=== PATIENT | male | born 1940 | race Caucasian/White ===

== ENCOUNTER 2016-05-12 09:18 | Emergency (ER) | payer OTHER ==
[2016-05-12 10:13] LABS: URINE CULTURE PL NEEDED? NO; URINE SOURCE CATH
[2016-05-12 10:16] LABS: BILIRUBIN URINE NEGATIVE (NEGATIVE); BLOOD URINE 4+ (NEGATIVE); CLARITY CLEAR (CLEAR); COLOR YELLOW; GLUCOSE URINE NEGATIVE (NEGATIVE); LEUKOCYTES URINE NEGATIVE (NEGATIVE); NITRITE URINE NEGATIVE (NEGATIVE); PROTEIN URINE TRACE mg/dL (NEGATIVE); UROBILINOGEN URINE NORMAL
[2016-05-12 10:20] LABS: URINE RBC TNTC /HPF (<10)
--- NOTE | 2016-05-12 10:29 | PROVIDER DOCUMENTATION ---
HPI-General Adult - General Chief Complaint: Urinary Retention Stated Complaint: URINARY RETENTION Time Seen by Provider: 05/12/16 09:58 Source: patient Allergies/Adverse Reactions: Patient Allergies Allergy/AdvReac Type Severity Reaction Status Date / Time No Known Allergies Allergy Verified 11/12/14 12:35 Home Medications: Aspirin 81 mg PO DAILY 11/12/14 Cyclobenzaprine [Flexeril] 10 mg PO PRN PRN 12/09/14 Lorazepam [Ativan] 1 mg PO BID 12/09/14 Tamsulosin [Flomax] 0.4 mg PO DAILY 12/09/14 - History of Present Illness -Gen Adult Nature of Presenting Problems: Pt. is 76 yom that presents with c/o urinary retention that began yesterday. Pt. has been having BM's but suddenly became unable to urinate. Pt. reports an increase in lower extremity edema. Pt. also reports some recent diarrhea. Family at bedside reports a recent change in the patients diet. Pt. denies any flank pain or other symptoms. Location of Pain/Injury: reports: pelvis. denies: head, face, mouth, neck, chest, upper extremity, hand(s), abdomen, back, genitalia, lower extremity, feet , upper body, lower body, generalized Pain Radiation: reports: no radiation Quality of Pain: reports: aching. denies: burning, cramping, dull, fullness, indigestion, pressure, sharp, stabbing, tearing, throbbing, tightness Severity: reports: moderate. denies: mild, severe Onset/Duration: reports: gradual, 24 hours ago Timing: reports: still present, constant. denies: improving, gone now, resolved prior to arrival, intermittent, changing over time, getting worse Context/Activities at Onset: reports: none. denies: recent emotional stress, recent physical stress, recent trauma history, possible bad food, cold exposure , out of country travel Modifying Factors: improves with: nothing Associated Symptoms: reports: genitourinary problems. denies: anxiety, arm pain , back/neck pain, chest pain, constipation, cough, diaphoresis, diarrhea, dizziness, EENT symptoms, fatigue, fever/chills, headaches, heartburn, joint pain, loss of appetite, malaise, muscle aches, sinus congestion/drainage, nausea , rash, seizure, shortness of breath, sensory/motor loss, pain with inspiration , swelling/mass in abdomen, syncope, vomiting, weakness, trouble walking Similar Symptoms Previously?: Yes Recently seen or treated by another doctor?: No Review of Systems - Adult - REVIEW OF SYSTEMS - ADULT Constitutional: reports: see HPI. denies: chills, fever, fatique Eyes: reports: see HPI. denies: discharge, blurred vision, double vision Ears, Nose, Mouth & Throat: reports: see HPI. denies: ear discharge, ear pain, hearing loss, nose pain, loose teeth, mouth/dental pain, throat swelling Cardiovascular: reports: see HPI. denies: chest pain, irregular heart rate, orthopnea, palpitations, syncope Respiratory: reports: see HPI. denies: chronic cough, cough, dyspnea on exertion, pleurisy, shortness of breath, wheezing Gastrointestinal: reports: see HPI. denies: abdominal pain, hematemesis, difficulty swallowing, frequent heartburn, nausea, poor appetite, vomiting Genitourinary: reports: see HPI, hematuria, urinary retention. denies: discharge, flank pain, frequent UTI's, hesitency Musculoskeletal: reports: see HPI. denies: bone pain, back pain, joint pain, muscle aches, neck pain Integumentary: reports: see HPI. denies: hives, itching, rash, skin thickening Neurological: reports: see HPI. denies: ataxia, headache/migraines, paresthesia , seizure, slurred speech, tremors Psychiatric: reports: see HPI. denies: anxiety, depression, emotional problems , insomnia, panic attacks, suicidal thoughts Past History - Adult - PAST MEDICAL HISTORY-ADULT Review of Records: reports: Old Records Reviewed, Nursing Assessment Review, Medications Reviewed, Social history reviewed & non-contributory. Major Childhood Illnesses: reports: denies history Psychiatric: reports: anxiety - PRIOR SURGERIES/PROCEDURES Surgical/Procedure History: reports: appendectomy, hernia repair - IMMUNIZATION STATUS Childhood Immunizations: See Nurse Assessment Flu Vaccine: See Nurse Assessment Physical Exam-General - PHYSICAL EXAM-ADULT Initial Vital Signs Reviewed: Yes - CONSTITUTIONAL General Appearance: alert, mild distress, thin. negative: obese, anxious, lethargic, slow to respond, obtunded, combative - EYES Eyes: PERRL/EOMI, pink conjunctivae. negative: conjuctival exudate, photophobia , subconjunctival hemorrhage - HEAD, EARS, NOSE, MOUTH & THROAT HENMT: normocephalic/atraumatic, moist mucous membranes, normal ENT inspection. negative: angioedema, frontal tenderness, maxillary tenderness - NECK Neck: non-tender, normal inspection. negative: lymphadenopathy, trachial deviation, thyromegaly - RESPIRATORY Respiratory: lungs clear, normal breath sounds. negative: crackles, rales, rhonchi, stridor, wheezing - CARDIOVASCULAR Cardiovascular: normal peripheral pulses, regular rate, rhythm, no edema, no JVD , no murmur. negative: extra beats, friction rub, irregularly irregular - CHEST (BREASTS) Chest/Breast: deferred - GASTROINTESTINAL (ABDOMEN) Abdominal Exam: normal bowel sounds, non tender, soft. negative: distended, guarding, rigid, rebound, tenderness, hernia, mass - GENITOURINARY Male Genitalia: deferred Rectal Exam: deferred Hemoccult Exam: deferred - LYMPHATIC Lymphatic: no adenopathy. negative: axilla node tender, cervical node tenderness - MUSCULOSKELETAL Back Exam: normal inspection, no CVA tenderness, no vertebral tenderness. negative: ecchymosis, muscle spasm, vertebral tenderness Extremity: normal range of motion, non-tender, pedal edema. negative: deformity , erythema, inflammation, swelling, tenderness Peripheral Pulses: radial (R): 2+, radial (L): 2+ - SKIN Integumentary: normal color, normal turgor, warm/dry. negative: cyanosis, diaphoresis, ecchymosis, erythema, jaundice, mottled, pallor, petechiae, purpura , rash, swelling, tenderness - NEUROLOGIC Neurologic: grossly normal, no motor/sensory deficits. negative: aphasia, facial droop, focal weakness, motor weakness, sensory deficit - PSYCHIATRIC Psych/Mental Status: normal mood/affect, normal thought content, normal thought process, oriented x 3. negative: anxious, paranoid, tearful Progress - PLAN OF CARE/RESULTS Progress/Plan/Lab Results: Discussed results and plan of care with patient. Patient agrees with plan and verbalizes understanding. Vital Signs Temp Pulse Resp BP Pulse Ox 05/12/16 09:26 97.8 F 86 18 142/85 100 No Known Allergies Allergy (Verified 11/12/14 12:35) Aspirin 81 mg PO DAILY 11/12/14 Cyclobenzaprine [Flexeril] 10 mg PO PRN PRN 12/09/14 Lorazepam [Ativan] 1 mg PO BID 12/09/14 Tamsulosin [Flomax] 0.4 mg PO DAILY 12/09/14 Carbidopa/Levodopa [Sinemet 25/100] 1 each PO TID #90 tablet 12/12/14 Citalopram [Celexa] 20 mg PO QHS #30 tablet 12/12/14 Lactulose 30 ml PO DAILY PRN #30 udc 12/12/14 Polyethylene Glycol 3350 [Miralax] 17 gm PO DAILY #30 powder, packet 12/12/14 I&O 05/11/16 05/12/16 05/13/16 06:59 06:59 06:59 Output Total 1000 Balance -1000 Laboratory 05/12/16 10:00 Urine Source CATH Urine Color YELLOW Urine Clarity CLEAR Urine pH 5.0 Ur Specific Wilson 1.020 Urine Protein TRACE A Urine Ketones TRACE Urine Blood 4+ Urine Nitrite NEGATIVE Urine Bilirubin NEGATIVE Urine Urobilinogen NORMAL Urine Microscopic RBC TNTC A Urine WBC NEGATIVE Urine Glucose NEGATIVE Orders Category Date Time Status Bladder Scan and Record Result ORDERED Care 05/12/16 09:58 Active Rowley Cath Insertion ORDERED Care 05/12/16 10:[address] W/POSS RFLX CULT [URINALYSIS] Stat Lab 05/12/16 10:00 Completed Laboratory Tests 05/12/16 10:00 Urine Source CATH Urine Color YELLOW Urine Clarity CLEAR Urine pH 5.0 Ur Specific Wilson 1.020 Urine Protein TRACE A Urine Ketones TRACE Urine Blood 4+ Urine Nitrite NEGATIVE Urine Bilirubin NEGATIVE Urine Urobilinogen NORMAL Urine Microscopic RBC TNTC A Urine WBC NEGATIVE Urine Glucose NEGATIVE Laboratory Tests 05/12/16 05/12/16 05/12/16 10:00 11:00 11:00 WBC 5.59 RBC 4.31 L Hgb 13.1 L Hct 38.8 L MCV 90.0 MCH 30.4 MCHC 33.8 RDW Std Deviation 12.8 Plt Count 207 MPV 9.0 Immature Gran % (Auto) 0.2 Neut % (Auto) 76.7 H Lymph % (Auto) 16.3 L Falls % (Auto) 5.9 Eos % (Auto) 0.4 Baso % (Auto) 0.5 Immature Gran # (Auto) 0.01 Neut # (Auto) 4.29 Lymph # (Auto) 0.91 L Falls # (Auto) 0.33 Eos # (Auto) 0.02 Baso # (Auto) 0.03 Sodium 133 L Potassium 4.0 Chloride 98 Carbon Dioxide 29 Anion Gap 7 BUN 16 Creatinine 0.8 BUN/Creatinine Ratio 20 Glucose 95 Calculated Osmolality 267 Calcium 8.9 Total Bilirubin 1.40 H AST 25 ALT 3 L Alkaline Phosphatase 48 [id number] Pept Total Protein 6.2 L Albumin 3.9 Globulin 2.0 Albumin/Globulin Ratio 2.0 Lipase Urine Source CATH Urine Color YELLOW Urine Clarity CLEAR Urine pH 5.0 Ur Specific Wilson 1.020 Urine Protein TRACE A Urine Ketones TRACE Urine Blood 4+ Urine Nitrite NEGATIVE Urine Bilirubin NEGATIVE Urine Urobilinogen NORMAL Urine Microscopic RBC TNTC A Urine WBC NEGATIVE Urine Glucose NEGATIVE 05/12/16 05/12/16 11:00 11:00 WBC RBC Hgb Hct MCV MCH MCHC RDW Std Deviation Plt Count MPV Immature Gran % (Auto) Neut % (Auto) Lymph % (Auto) Falls % (Auto) Eos % (Auto) Baso % (Auto) Immature Gran # (Auto) Neut # (Auto) Lymph # (Auto) Falls # (Auto) Eos # (Auto) Baso # (Auto) Sodium Potassium Chloride Carbon Dioxide Anion Gap BUN Creatinine BUN/Creatinine Ratio Glucose Calculated Osmolality Calcium Total Bilirubin AST ALT Alkaline Phosphatase [id number] Pept 136 Total Protein Albumin Globulin Albumin/Globulin Ratio Lipase 27 Urine Source Urine Color Urine Clarity Urine pH Ur Specific Wilson Urine Protein Urine Ketones Urine Blood Urine Nitrite Urine Bilirubin Urine Urobilinogen Urine Microscopic RBC Urine WBC Urine Glucose Departure - Departure Time of Disposition Order: 12:15 DIAGNOSIS: Urinary retention Disposition: HOME 01 Certified Medical Emergency: Emergent Condition: Stable Additional Instructions: Follow up with primary care physician Follow up with Urologist Keep rowley cath in until you see the urologist Return to ED for any concerns or worsening of symptoms ED Follow Up Instructions: You have been treated by a care provider in the Emergency Department. These instructions are being provided to you so you can have an understanding of how to care for yourself upon discharge. Upon discharge from the Emergency Department, you are responsible for making arrangements for follow-up care by a physician of your choice. Take all prescribed medications as directed. Return to the Emergency Department immediately for any new or worsening symptoms. You may call the Physician Referral phone number at [phone] to obtain a list of Physicians who are taking new patients. Referrals: None,PCP [Primary Care Provider] - Robbie Eldridge MD [STAFF PHYSICIAN] - Attestation - Physician/ Mid-level Attestation Patient care was provided by Mid-level provider (MICROELECTRONICS ENGINEER/PA):: Yes Mid-level provider:: Raudel Burris Mid-level documentation review:: The Mid-level provider documentation, treatment plan and medical decision making was reviewed by the physician who agrees with all treatment and medical decision making by the MLP.
[2016-05-12 11:02] LABS: MANUAL DIFF NEEDED? NO
[2016-05-12 11:03] LABS: BASO% 0.5 % (0.0-0.8); EOS# 0.02 X1000 (0.0-0.7); EOS% 0.4 % (0.0-10.0); HEMATOCRIT 38.8 % (42.0-52.0); HEMOGLOBIN 13.1 g/dL (14.0-18.0); IMM GRAN# 0.01 X1000 (0.0-0.04); IMM GRAN% 0.2 % (0.0-0.5); LYMPH# 0.91 X1000 (1.2-3.4); LYMPH% 16.3 % (20.5-51.1); MCH 30.4 PG (27-31); MCHC 33.8 g/dL (33-37); MONO# 0.33 X1000 (0.11-0.59); MONO% 5.9 % (1.7-9.3); NEUT% 76.7 % (42.2-75.2); PLT 207 X1000 (130-400); RBC 4.31 XMIL (4.7-6.1)
[2016-05-12 12:01] LABS: CHLORIDE 98 mmol/L (98-107); SODIUM 133 mmol/L (136-145)
[2016-05-12 12:02] LABS: AGAP 7; ALBUMIN 3.9 g/dL (3.5-5.0); ALKALINE PHOSPHATASE 48 U/L (32-122); BUN 16 mg/dL (8-22); CALCIUM 8.9 mg/dL (8.8-10.2); COSMO 267; GOT 25 U/L (10-34); GPT 3 U/L (10-44); TCO2 29 mmol/L (25-35); TOTAL PROTEIN 6.2 g/dL (6.3-8.3)
[2016-05-12 12:52] VITALS: BP 142/74
== END 2016-05-12 12:51 | disposition home or self-care (01) ==
LOC: P.ED 09:18
DX: R33.9 Retention of urine, unspecified (principal); R60.0 Localized edema; R19.7 Diarrhea, unspecified; R31.9 Hematuria, unspecified; F41.9 Anxiety disorder, unspecified; Z79.82 Long term (current) use of aspirin; Z79.899 Other long term (current) drug therapy
CPT/HCPCS: 36415; 51702; 51798; 80053; 81001; 83690; 83880; 85025; 99283

== ENCOUNTER 2016-12-15 20:50 | Inpatient (IN) ==
[~2016-12-15 20:50] MED LIST: ADENOCARD ONE
[2016-12-15] MEDS ORDERED: ASPIRIN PO STA (20:53)
[2016-12-15] MEDS ORDERED: ADENOCARD IV ONE (20:54)
[2016-12-15] MEDS ORDERED: CARDIZEM ONE (21:01)
[2016-12-15 21:04] LABS: MANUAL DIFF NEEDED? NO
[2016-12-15] MEDS ORDERED: CARDIZEM PO ONE (21:05)
[2016-12-15 21:12] LABS: BASO% 1.2 % (0.0-0.8); EOS# 0.28 X1000 (0.0-0.7); EOS% 3.2 % (0.0-10.0); HEMATOCRIT 45.9 % (42.0-52.0); HEMOGLOBIN 15.1 g/dL (14.0-18.0); IMM GRAN# 0.03 X1000 (0.0-0.04); IMM GRAN% 0.3 % (0.0-0.5); LYMPH# 3.61 X1000 (1.2-3.4); LYMPH% 41.8 % (20.5-51.1); MCH 28.3 PG (27-31); MCHC 32.9 g/dL (33-37); MCV 86.1 FL (81-99); MONO# 0.68 X1000 (0.11-0.59); MONO% 7.9 % (1.7-9.3); NEUT% 45.6 % (42.2-75.2); PLT 255 X1000 (130-400); RBC 5.33 XMIL (4.7-6.1)
[2016-12-15] MEDS ORDERED: NS 1,000 ML IV ONE (21:16)
--- NOTE | 2016-12-15 21:17 | EKG Report ---
Test Performed on : 12/15/2016 8:53:26 PM Test Reason : CHEST PAIN Blood Pressure : / mmHG Vent. Rate : 101 BPM Atrial Rate : 101 BPM P-R Int : 160 ms QRS Dur : 088 ms QT Int : 318 ms P-R-T Axes : 028 -29 020 degrees QTc Int : 412 ms Sinus tachycardia. with premature atrial complexes. Moderate voltage criteria for LVH, may be normal variant Borderline ECG When compared with ECG of 15-DEC-2016 20:52, (Unconfirmed) premature atrial complexes. are now present Vent. rate has decreased BY 100 BPM Incomplete right bundle branch block is no longer present Unconfirmed Result
--- NOTE | 2016-12-15 21:17 | EKG Report ---
Test Performed on : 12/15/2016 8:52:01 PM Test Reason : svt Blood Pressure : / mmHG Vent. Rate : 201 BPM Atrial Rate : 030 BPM P-R Int : 000 ms QRS Dur : 102 ms QT Int : 252 ms P-R-T Axes : 000 -28 045 degrees QTc Int : 461 ms Supraventricular tachycardia. Incomplete right bundle branch block Minimal voltage criteria for LVH, may be normal variant Nonspecific ST and T wave abnormality Abnormal ECG No previous ECGs available Unconfirmed Result
[2016-12-15 21:23] LABS: INR 0.88 (0.86-1.15); PROTIME 12.7 Seconds (12.1-15.5)
[2016-12-15 21:24] LABS: PTT PL 29.5 Seconds (22.6-43.9)
[2016-12-15 21:26] LABS: AGAP 12; ALBUMIN 4.2 g/dL (3.5-5.0); ALKALINE PHOSPHATASE 123 U/L (32-122); BUN 9 mg/dL (8-22); CALCIUM 9.1 mg/dL (8.8-10.2); CHLORIDE 97 mmol/L (98-107); CK PROFILE 113 U/L (24-204); COSMO 270; GOT 19 U/L (10-34); GPT 12 U/L (10-44); POTASSIUM 4.1 mmol/L (3.5-5.1); SODIUM 135 mmol/L (136-145); TCO2 26 mmol/L (25-35); TOTAL PROTEIN 7.6 g/dL (6.3-8.3)
--- NOTE | 2016-12-15 21:34 | PROVIDER DOCUMENTATION ---
This chart was entered by Sabine Prabhakar Scribe, acting as scribe for Damian Salgado MD. HPI-Cardiac General - General Stated Complaint: SVT Time Seen by Provider: 12/15/16 20:50 Source: patient Allergies/Adverse Reactions: Patient Allergies Allergy/AdvReac Type Severity Reaction Status Date / Time No Known Allergies Allergy Verified 06/17/16 22:35 Home Medications: Home Medication List Medication Instructions Recorded Confirmed Last Taken Type Carbidopa/Levodopa [Sinemet 25/100] 1 each PO 4XDAY 30 Days 06/22/16 Unknown Rx Cyanocobalamin (Vitamin B-12) 1,000 mcg PO DAILY #30 tablet 06/22/16 Unknown Rx [Vitamin B-12] Duloxetine [Cymbalta] 30 mg PO DAILY #30 capsule 06/22/16 Unknown Rx Furosemide [Lasix] 20 mg PO DAILY #30 tablet 06/22/16 Unknown Rx Levofloxacin [Levaquin] 500 mg PO DAILY #2 tablet 06/22/16 Unknown Rx Lorazepam [Ativan] 1 mg PO BID 30 Days 06/22/16 Unknown Rx Mirtazapine [Remeron] 15 mg PO QHS 30 Days 06/22/16 Unknown Rx Potassium Chloride E.r. [Klor-Con] 10 meq PO DAILY #30 tablet 06/22/16 Unknown Rx - History of Present Illness-Cardiac Nature of Presenting Problem: 76 year old M presents to the ED with a cc of chest pain and SVT. 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 EMS states that pt did convert back to sinus tachycardia and then back into SVT. On arrival PT was still in SVT but denies chest pain. Pt was give 12 mg of Adenesine and converted into sinus tachycardia. Severity in ED: moderate Onset/Duration: this evening Timing: still present Palpitation Quality: irregular History of arrythmia: reports: SVT Similar Symptoms Previously?: No Recently Seen Here or By Another Healthcare Provider: No Review of Systems - Adult - REVIEW OF SYSTEMS - ADULT Constitutional: denies: chills, fever Eyes: reports: no symptoms reported Ears, Nose, Mouth & Throat: reports: no symptoms reported Cardiovascular: reports: chest pain, palpitations Respiratory: reports: shortness of breath. denies: cough Gastrointestinal: denies: nausea, vomiting Genitourinary: reports: no symptoms reported Musculoskeletal: reports: no symptoms reported Integumentary: reports: no symptoms reported Neurological: reports: no symptoms reported Psychiatric: reports: no symptoms reported Endocrine: reports: no symptoms reported Hematologic/Lymphatic: reports: no symptoms reported Allergic/Immunologic: reports: no symptoms reported All Other Systems: Reviewed and Negative Past History - Adult - PAST MEDICAL HISTORY-ADULT Review of Records: reports: Nursing Assessment Review, Medications Reviewed Major Childhood Illnesses: reports: denies history Cardiovascular: reports: arrhythmia (SVT), HTN Neurological: reports: Parkinson's Psychiatric: reports: anxiety - PRIOR SURGERIES/PROCEDURES Surgical/Procedure History: reports: appendectomy, hernia repair - IMMUNIZATION STATUS Childhood Immunizations: See Nurse Assessment Flu Vaccine: See Nurse Assessment - SOCIAL HISTORY Smoking: non-smoker Substance Use: none/never Alcohol Use Frequency: never Physical Exam-General - CONSTITUTIONAL General Appearance: alert - RESPIRATORY Respiratory: chest non-tender, lungs clear, normal breath sounds - CARDIOVASCULAR Cardiovascular: tachycardia, irregularly irregular (SVT) - GASTROINTESTINAL (ABDOMEN) Abdominal Exam: normal bowel sounds, non tender, soft - SKIN Integumentary: diaphoresis - PSYCHIATRIC Psych/Mental Status: normal mood/affect, normal thought content, normal thought process, oriented x 3 Progress - PLAN OF CARE/RESULTS Progress/Plan/Lab Results: Vital Signs - 8 hr 12/15/16 20:50 12/15/16 20:58 12/15/16 21:09 Pulse Rate 202 H 101 H 100 H Respiratory Rate 22 20 18 Blood Pressure 133/102 141/99 124/85 O2 Sat by Pulse Oximetry 97 98 98 Laboratory Results - last 24 hr 12/15/16 12/15/16 12/15/16 20:55 20:55 20:55 WBC 8.64 RBC 5.33 Hgb 15.1 Hct 45.9 MCV 86.1 MCH 28.3 MCHC 32.9 L RDW Std Deviation 13.6 Plt Count 255 MPV 9.0 Immature Gran % (Auto) 0.3 Neut % (Auto) 45.6 Lymph % (Auto) 41.8 Sac % (Auto) 7.9 Eos % (Auto) 3.2 Baso % (Auto) 1.2 H Immature Gran # (Auto) 0.03 Neut # (Auto) 3.94 Lymph # (Auto) 3.61 H Sac # (Auto) 0.68 H Eos # (Auto) 0.28 Baso # (Auto) 0.10 PT INR APTT (Factor Assay) D-Dimer Sodium 135 L Potassium 4.1 Chloride 97 L Carbon Dioxide 26 Anion Gap 12 BUN 9 Creatinine 1.0 Estimated GFR/1.73 m2 > 60 BUN/Creatinine Ratio 9 Glucose 122 H Calculated Osmolality 270 Calcium 9.1 Magnesium 2.0 Total Bilirubin 0.60 AST 19 ALT 12 Alkaline Phosphatase 123 H Creatine Kinase 113 Troponin T < 0.010 Total Protein 7.6 Albumin 4.2 Globulin 3.0 Albumin/Globulin Ratio 1.0 12/15/16 20:55 WBC RBC Hgb Hct MCV MCH MCHC RDW Std Deviation Plt Count MPV Immature Gran % (Auto) Neut % (Auto) Lymph % (Auto) Sac % (Auto) Eos % (Auto) Baso % (Auto) Immature Gran # (Auto) Neut # (Auto) Lymph # (Auto) Sac # (Auto) Eos # (Auto) Baso # (Auto) PT 12.7 INR 0.88 APTT (Factor Assay) 29.5 D-Dimer 0.41 Sodium Potassium Chloride Carbon Dioxide Anion Gap BUN Creatinine Estimated GFR/1.73 m2 BUN/Creatinine Ratio Glucose Calculated Osmolality Calcium Magnesium Total Bilirubin AST ALT Alkaline Phosphatase Creatine Kinase Troponin T Total Protein Albumin Globulin Albumin/Globulin Ratio Orders Category Date Time Status Admit - [facility] Routine AdmDCTranf 12/15/16 21:16 Ordered Activity - Strict Bedrest ORDERED Care 12/15/16 21:16 Active Cardiac Monitoring DIRECTED Care 12/15/16 20:53 Active Oxygen Therapy- ED Nursing DIRECTED Care 12/15/16 20:53 Active Saline Loc NOW Care 12/15/16 20:53 Active Vital Signs Order Q 4-HR ASSESS Care 12/15/16 21:16 Active Z-Document. for Tele Applied ORDERED Care 12/15/16 21:18 Active Regular Diet Diet 12/15/16 21:18 Active CHEST-PORTABLE [RAD] Stat Exams 12/15/16 20:53 Ordered CBC WITH ELECTRONIC DIFF [HEME] Stat Lab 12/15/16 20:55 Completed CK PROFILE [SP CHEM] Stat Lab 12/15/16 20:55 Completed COMPREHENSIVE METABOLIC PANEL [CHEM] Stat Lab 12/15/16 20:[address] Com[address] D-DIMER [address] [COAG] Stat Lab 12/15/16 20:55 Completed MAGNESIUM [CHEM] Stat Lab 12/15/16 20:55 Completed PRO B-NATRIURETIC PEPTIDE Stat Lab 12/15/16 20:[address] Re[address]IME WITH INR PL [COAG] Stat Lab 12/15/16 20:[address] [COAG] Stat Lab 12/15/16 20:55 Completed TROPONIN T Stat Lab 12/15/16 20:55 Completed 0.9% Sodium Chloride Inj [Ns] 1,000 ml Med 12/15/16 21:16 Active IV 100 mls/hr Adenosine [Adenocard] Med 12/15/16 20:54 Discontinued 12 mg IV NOW ONE Aspirin Med 12/15/16 20:53 Discontinued 325 mg PO STAT STA Diltiazem [Cardizem] Med 12/15/16 21:01 Discontinued 60 mg .ROUTE .STK-MED ONE Diltiazem [Cardizem] Med 12/15/16 21:05 Discontinued 60 mg PO NOW ONE Diltiazem [Cardizem] Med 12/16/16 05:00 Ordered 60 mg PO Q8HR Oxygen Device Routine Oth 12/15/16 21:18 Active Telemetry [OM.EQ] Routine Oth 12/15/16 21:16 Active EKG [EKG] Stat Ther 12/15/16 20:53 Draft EKG [EKG] Stat Ther 12/15/16 20:54 Draft Transfer/Admit Order [TRANSFER] Routine Transfer 12/15/16 21:15 Ordered Result Diagrams: 12/15/16 20:55 12/15/16 20:55 - EKG 1 Time of EKG reading by physician:: 20:52 EKG Read and Signed by:: Damian Salgado EKG Interpretation (*Must complete 3 of following elements*): Abnormal Rate: 201 Rhythm: supraventricular tachycardia QRS: RBB (incomplete), LVH ST Wave: non-specific ST changes 2 Time of EKG reading by physician:: 20:53 EKG Read and Signed by:: Damian Salgado EKG Interpretation (*Must complete 3 of following elements*): Abnormal Rate: 101 Rhythm: sinus tachycardia with PACs QRS: LVH - XRAY 1 XRAY Study: Chest Impression: Normal XRAY Interpretation: negative: Dr. Salgado(ER MD) - CONSULTS/PCP/HOSPITALIST Notification #1 *Consult/PCP/Hospitalist*: Dr. Arguello(hospitalist) Time Discussed: 21:13 Reason/Comments: consult for admission Consult Disposition: Admit Departure - Departure Date of Disposition Decision: 12/15/16 Time of Disposition Decision: 21:31 DIAGNOSIS: SVT (supraventricular tachycardia) Disposition: ADMITTED INPATIENT 09 Certified Medical Emergency: Emergent Condition: Stable Referrals and Follow-Ups: None,PCP [Primary Care Provider] - - Critical Care Note This patient required my direct & personal management of CC.: Yes Total Time (mins): 40 Critical Care Statement: This patient required my direct personal management to treat or rule out processes, the absence of which, could potentiallly result in sudden, clinically significant life or limb threatening deterioration. Attestation - Physician/ CRISTY Attestation The physician spent face to face time with patient:: Yes Advanced Practice Provider documentation review:: Supervising physician onsite and consulted in the evaluation and care of this patient. The physician did have a face to face encounter with the patient. This chart was documented by the indicated scribe, (Sabine Prabhakar Scribe) and accurately reflects the services I performed and decisions made by me, Damian Salgado MD, as attested by the provider's signature.
--- NOTE | 2016-12-15 22:00 | Diag Imaging Result Doc PS360 ---
EXAM: CHEST-PORTABLE INDICATION: CP TECHNIQUE: One view COMPARISON: 06/17/2016 FINDINGS: Inspiration is suboptimal. The lungs are grossly clear. There is no discrete pleural fluid collection or pneumothorax. The cardiomediastinal silhouette and central vasculature are grossly unremarkable. IMPRESSION: Low lung volumes but no definite acute pathology by plain radiograph, otherwise. Electronically signed by Ru Castillo 12/15/2016 9:58 PM
--- NOTE | 2016-12-16 00:54 | EKG Report ---
Test Performed on : 12/16/2016 00:34:31 AM Test Reason : protocol Blood Pressure : / mmHG Vent. Rate : 079 BPM Atrial Rate : 079 BPM P-R Int : 186 ms QRS Dur : 092 ms QT Int : 396 ms P-R-T Axes : 033 -35 019 degrees QTc Int : 454 ms Normal sinus rhythm. Left axis deviation Abnormal ECG When compared with ECG of 15-DEC-2016 20:53, (Unconfirmed) premature atrial complexes. are no longer present Unconfirmed Result
[2016-12-16] MEDS: CARDIZEM PO SCH ×3 (05:37→20:07)
[2016-12-16] MEDS ORDERED: MOTRIN PO PRN (09:12)
[2016-12-16] MEDS: CYMBALTA PO SCH (09:51)
[2016-12-16] MEDS: ATIVAN PO SCH ×2 (09:51→20:06)
[2016-12-16] MEDS: LASIX PO SCH (09:51)
--- NOTE | 2016-12-16 12:16 | CONSULTATION ---
DATE OF CONSULTATION: 12/16/2016 INDICATION: Supraventricular tachycardia. HISTORY OF PRESENT ILLNESS: Mr. Wise is a 76-year-old, white male with a history of Parkinson's who presented yesterday with complaints of heart racing and lightheadedness. He was apparently standing in his assisted living facility and subsequently felt very lightheaded with a sensation of heart racing. He apparently had his nurse come on or staff at the facility come in and they noted that his heart rate was quite elevated. They sent him to the ER where he was noted to be in what appeared to be an SVT with a rate of around 200 beats per minute. He was administered adenosine as well as diltiazem in the ER and that broke the arrhythmia. He did not have any overt chest pain. No shortness of breath. He reports compliance with his medications and no recent alteration in his medication schedule. There was no overt syncope that he is aware of. PAST MEDICAL HISTORY: Significant for Parkinson's. SOCIAL HISTORY: He currently lives at [facility]. No tobacco use. FAMILY HISTORY: Hypertension. REVIEW OF SYSTEMS: A 10 system review of systems is negative except for those mentioned in HPI. PHYSICAL EXAMINATION: Vital signs: During this hospitalization he has been afebrile. His heart rates more recently have been in the 70s to 90s. His blood pressure is 90/68. Previous to that they were in the 110s to 120s. General: No acute distress. HEENT: Oropharynx is moist. He does have dentures in place. Eye examination is pink conjunctivae, white sclerae. Neck: Examination shows no obvious thyromegaly or thyroid tenderness. Cardiovascular: He sounds to be in a regular rate and rhythm. His telemetry currently shows sinus rhythm. He has no lower extremity edema. No carotid bruits. Chest: Exam is relatively clear to auscultation bilaterally. He has no increased work of breathing. Abdomen: Soft, nontender, nondistended. No obvious organomegaly. Skin: Warm and dry throughout. Neurologic: He is moving all extremities well. He does have a somewhat diffuse tremor noted in his upper extremities. Psychiatric: He is alert, oriented, pleasant. Normal mood and affect. PERTINENT DATA: His initial EKG at 2051 with shows a right bundle branch block with a rate of 201 beats per minute. It appears to be regular. His subsequent EKG shows sinus rhythm, rate of 101 beats per minute. He had a chest x-ray performed demonstrating low lung volumes, but no obvious acute pathology. His laboratory data shows a white count of 8.6, hematocrit 46, platelet count 255,000, INR 0.88. D-dimer is normal. Sodium 135, potassium 4.1. BUN is 9, creatinine 1.0. Magnesium level is 2.0. Cardiac enzymes are negative. His TSH in June was checked and was normal, but he has not had one since. ASSESSMENT: Supraventricular tachycardia. PLAN: We will check an echo and a TSH. If those are unremarkable, then I would likely plan on discharging him on his current medications. He may switch diltiazem to the long-acting form at a total of 180 mg daily and follow up with cardiology in the future. cc: Toni Tan MD
[2016-12-16] MEDS: SINEMET 25/100 PO SCH ×2 (13:21→18:33)
--- NOTE | 2016-12-16 15:35 | HISTORY AND PHYSICAL ---
CHIEF COMPLAINT: "My heart is racing." HISTORY OF PRESENT ILLNESS: This is a 76-year-old gentleman with a history of Parkinson's who presented to the emergency room via EMS complaining of his heart racing and lightheadedness. This did occur while standing. He was evaluated by the staff at his assisted living and sent to the emergency room. He was found to be in SVT with a rate around 200 beats. He was given adenosine as well as Cardizem in the ER that broke the arrhythmia. He did return to sinus rhythm. He did not have any chest pain, shortness of breath. No syncope. PAST MEDICAL HISTORY: Parkinson's. SOCIAL HISTORY: He lives at [facility]. He denies any alcohol, tobacco, or illicit drug use. ALLERGIES: No known drug allergies. HOME MEDICATIONS: A list will be obtained. REVIEW OF SYSTEMS: A 14-point review of systems is discussed with the patient with the pertinent positives stated in the HPI. He denied chest pain, dizziness, syncope, any shortness of breath, PND, orthopnea, any fevers, chills, nausea, vomiting, diarrhea, constipation. PHYSICAL EXAMINATION: VITAL SIGNS: Blood pressure is 90/68 with a heart rate of 78. Respirations are 20. Temperature is 98.5 degrees with room air saturations of 94% to 96%. HEENT: Head is normocephalic, atraumatic. Pupils equal, round, react to light. EOMs are intact. Sclerae anicteric. Mucous membranes are moist. NECK: Supple with trachea midline. CARDIOVASCULAR: Regular rate and rhythm. S1 and S2 appreciated. PULMONARY: Breath sounds are clear with no increased work of breathing noted. Chest does rise and fall symmetrically with respiration. GASTROINTESTINAL: Soft, nontender, nondistended, with bowel sounds in all 4 quadrants. MUSCULOSKELETAL: Good range of motion of the joints. EXTREMITIES: No clubbing, cyanosis, or edema. Calves are nontender and pulses are palpable x4. SKIN: Warm and dry. NEUROLOGIC: He is alert. He is oriented. He moves all extremities well. He does have an intentional tremor to his upper extremities. PERTINENT DATA: WBC is 8.6 with hemoglobin 15.1, hematocrit 45.9, and platelets of 255,000. Sodium is 135, potassium 4.1, BUN 9, creatinine 1, with a glucose of 122. Troponin is negative on multiple occasions. TSH is 1.77. EKG initially revealed a right bundle-branch block with a rate of 201. Subsequent EKG reveals sinus rhythm at a rate of 101. ASSESSMENT: 1. Supraventricular tachycardia. 2. Hypertension. 3. Parkinson's. 4. Anxiety and depression. PLAN: He has been admitted to ICU. We will continue to monitor him here. We will consult Cardiology. We will obtain an echocardiogram. Give supplemental oxygen. We will trend his labs. Further treatments pending hospital course. Dictated by JC Yang for Daljit Arguello MD cc: JC Yang MD
[2016-12-16] MEDS ORDERED: ATIVAN PO SCH (21:00)
[2016-12-16] MEDS ORDERED: REMERON PO SCH (21:00)
[2016-12-17] MEDS: CYMBALTA PO SCH (08:56)
[2016-12-17] MEDS: SINEMET 25/100 PO SCH (08:57)
[2016-12-17] MEDS: LASIX PO SCH (08:57)
[2016-12-17] MEDS ORDERED: VITAMIN B-12 PO SCH (09:00)
[2016-12-17] MEDS ORDERED: ASPIRIN EC PO SCH (09:00)
[2016-12-17] MEDS ORDERED: CARDIZEM CD PO SCH (09:00)
[2016-12-17] MEDS ORDERED: KLOR-CON PO SCH (09:00)
[2016-12-17] MEDS ORDERED: ATIVAN PO SCH (09:00)
[2016-12-17 12:40] VITALS: BP 145/76
--- NOTE | 2016-12-17 17:22 | DISCHARGE SUMMARY ---
ADMISSION DATE: 12/15/2016 DISCHARGE DATE: 12/17/2016 DIAGNOSES: 1. Supraventricular tachycardia resolved. 2. Hypertension. 3. Parkinson's. 4. Anxiety and depression. CONSULTATION: Toni Tan MD in Cardiology. DIAGNOSTICS: 1. 12/15/2016 chest x-ray revealed low lung volumes but no definite acute pathology. 2. EKG initially showed a right bundle branch block with a rate of 201. Subsequent EKG shows sinus rhythm at a rate of 101. He has remained in sinus rhythm per telemetry. HOSPITAL COURSE: Mr. Wise presented to the emergency room after having an episode of feeling lightheaded with a sensation of his heart racing. He was found to be in SVT at a rate of around 200. He was given adenosine as well as Cardizem in the ER which broke the SVT and converted to sinus rhythm where he has remained with heart rates that stayed in the 80s to 90s over the last 24 hours. He was evaluated by Dr. Toni Tan in Cardiology. Cardizem CD has been started. We did identify his home medications and continue as appropriate. He has had no further sensations of lightheadedness or heart racing. DISCHARGE PHYSICAL EXAMINATION: Cardiovascular: Regular rate and rhythm. S1 and S2 are appreciated. Pulmonary: Breath sounds are clear with no increased work of breathing noted. Gastrointestinal: Abdomen is soft, nontender, nondistended with bowel sounds in all 4 quadrants. Extremities: No clubbing, cyanosis, or edema. Calves are nontender. Pulses are palpable x4. He does have a tremor in bilateral upper extremities secondary to Parkinson's. DISCHARGE MEDICATIONS: 1. Ativan 0.5 mg p.o. q.a.m. 2. Ativan 1 mg p.o. at bedtime. 3. Aspirin 81 mg daily. 4. Remeron 15 mg at bedtime. 5. Lasix 20 mg daily. 6. Cymbalta 30 mg daily. 7. Vitamin B12, 1000 mcg daily. 8. Sinemet 25/100, 1 p.o. t.i.d. 9. Klor-Con 10 mEq daily. 10. Cardizem CD 180 mg daily. FOLLOWUP: He needs to follow up with Dr. Toni Tan in the next 2-4 weeks. DISPOSITION: He is being discharged back to [facility] [place] in stable condition with family members present. DISCHARGE TIME: This is a greater than 30 minute discharge. Dictated by Evonne J. Slaten, INGREDIENT HANDLER for Daljit Arguello MD cc: JC Yang MD
--- NOTE | 2016-12-17 21:13 | ECHO REPORT ---
ORDER DATE: 12/16/2016 MEASUREMENTS: Left ventricular end-diastolic diameter 4.8, systolic diameter 3.3, septal thickness 1.0, posterior wall thickness 1.0, left atrium 3.3, aortic root 3.7. SUMMARY: 1. Technically difficult study due to limited acoustic window quality. 2. Mild sclerosis of trileaflet aortic valve demonstrated with normal aortic valve opening evident. Mitral, tricuspid and pulmonic valves are without structural abnormality with trace tricuspid regurgitation. Estimated systolic PA pressure by Doppler is 30-35 mmHg. Aortic root is normal size. 3. Normal left ventricular dimensions demonstrated. Estimated left ejection fraction appears to be at least 65%. No regional wall motion abnormalities are evident. Doppler suggests grade 1 left ventricular diastolic dysfunction. Left atrium, right atrium and right ventricle are normal in size with normal right ventricular systolic function. 4. No pericardial effusion. 5. Appearance of inferior vena cava suggests normal central venous pressure. 6. Sinus rhythm during study. cc: MD Toni Hollingsworth MD
== END 2016-12-17 12:50 ==
LOC: P.ED 20:50 → P.ICU 21:23
PROVIDERS: ATTEND Family Medicine

== ENCOUNTER 2019-07-25 17:01 | Inpatient (IN) ==
[2019-07-25] MEDS ORDERED: LASIX IV ONE (17:37)
[2019-07-25] MEDS ORDERED: VANCOMYCIN 1 GM/NS 1 GM/250 ML IVPB IV ONE (17:37)
[2019-07-25] MEDS ORDERED: ZOSYN 4.5 GM in NS 100 ML IV ONE (17:37)
[2019-07-25] MEDS ORDERED: TYLENOL PO ONE (17:41)
[2019-07-25 18:44] LABS: BE 2.8 mmoll (-3.0-3.0); BLOOD TYPE ARTERIAL; HCO3-(ACT) 27.1 mmoll (20.0-26.0); METHB 1.5 % (0.0-1.5); O2HB 95.6 % (95.0-99.0); PCO2(98.6) 35 mmHg (35-45); PO2(98.6) 96 mmHg (60-100); SAMPLE BLOOD; SAO2 99.5 % (95.0-100.0); THB 13.3 g/dL (11.5-17.4); pH(98.6) 7.48 (7.35-7.45)
[2019-07-25 18:47] LABS: MODALITY CANNULA
[2019-07-25 18:49] LABS: ALLEN TEST YES
--- NOTE | 2019-07-25 18:58 | PROVIDER DOCUMENTATION ---
This chart was entered by Jamilah Ham Scribe, acting as scribe for Adonis Arreaga MD. HPI-General Adult - General Source: patient, EMS (first response) - History of Present Illness -Gen Adult Nature of Presenting Problems: 79 yowm presents to the ed via ems from snf. per ems pt had acute onset fever, sob, BLE edema +4, abdominal pitting edema, body aches and cough intermittent 4 days prior and sx have not improved. Location of Pain/Injury: reports: generalized Pain Radiation: reports: no radiation Quality of Pain: reports: aching Severity: reports: moderate Onset/Duration: reports: 4 days ago Timing: reports: still present, intermittent Context/Activities at Onset: reports: light activity Modifying Factors: improves with: nothing Associated Symptoms: reports: cough, fever/chills, muscle aches, shortness of breath, other (edema). denies: back/neck pain, chest pain, diarrhea, dizziness, nausea, vomiting Similar Symptoms Previously?: No Recently seen or treated by another doctor?: No <Adonis Arreaga - Last Filed: 07/25/19 20:56> <Damian Salgado - Last Filed: 07/26/19 01:23> - General Chief Complaint: Shortness of Breath Stated Complaint: Fever/Cough Time Seen by Provider: 07/25/19 17:21 Allergies/Adverse Reactions: Patient Allergies Allergy/AdvReac Type Severity Reaction Status Date / Time No Known Allergies Allergy Verified 07/17/19 08:45 Home Medications: Home Medication List Medication Instructions Recorded Confirmed Last Taken Type Aspirin [Aspir-Low] 81 mg PO QAM 12/16/16 07/25/19 Unknown History Carbidopa/Levodopa [Sinemet 25/100] 1 tab PO DIRECTED 12/16/16 07/25/19 Unknown History Acetaminophen 2 tab PO Q6-8H PRN PRN 07/17/19 07/25/19 Unknown History Calcium Carb/Magnesium Hydrox 1 - 2 tab PO TID PRN 07/17/19 07/25/19 Unknown History [Antacid Chewable Tablet] Divalproex E.r. [Depakote ER] 500 mg PO QHS 07/17/19 07/25/19 Unknown History Duloxetine [Cymbalta] 60 mg PO QAM 07/17/19 07/25/19 Unknown History Fluticasone 50 Mcg Nasal [place] 1 spr INH Q12H PRN 07/17/19 07/25/19 Unknown History [Flonase] Furosemide [Lasix] 20 mg PO DAILY PRN 07/17/19 07/25/19 Unknown History Gabapentin 600 mg PO TID 07/17/19 07/25/19 Unknown History Linaclotide [Linzess] 145 mcg PO QHS PRN 07/17/19 07/25/19 Unknown History Memantine HCl [Namenda] 5 mg PO QHS 07/17/19 07/25/19 Unknown History Metoprolol Succinate E.r. [Toprol 50 mg PO QAM 07/17/19 07/25/19 Unknown History Xl] Mirtazapine [Remeron] 7.5 mg PO QHS 07/17/19 07/25/19 Unknown History Phenylephrine/Dm/Acetaminop/GG 20 ml PO Q4H PRN 07/17/19 07/25/19 Unknown History [Mucinex Fast-Max Cold-Flu Liq] Potassium Chloride E.r. [Klor-Con] 10 meq PO QAM PRN 07/17/19 07/25/19 Unknown History Tamsulosin [Flomax] 0.4 mg PO QAM 07/17/19 07/25/19 Unknown History Review of Systems - Adult - REVIEW OF SYSTEMS - ADULT Constitutional: reports: see HPI, chills, fever Eyes: reports: no symptoms reported Ears, Nose, Mouth & Throat: reports: no symptoms reported Cardiovascular: reports: see HPI, edema (BLE). denies: chest pain, palpitations Respiratory: reports: see HPI, cough, shortness of breath. denies: wheezing Gastrointestinal: reports: see HPI, other (abd edema). denies: diarrhea, nausea, vomiting Genitourinary: reports: no symptoms reported Musculoskeletal: reports: see HPI, muscle aches. denies: back pain, neck pain Integumentary: reports: no symptoms reported Neurological: denies: dizziness/vertigo, headache/migraines Psychiatric: reports: no symptoms reported Endocrine: reports: no symptoms reported Hematologic/Lymphatic: reports: no symptoms reported Allergic/Immunologic: reports: no symptoms reported All Other Systems: Reviewed and Negative <Adonis Arreaga - Last Filed: 07/25/19 20:56> Past History - Adult - PAST MEDICAL HISTORY-ADULT Review of Records: reports: Old Records Reviewed, Nursing Assessment Review, Medications Reviewed, Social history reviewed & non-contributory. Major Childhood Illnesses: reports: denies history Cardiovascular: reports: arrhythmia (SVT), HTN Respiratory: reports: denies history Gastrointestinal: reports: denies history Obstetrical/Gynecological: reports: denies history Genitourinary: reports: denies history Musculoskeletal: reports: denies history Neurological: reports: Parkinson's Psychiatric: reports: anxiety Endocrine/Immune: reports: denies history Other Conditions: reports: denies history - PRIOR SURGERIES/PROCEDURES Surgical/Procedure History: reports: appendectomy, hernia repair - IMMUNIZATION STATUS Childhood Immunizations: See Nurse Assessment Flu Vaccine: See Nurse Assessment - FAMILY HISTORY Family History: reviewed, not pertinent - SOCIAL HISTORY Smoking: denies Substance Use: denies Living Situation: family <Adonis Arreaga - Last Filed: 07/25/19 20:56> Physical Exam-General - PHYSICAL EXAM-ADULT Initial Vital Signs Reviewed: Yes (temp-98.5 RR-27 HR-101) - CONSTITUTIONAL General Appearance: alert, mild distress, cachetic - EYES Eyes: PERRL/EOMI, pink conjunctivae - HEAD, EARS, NOSE, MOUTH & THROAT HENMT: moist mucous membranes - NECK Neck: non-tender, full range of motion, supple, normal inspection - RESPIRATORY Respiratory: chest non-tender, lungs clear, normal breath sounds, increased rate (27) - CARDIOVASCULAR Cardiovascular: normal peripheral pulses, tachycardia (101) - CHEST (BREASTS) Chest/Breast: deferred - GASTROINTESTINAL (ABDOMEN) Abdominal Exam: normal bowel sounds, soft, distended (pt has edema noted to abd) . negative: guarding, rigid, rebound - GENITOURINARY Male Genitalia: deferred Rectal Exam: deferred Hemoccult Exam: deferred - LYMPHATIC Lymphatic: no adenopathy - MUSCULOSKELETAL Back Exam: no CVA tenderness, no vertebral tenderness Extremity: normal range of motion, normal capillary refill, pelvis stable, erythema (left medial knee), swelling (BLE), tenderness, other (pt has abrasion noted rt anterior below knee 4cm wide 2.5cm high) - SKIN Integumentary: normal color, normal turgor, warm/dry - NEUROLOGIC Neurologic: grossly normal - PSYCHIATRIC Psych/Mental Status: normal mood/affect, normal thought content, normal thought process, oriented x 3 <Adonis Arreaga - Last Filed: 07/25/19 20:56> Progress - PLAN OF CARE/RESULTS Result Diagrams: 07/25/19 18:35 07/25/19 18:35 - REASSESSMENT Reassessment #1 Time Reassessed: 19:01 Status: unchanged (resting in bed) Reassessment #2 Time Reassessed: 20:36 Status: worsening (bp 81/47) - XRAY 1 XRAY: Bilateral XRAY Study: Chest Impression: See EMR Report ( IMPRESSION: Very low lung volumes and possible cardiomegaly. Electronically signed by Ru Castillo 07/25/2019 7:13 PM) <Adonis Arreaga - Last Filed: 07/25/19 20:56> - PLAN OF CARE/RESULTS Progress/Plan/Lab Results: Vital Signs - 8 hr 07/25/19 17:26 07/25/19 17:37 07/25/19 19:31 Temperature 98.5 F 102.1 F H Pulse Rate 101 H 105 H 96 H Respiratory Rate 27 H 33 H 30 H Blood Pressure 133/75 131/74 121/72 O2 Sat by Pulse Oximetry 100 96 Laboratory Results - last 24 hr 07/25/19 07/25/19 07/25/19 18:30 18:35 18:35 WBC RBC Hgb Hct MCV MCH MCHC RDW Std Deviation Plt Count MPV Immature Gran % (Auto) Neut % (Auto) Lymph % (Auto) [place] % (Auto) Eos % (Auto) Baso % (Auto) Immature Gran # (Auto) Neut # (Auto) Lymph # (Auto) [place] # (Auto) Eos # (Auto) Baso # (Auto) Specimen Type ARTERIAL Sample Site R RADIAL pH 7.48 H pCO2 35 pO2 96 HCO3 27.1 H Base Excess 2.8 Oxyhemoglobin 95.6 ABG O2 Sat (Calculated) 18.0 ABG O2 Saturation 99.5 ABG Carboxyhemoglobin 2.40 ABG Methemoglobin 1.5 [place] Test YES A-a O2 Difference 88.0 Total Hemoglobin 13.3 Lactate 1.90 Liter Flow 4.0 Blood Gas Modality CANNULA FiO2 % 36.0 Sodium 127 L Potassium 6.2 H* Chloride 93 L Carbon Dioxide 22 L Anion Gap 13 BUN 15 Creatinine 1.0 Estimated GFR/1.73 m2 > 60 BUN/Creatinine Ratio 15 Glucose 114 H Calculated Osmolality 257 Calcium 8.5 L Magnesium 1.8 Total Bilirubin 0.90 AST 23 ALT < 5 L Alkaline Phosphatase 95 Troponin T High Sens Dis-S-Cxdejckfeui Pept Total Protein 6.7 Albumin 4.0 Globulin 3.0 Albumin/Globulin Ratio 1.0 Plasma Lactate Influenza A (Rapid) Influenza B (Rapid) Group A Strep Rapid 07/25/19 07/25/19 07/25/19 18:35 18:35 18:35 WBC RBC Hgb Hct MCV MCH MCHC RDW Std Deviation Plt Count MPV Immature Gran % (Auto) Neut % (Auto) Lymph % (Auto) [place] % (Auto) Eos % (Auto) Baso % (Auto) Immature Gran # (Auto) Neut # (Auto) Lymph # (Auto) [place] # (Auto) Eos # (Auto) Baso # (Auto) Specimen Type Sample Site pH pCO2 pO2 HCO3 Base Excess Oxyhemoglobin ABG O2 Sat (Calculated) ABG O2 Saturation ABG Carboxyhemoglobin ABG Methemoglobin [place] Test A-a O2 Difference Total Hemoglobin Lactate Liter Flow Blood Gas Modality FiO2 % Sodium Potassium Chloride Carbon Dioxide Anion Gap BUN Creatinine Estimated GFR/1.73 m2 BUN/Creatinine Ratio Glucose Calculated Osmolality Calcium Magnesium Total Bilirubin AST ALT Alkaline Phosphatase Troponin T High Sens 15 Hhd-G-Oizxborsnoa Pept 707 H Total Protein Albumin Globulin Albumin/Globulin Ratio Plasma Lactate 1.5 Influenza A (Rapid) Influenza B (Rapid) Group A Strep Rapid 07/25/19 07/25/19 07/25/19 18:35 19:50 19:50 WBC 20.40 H RBC 4.10 L Hgb 11.9 L Hct 37.3 L MCV 91.0 MCH 29.0 MCHC 31.9 L RDW Std Deviation 13.8 Plt Count 263 MPV 9.2 Immature Gran % (Auto) 0.2 Neut % (Auto) 92.2 H Lymph % (Auto) 2.9 L [place] % (Auto) 4.6 Eos % (Auto) 0.0 Baso % (Auto) 0.1 Immature Gran # (Auto) 0.05 H Neut # (Auto) 18.80 H Lymph # (Auto) 0.60 L [place] # (Auto) 0.93 H Eos # (Auto) 0.00 Baso # (Auto) 0.02 Specimen Type Sample Site pH pCO2 pO2 HCO3 Base Excess Oxyhemoglobin ABG O2 Sat (Calculated) ABG O2 Saturation ABG Carboxyhemoglobin ABG Methemoglobin [place] Test A-a O2 Difference Total Hemoglobin Lactate Liter Flow Blood Gas Modality FiO2 % Sodium Potassium Chloride Carbon Dioxide Anion Gap BUN Creatinine Estimated GFR/1.73 m2 BUN/Creatinine Ratio Glucose Calculated Osmolality Calcium Magnesium Total Bilirubin AST ALT Alkaline Phosphatase Troponin T High Sens [id number] Pept Total Protein Albumin Globulin Albumin/Globulin Ratio Plasma Lactate Influenza A (Rapid) NEGATIVE Influenza B (Rapid) NEGATIVE Group A Strep Rapid NEGATIVE Orders Category Date Time Status Cardiac Monitoring DIRECTED Care 07/25/19 17:34 Active Cooper Cath Insertion ORDERED Care 07/25/19 17:41 Active NEWS Score >or=5:Order NEWS Bundle S.O. NOW Care 07/25/19 17:39 Active Saline Loc NOW Care 07/25/19 17:34 Active CHEST-PORTABLE [RAD] Stat Exams 07/25/19 17:35 Completed ABG [RESP] Routine Lab 07/25/19 18:30 Completed BLOOD CULTURE [BLDCUL] Stat Lab 07/25/19 17:34 Ordered CBC WITH ELECTRONIC DIFF [HEME] Stat Lab 07/25/19 18:35 Completed COMPREHENSIVE METABOLIC PANEL [CHEM] Stat Lab 07/25/19 18:[address] Stat Lab 07/25/19 19:[address] Stat Lab 07/25/19 19:50 Completed LACTATE, PLASMA [CHEM] Stat Lab 07/25/19 18:35 Completed MAGNESIUM [CHEM] Stat Lab 07/25/19 18:35 Completed PRO B-NATRIURETIC PEPTIDE Stat Lab 07/25/19 18:35 Completed PROTIME WITH INR [COAG] Stat Lab 07/25/19 21:02 Received PTT [COAG] Stat Lab 07/25/19 21:02 Received TROPONIN T HIGH SENSITIVITY Stat Lab 07/25/19 18:35 Completed URINALYSIS W/POSS RFLX CULT [URINALYSIS] Stat Lab 07/25/19 17:35 Ordered 0.9% Sodium Chloride Inj [Ns] 500 ml Med 07/25/19 20:57 Discontinued IV Wide Open mls/hr Acetaminophen [Tylenol] Med 07/25/19 17:41 Discontinued 650 mg PO NOW ONE Furosemide [Lasix] Med 07/25/19 17:37 Discontinued 80 mg IV NOW ONE Piperacillin/Tazobactam [Zosyn] 4.5 gm Med 07/25/19 17:37 Discontinued 0.9% Sodium Chloride Inj [Ns] 100 ml IV NOW Vancomycin 1 gm/Ns Med 07/25/19 17:37 Discontinued 1 gm in 250 ml IV NOW EKG [EKG] Stat Ther 07/25/19 17:34 Draft Result Diagrams: 07/25/19 18:35 07/25/19 18:35 <Damian Salgado - Last Filed: 07/26/19 01:23> Departure - Critical Care Note This patient required my direct & personal management of CC.: No <Adonis Arreaga - Last Filed: 07/25/19 20:56> - Departure Date of Disposition Decision: 07/26/19 Time of Disposition Decision: 01:22 Certified Medical Emergency: Emergent <Damian Salgado - Last Filed: 07/26/19 01:23> - Departure DIAGNOSIS: CHF (congestive heart failure), NYHA class IV, Pneumonia Disposition: ADMITTED INPATIENT 09 Condition: Stable Attestation - Physician/ CRISTY Attestation Patient care was provided by Advanced Practice Provider:: No The physician spent face to face time with patient:: Yes Advanced Practice Provider documentation review:: Supervising physician onsite and consulted in the evaluation and care of this patient. The physician did have a face to face encounter with the patient. <Adonis Arreaga - Last Filed: 07/25/19 20:56> - Physician/ CRISTY Attestation The physician spent face to face time with patient:: Yes Advanced Practice Provider documentation review:: Supervising physician onsite and consulted in the evaluation and care of this patient. The physician did have a face to face encounter with the patient. <Damian Salgado - Last Filed: 07/26/19 01:23> This chart was documented by the indicated scribe, (Jamilah Ham Scribe) and accurately reflects the services I performed and decisions made by me, Adonis Arreaga MD, as attested by the provider's signature.
[2019-07-25 19:04] LABS: ESTIMATED GFR > 60
--- NOTE | 2019-07-25 19:15 | Diag Imaging Result Doc PS360 ---
EXAM: CHEST-PORTABLE INDICATION: SOB,TACHYPNEA TECHNIQUE: One view COMPARISON: 12/15/2016 FINDINGS: Lung volumes are very low. This is causing central vascular crowding. There is suggestion of mild atelectasis at the lung bases. Cardiac silhouette is somewhat prominent, likely due to magnification from AP technique. IMPRESSION: Very low lung volumes and possible cardiomegaly. Electronically signed by Ru Castillo 07/25/2019 7:13 PM
[2019-07-25 19:22] LABS: AGAP 13; ALKALINE PHOSPHATASE 95 U/L (32-122); BUN 15 mg/dL (8-22); CALCIUM 8.5 mg/dL (8.8-10.2); CHLORIDE 93 mmol/L (98-107); COSMO 257; GLUCOSE 114 mg/dL (70-104); GOT 23 U/L (10-34); GPT < 5 U/L (10-44); SODIUM 127 mmol/L (136-145); TCO2 22 mmol/L (25-35); TOTAL PROTEIN 6.7 g/dL (6.3-8.3)
[2019-07-25 19:26] LABS: POTASSIUM 6.2 mmol/L (3.5-5.1)
[2019-07-25 19:29] LABS: BASO# 0.02 X1000 (0.0-0.2); BASO% 0.1 % (0.0-0.8); HEMATOCRIT 37.3 % (42.0-52.0); HEMOGLOBIN 11.9 g/dL (14.0-18.0); IMM GRAN# 0.05 X1000 (0.0-0.04); IMM GRAN% 0.2 % (0.0-0.5); LYMPH% 2.9 % (20.5-51.1); MCHC 31.9 g/dL (33-37); MONO# 0.93 X1000 (0.11-0.59); MONO% 4.6 % (1.7-9.3); MPV 9.2 FL (7.4-10.4); NEUT% 92.2 % (42.2-75.2); PLT 263 X1000 (130-400); RDW 13.8 % (11.5-14.5)
[2019-07-25 20:40] LABS: INFLUENZA A NEGATIVE (NEGATIVE); INFLUENZA B NEGATIVE (NEGATIVE)
[2019-07-25] MEDS ORDERED: NS 500 ML IV ONE (20:57)
--- NOTE | 2019-07-25 21:02 | EKG Report ---
Test Performed on : 07/25/2019 7:30:43 PM Test Reason : FEVER,COUGH,SOB Blood Pressure : / mmHG Vent. Rate : 097 BPM Atrial Rate : 097 BPM P-R Int : 176 ms QRS Dur : 100 ms QT Int : 342 ms P-R-T Axes : -15 -44 006 degrees QTc Int : 434 ms Normal sinus rhythm. Left axis deviation Incomplete right bundle branch block Abnormal ECG When compared with ECG of 16-DEC-2016 00:34, No significant change was found Unconfirmed Result
[2019-07-25] MEDS ORDERED: KAYEXALATE PO ONE (21:27)
[2019-07-25] MEDS ORDERED: VANCOMYCIN IV PER PHARMACY MISC SCH (21:30)
[2019-07-25 21:31] LABS: INR 1.06; PROTIME 14.3 Seconds (11.0-16.0); PTT 22.9 Seconds (22.3-41.8)
[2019-07-26] MEDS: ZOSYN 3.375 GM in NS 50 ML IV SCH ×4 (00:05→18:30)
[2019-07-26] MEDS ORDERED: NS 50 ML ONE (00:09)
[2019-07-26] MEDS ORDERED: PNEUMOVAX 23 IM ONE (00:43)
[2019-07-26] MEDS ORDERED: VANCOMYCIN 1 GM/NS 1 GM/250 ML IVPB IV ONE (01:00)
[2019-07-26] MEDS ORDERED: VANCOMYCIN 500 MG/NS 500 MG/100 ML IVPB IV ONE (02:00)
[2019-07-26 02:26] LABS: URINE SOURCE CATH
[2019-07-26 02:36] LABS: BILIRUBIN URINE NEGATIVE (NEGATIVE); BLOOD URINE MODERATE (NEGATIVE); COLOR YELLOW; GLUCOSE URINE NEGATIVE (NEGATIVE); KETONE URINE NEGATIVE (NEGATIVE); LEUKOCYTES URINE NEGATIVE (NEGATIVE); NITRITE URINE NEGATIVE (NEGATIVE); PROTEIN URINE TRACE mg/dL (NEGATIVE); SP GRAVITY URINE 1.014; TURBIDITY URINE CLEAR (CLEAR); UROBILINOGEN URINE NORMAL (NORMAL)
[2019-07-26 02:37] LABS: UR EPITHELIAL CELLS <10 /HPF (<10); URINE BACTERIA NEGATIVE /HPF; URINE RBC <10 /HPF (<10); URINE WBC <10 /HPF (<10)
[2019-07-26] MEDS ORDERED: TYLENOL PO PRN (07:09)
[2019-07-26] MEDS ORDERED: ZOFRAN IV PRN (07:09)
[2019-07-26 08:01] LABS: HEMATOCRIT 34.9 % (42.0-52.0); HEMOGLOBIN 10.9 g/dL (14.0-18.0); MCH 28.7 PG (27-31); MCHC 31.2 g/dL (33-37); MCV 91.8 FL (81-99); MPV 8.8 FL (7.4-10.4); RBC 3.8 XMIL (4.7-6.1); RDW 14.2 % (11.5-14.5); WBC 16.77 X1000 (4.8-10.8)
[2019-07-26 08:47] LABS: FREE T4 1.16 ng/dL (0.93-1.70); TSH 3.66 uIUmL (0.27-4.20)
[2019-07-26 08:48] LABS: ALBUMIN 3.2 g/dL (3.5-5.0); CREATININE 1.3 mg/dL (0.7-1.2); MAGNESIUM 1.8 mg/dL (1.5-2.7); POTASSIUM 4.9 mmol/L (3.5-5.1); TOTAL BILIRUBIN 1.3 mg/dL (0.20-1.00); TOTAL PROTEIN 6.4 g/dL (6.3-8.3)
[2019-07-26] MEDS: LASIX IV SCH ×2 (09:35→18:30)
[2019-07-26] MEDS ORDERED: VANCOMYCIN 1,800 MG in NS 500 ML IV SCH (22:00)
[2019-07-26] MEDS ORDERED: CARDIZEM IV STA (22:18)
[2019-07-26] MEDS ORDERED: CARDIZEM ONE (22:20)
[2019-07-26] MEDS ORDERED: NS 1,000 ML ONE (22:23)
--- NOTE | 2019-07-26 22:56 | EKG Report ---
Test Performed on : 07/26/2019 10:12:11 PM Test Reason : SVT Blood Pressure : / mmHG Vent. Rate : 214 BPM Atrial Rate : 214 BPM P-R Int : 000 ms QRS Dur : 104 ms QT Int : 202 ms P-R-T Axes : 000 -48 130 degrees QTc Int : 381 ms Supraventricular tachycardia. Left axis deviation Incomplete right bundle branch block Marked ST abnormality, possible anterolateral subendocardial injury Abnormal ECG No previous ECGs available Confirmed by Damian Salgado MD ([id number]) on 07/29/2019 9:22:31 AM
--- NOTE | 2019-07-26 22:56 | EKG Report ---
Test Performed on : 07/26/2019 10:25:36 PM Test Reason : SVT Blood Pressure : / mmHG Vent. Rate : 138 BPM Atrial Rate : 150 BPM P-R Int : 000 ms QRS Dur : 106 ms QT Int : 294 ms P-R-T Axes : 000 -37 058 degrees QTc Int : 445 ms Atrial fibrillation. with rapid ventricular response. with premature ventricular or aberrantly conduc will complexes. Left axis deviation Incomplete right bundle branch block ST & T wave abnormality, consider anterior ischemia Abnormal ECG When compared with ECG of 26-JUL-2019 22:12, (Unconfirmed) Significant changes have occurred Confirmed by Damian Salgado MD ([id number]) on 07/29/2019 9:22:21 AM
[2019-07-26] MEDS ORDERED: CARDIZEM 100 MG/NS 100 MG/100 ML IVPB IV SCH (23:45)
[2019-07-26] MEDS ORDERED: CARDIZEM IV ONE (23:56)
[2019-07-27] MEDS ORDERED: CARDIZEM 100 MG/NS 100 MG/100 ML IVPB ONE (00:13)
[2019-07-27] MEDS: TYLENOL LIQUID PO PRN (00:14)
[2019-07-27] MEDS ORDERED: ZOFRAN IV PRN (00:18)
[2019-07-27] MEDS: ZOSYN 3.375 GM in NS 50 ML IV SCH ×5 (00:44→18:41)
[2019-07-27 02:12] LABS: CK INDEX 0.5 (0.0-2.5); CK-MB 3.65 ng/mL (0.0-5.0)
[2019-07-27 02:55] LABS: BASO# 0.01 X1000 (0.0-0.2); BASO% 0.1 % (0.0-0.8); HEMATOCRIT 33.7 % (42.0-52.0); HEMOGLOBIN 10.8 g/dL (14.0-18.0); IMM GRAN# 0.03 X1000 (0.0-0.04); IMM GRAN% 0.3 % (0.0-0.5); LYMPH# 0.58 X1000 (1.2-3.4); LYMPH% 4.8 % (20.5-51.1); MCH 29.2 PG (27-31); MCV 91.1 FL (81-99); MONO# 0.62 X1000 (0.11-0.59); MONO% 5.2 % (1.7-9.3); MPV 9.1 FL (7.4-10.4); NEUT# 10.76 X1000 (1.4-6.5); NEUT% 89.6 % (42.2-75.2); PLT 221 X1000 (130-400); RDW 14.1 % (11.5-14.5)
[2019-07-27 02:56] LABS: INR 1.22; PROTIME 15.6 Seconds (11.0-16.0)
[2019-07-27 03:13] LABS: PTT 35.7 Seconds (22.3-41.8)
[2019-07-27 03:30] LABS: URINE SOURCE CATH
[2019-07-27 03:48] LABS: BILIRUBIN URINE NEGATIVE (NEGATIVE); BLOOD URINE LARGE (NEGATIVE); COLOR YELLOW; GLUCOSE URINE NEGATIVE (NEGATIVE); KETONE URINE TRACE mg/dL (NEGATIVE); PROTEIN URINE 100 mg/dL (NEGATIVE); TURBIDITY URINE CLEAR (CLEAR); UR EPITHELIAL CELLS <10 /HPF (<10); URINE BACTERIA NEGATIVE /HPF; URINE CASTS NONE SEEN; URINE CRYSTALS NONE SEEN; URINE RBC 20-40 /HPF (<10); URINE SMALL ROUND CELLS NONE SEEN; URINE WBC <10 /HPF (<10); URINE YEAST NONE SEEN; UROBILINOGEN URINE NORMAL (NORMAL)
[2019-07-27 03:49] LABS: LEUKOCYTES URINE NEGATIVE (NEGATIVE); NITRITE URINE NEGATIVE (NEGATIVE)
[2019-07-27 04:01] LABS: LYMPHS 8 % (21-51); MONO 4 % (1-9); SEGS 84 % (42-75)
[2019-07-27 04:10] LABS: AGAP 14; ALB/GLOB RATIO 1.1; ALKALINE PHOSPHATASE 70 U/L (32-122); BUN 21 mg/dL (8-22); CALCIUM 7.9 mg/dL (8.8-10.2); CHLORIDE 90 mmol/L (98-107); COSMO 265; CREATININE 1.1 mg/dL (0.7-1.2); ESTIMATED GFR > 60; GLUCOSE 147 mg/dL (70-104); GOT 24 U/L (10-34); GPT 12 U/L (10-44); POTASSIUM 3.4 mmol/L (3.5-5.1); SODIUM 129 mmol/L (136-145); TCO2 25 mmol/L (25-35); TOTAL BILIRUBIN 0.92 mg/dL (0.20-1.00); TOTAL PROTEIN 5.8 g/dL (6.3-8.3)
--- NOTE | 2019-07-27 04:34 | HISTORY AND PHYSICAL ---
CHIEF COMPLAINT: Shortness of breath. HISTORY OF PRESENT ILLNESS: Patient is an 79-year-old male who presented to the hospital via ambulance. [facility] at a [facility]. They noted that he had fever, shortness of breath, lower extremity edema, abdominal edema, body aches and coughing for 4 days that has not improved. ALLERGIES: No known drug allergies. MEDICATIONS: Aspirin, carbidopa, Sinemet 25/100, Depakote 500, Cymbalta 60, Lasix 20, gabapentin 600 t.i.d., Linzess 145, metoprolol 50, Remeron 7.5, Flomax. REVIEW OF SYSTEMS: He has reported history of fevers, chills, cough, congestion, shortness of breath, increased lower extremity edema. Denies any wheezing. Denies dysuria, urinary frequency, constipation, melena, hematochezia. PAST MEDICAL HISTORY: History of SVT, hypertension, Parkinson's, history of appendectomy, hernia repair. SOCIAL HISTORY: He lives in a [facility] facility. Does not smoke or drink. FAMILY HISTORY: Noncontributory. PHYSICAL EXAMINATION: VITAL SIGNS: Reviewed. He is afebrile. Blood pressure stable. Temperature 98 degrees, pulse 101, respiratory 27. GENERAL: Patient is awake, cachectic-appearing male. HEENT: Normocephalic. NECK: Supple. CARDIOVASCULAR: Mild tachycardia. CHEST: Tachypneic but otherwise clear. Decreased breath sounds. ABDOMEN: Soft, slightly distended. No guarding. No rebound. Nonrigid. EXTREMITIES: Moves all extremities. He has swelling bilaterally. He has an abrasion noted right anterior knee with some erythema of his left knee secondary to his recent fall. ASSESSMENT: 1. Hyperkalemia. 2. Leukocytosis. 3. Very low lung volumes on his chest x-ray. 4. Congestive heart failure exacerbation. 5. Presumed pneumonia. PLAN: We are going to treat his potassium, place him on Lasix, antibiotics, breathing treatments, oxygen and we will follow. cc: Daljit Arguello MD
[2019-07-27] MEDS ORDERED: LASIX IV SCH (07:00)
[2019-07-27 07:07] LABS: CK INDEX 0.6 (0.0-2.5); CK-MB 3.38 ng/mL (0.0-5.0)
--- NOTE | 2019-07-27 07:26 | Diag Imaging Result Doc PS360 ---
EXAM: CHEST-1 VIEW HISTORY: NEWS bundle TECHNIQUE: Single view COMPARISON: 07/25/2019 FINDINGS: Poor inspiratory effort. Heart is mildly prominent. There are central vascular distention similar to the prior exam. There are underlying infiltrates in the left base with a small left effusion. IMPRESSION: Stable chest Electronically signed by Joseluis Connors 07/27/2019 7:23 AM
[2019-07-27] MEDS ORDERED: POTASSIUM CHLORIDE 20% LIQUID PO ONE (10:30)
--- NOTE | 2019-07-27 10:56 | CARDIOLOGY CONSULTATION ---
DATE: 07/27/2019 REASON FOR CONSULTATION: Cardiology was consulted for atrial fibrillation. HISTORY OF PRESENT ILLNESS: Patient was admitted with pneumonia. An 79-year-old gentleman who presented to the hospital. He is at a half-way home facility and was noted to have fever, shortness of breath, lower extremity edema, and cough for 4 days. The patient was noted to be in atrial fibrillation, started on a Cardizem drip, transferred to [facility] from [place]. Patient was converted to sinus rhythm with PACs. Cardizem drip was discontinued. The patient is a poor historian. History was also obtained from the chart. At the present time, does not complain of any chest pain or palpitations. Denies chest pain suggestive of angina. PAST MEDICAL HISTORY: 1. History of SVT. 2. Hypertension. 3. Parkinson disease. 4. Appendectomy. 5. Hernia repair. HOME MEDICATIONS: Aspirin, carbidopa, Sinemet, Depakote, Cymbalta, Lasix, gabapentin, Linzess, metoprolol 50. SOCIAL HISTORY: He lives in a half-way facility and does not smoke or drink. FAMILY HISTORY: Noncontributory. PHYSICAL EXAMINATION: Vital signs: Blood pressure was 100/56. Cardiovascular: First and second heart sounds were heard. There was no S3 gallop. Respiratory System: Distant breath sounds. A few scattered wheeze. Abdomen: Soft, nontender. Central nervous system: Alert, was moving extremities. Detailed central nervous system examination not performed. Neck: Jugular venous pressure was normal. No obvious lymphadenopathy. HEENT: Atraumatic. Pupils reacting to light. LABORATORY EXAMINATION: 1. Sodium 129, potassium 3.4, BUN 21, creatinine 1.1. 2. WBC 20.40 on 07/24, today 12.0, hemoglobin 11.9, hematocrit 37.3, platelet count of 221,000. 3. Patient is going to have a CT scan of his chest. 4. Troponin T was negative. ASSESSMENT AND PLAN: 1. Mr. Ryan Wise is an 79-year-old, gentleman with history of Parkinson's, supraventricular tachycardia, hypertension, is a resident at the half-way home facility, is admitted with fevers and cough. Patient has elevated white count and has pneumonia, is going to undergo a CT scan to assess for the same shortly. He is on antibiotics. From a cardiac standpoint, he had history of SVT in the past and had atrial fibrillation with rapid ventricular rate, was started on Cardizem drip, is currently in sinus rhythm. I will discontinue the beta- blockers, put him on Cardizem CD 180 mg a day. His atrial fibrillation could have been triggered with the electrolyte imbalance as well as pneumonia. In the past, he had history of SVT as well. 2. He needs to be anticoagulated, will start him on Eliquis 5 mg twice daily. 3. I will get an echocardiogram to assess cardiac and valvular function. 4. We will check lab work in the morning. He is hyponatremic and has hypokalemia, which will be repleted. Thank you for the consult. We will follow hospital course. cc: Av Beaulieu MD
--- NOTE | 2019-07-27 11:04 | Diag Imaging Result Doc PS360 ---
EXAM: CT THORAX W/O CONTRAST 07/27/2019 HISTORY: ? pneumonia. ? CHF. cough, dyspnea. TECHNIQUE: This exam was performed using automated exposure control, adjustment of mA or kV according to patient size, and/or use of iterative reconstruction technique. COMMENT: There is beam hardening artifact. There are some ill-defined opacities in the lung bases particularly in the posterior costophrenic sulci of the lower lobes which may indicate interstitial edema or fibrosis. There are no previous studies available for comparison. There are coronary calcifications. There are some calcified nodes in the left hilum. There is no evidence of acute bony abnormality. There is ankylosis of the mid and distal thoracic spine presumably due to DISH. IMPRESSION: Bibasilar interstitial edema and/or fibrosis. Otherwise no evidence of acute disease. Electronically signed by Joseph Durand 07/27/2019 11:01 AM
[2019-07-27] MEDS: ASPIRIN EC PO SCH (11:06)
[2019-07-27] MEDS: CARDIZEM CD PO SCH (11:06)
[2019-07-27] MEDS: FLOMAX PO SCH (11:07)
[2019-07-27] MEDS: CYMBALTA PO SCH (11:07)
[2019-07-27 13:09] LABS: CK INDEX 0.8 (0.0-2.5); CK-MB 3.97 ng/mL (0.0-5.0)
[2019-07-27] MEDS: NEURONTIN PO SCH ×2 (13:41→16:18)
--- NOTE | 2019-07-27 14:25 | PROGRESS NOTE ---
DATE: 07/27/2019 BRIEF PROGRESS NOTE: Patient admitted with fever, dyspnea, low- normal oxygenation. Chest x-ray did not really show much but pneumonia and possibly some aspect of heart failure was favored. The patient then went into atrial fibrillation with RVR and was transferred over here. Heart rate is now controlled. His current rhythm appears to be largely sinus rhythm with some PACs. He remains on diltiazem. Cardiology consulted. A CT obtained given 2 chest x-rays not showing a whole lot. The CT was read as bibasilar interstitial edema, but patient has some mild rales of the left lower lobe on exam, and he really looks like he has some left basilar pneumonia to me. He is on antibiotics with vancomycin and Zosyn, which we will continue for now and monitor. If he improves with that, then further investigation may not be needed. If patient fails to improve with antibiotics and conservative management, then some other testing may have to be done. He does have some lower extremity edema, but given the lack of significant fluid on CT, will hold off on additional diuresis for now. Monitor electrolytes. [facility]
[2019-07-27] MEDS: VANCOMYCIN 1,800 MG in NS 500 ML IV SCH (15:42)
[2019-07-27] MEDS ORDERED: LOPRESSOR IV PRN (16:13)
[2019-07-27] MEDS ORDERED: LOPRESSOR IV SCH (16:30)
--- NOTE | 2019-07-27 16:49 | ECHO REPORT ---
ORDER DATE: 07/27/2019 INTERPRETING PHYSICIAN: Dr. Zamudio REQUESTING PHYSICIAN: CLINICAL INDICATIONS: An 79-year-old male with CHF, fever, cough. M-MODE MEASUREMENTS: Right ventricle: cm. Left ventricle end diastole: 5.0 cm. Left ventricle end systole: 3.6 cm. Posterior wall: 1.2 cm. Interventricular septum: 1.2 cm. Left atrium: 4.4 cm. Aortic root: 4.2 cm. SUMMARY OF 2-DIMENSIONAL IMAGIN. The study was difficult. Optison was added. 2. Left ventricular systolic function appears to be normal at 55%. 3. Frequent PACs are noted which made estimation of ejection fraction difficult. 4. Aortic valve appears to be grossly normal. Color flow mapping is unremarkable. 5. Mitral valve looks grossly normal. Color flow mapping is unremarkable. 6. Pulse wave Doppler of mitral inflow shows "normal" E/A ratio. 7. Tissue Doppler of septal and lateral mitral annulus averages 7 cm. 8. There is no diastolic dysfunction. 9. Tricuspid valve is suboptimally visualized. 10.Pulmonary pressure cannot be calculated in this case. 11.Pulmonic valve is not well appreciated in this study. Doppler pattern appears to be unremarkable. 12.There is no pericardial effusion, mass or thrombus. 13.The chambers do not appear to be dilated. Clinical correlation is recommended. cc: Ghassan Zamudio MD
[2019-07-27] MEDS: SINEMET 25/100 PO SCH (21:45)
[2019-07-27] MEDS: NAMENDA PO SCH (21:45)
[2019-07-27] MEDS: ELIQUIS PO SCH (21:45)
[2019-07-27] MEDS: DEPAKOTE ER PO SCH (21:45)
[2019-07-28] MEDS: ZOSYN 3.375 GM in NS 50 ML IV SCH ×4 (02:15→18:17)
[2019-07-28 06:11] LABS: BASO# 0.02 X1000 (0.0-0.2); BASO% 0.3 % (0.0-0.8); EOS# 0.12 X1000 (0.0-0.7); EOS% 1.9 % (0.0-10.0); HEMATOCRIT 35.6 % (42.0-52.0); HEMOGLOBIN 11.2 g/dL (14.0-18.0); IMM GRAN# 0.02 X1000 (0.0-0.04); IMM GRAN% 0.3 % (0.0-0.5); LYMPH# 1.21 X1000 (1.2-3.4); LYMPH% 19.1 % (20.5-51.1); MCH 28.6 PG (27-31); MCHC 31.5 g/dL (33-37); MCV 90.8 FL (81-99); MONO# 0.52 X1000 (0.11-0.59); MONO% 8.2 % (1.7-9.3); MPV 9.1 FL (7.4-10.4); NEUT# 4.43 X1000 (1.4-6.5); NEUT% 70.2 % (42.2-75.2); PLT 204 X1000 (130-400); RBC 3.92 XMIL (4.7-6.1); RDW 13.9 % (11.5-14.5); WBC 6.32 X1000 (4.8-10.8)
[2019-07-28 06:39] LABS: AGAP 11; BUN 18 mg/dL (8-22); CALCIUM 8.4 mg/dL (8.8-10.2); CHLORIDE 91 mmol/L (98-107); COSMO 260; CREATININE 0.9 mg/dL (0.7-1.2); ESTIMATED GFR > 60; GLUCOSE 86 mg/dL (70-104); MAGNESIUM 1.8 mg/dL (1.5-2.7); POTASSIUM 3.6 mmol/L (3.5-5.1); SODIUM 129 mmol/L (136-145); TCO2 27 mmol/L (25-35)
[2019-07-28] MEDS: NEURONTIN PO SCH ×3 (08:59→17:31)
[2019-07-28] MEDS: ASPIRIN EC PO SCH (08:59)
[2019-07-28] MEDS: CARDIZEM CD PO SCH (09:00)
[2019-07-28] MEDS: CYMBALTA PO SCH (09:00)
[2019-07-28] MEDS: ELIQUIS PO SCH ×2 (09:00→21:11)
[2019-07-28] MEDS: SINEMET 25/100 PO SCH ×4 (09:00→21:11)
[2019-07-28] MEDS: FLOMAX PO SCH (09:00)
[2019-07-28] MEDS: VANCOMYCIN 1,800 MG in NS 500 ML IV SCH (10:00)
[2019-07-28] MEDS ORDERED: LASIX IV ONE ×2 (10:01→12:45)
--- NOTE | 2019-07-28 13:26 | PROGRESS NOTE ---
DATE: 07/28/2019 SUBJECTIVE: Patient continues without chest discomfort or shortness of breath on supplemental oxygen. He has considerable tremor related to his Parkinson's disease. He appears to have gone back into sinus rhythm. OBJECTIVE: Blood pressure 120/59, heart rate 87 with ECG monitor showing sinus rhythm with supraventricular ectopy. Oxygen saturation 97% on nasal cannula oxygen at 2 L/minute.Neck: Jugular venous distention cannot be appreciated. Chest: Auscultation of the chest reveals coarse breath sounds bilaterally. Cardiac Exam: Reveals a regular rate and rhythm without appreciable murmur or gallop. Extremities: Without edema. LABORATORY DATA: Includes a white blood cell count 6.32, hematocrit 35.6, hemoglobin 11.2, platelet count 204,000. Sodium 129 potassium 3.6, chloride 91, carbon dioxide 27, BUN 18, creatinine 0.9. Glucose 86. IMPRESSION: 1. Transient atrial fibrillation in the setting of acute respiratory illness. Patient now appears to be back in sinus rhythm. 2. Suspected pneumonia. 3. Parkinson's disease with significant debility. Patient resides in a group home. 4. Hypertension. RECOMMENDATIONS: 1. Continue current Cardizem. 2. Continue to monitor cardiac rhythm. 3. Continue supportive care and treatment of pneumonia as you are doing. cc: Robbie De La O MD
--- NOTE | 2019-07-28 15:10 | PROGRESS NOTE ---
DATE: 07/28/2019 INTERVAL HISTORY: The patient remains in largely sinus rhythm with frequent PACs and PVCs. Denies dyspnea, chest pain, or significant cough currently. Still with a pretty good tremor which is chronic and worse on the right. REVIEW OF SYSTEMS: Twelve-point review of systems negative except as per interval history. LABS: WBC 6.3, hemoglobin 11.2, hematocrit 35.6, platelets 204,000. Sodium 129, potassium 3.6, BUN 18, creatinine 0.9, glucose 86 . VITALS: T-max 98.9 degrees, pulse 87, respirations 20, blood pressure 120/59, O2 saturation 98% on 3 L by nasal cannula. PHYSICAL EXAMINATION: General: In no acute distress. Chronically ill appearing. Vitals: As above. HEENT: Normocephalic, atraumatic. Moist mucous membranes. No cervical adenopathy. Cardiovascular: Largely regular with occasional extra dropped beat. No murmurs noted. Pulmonary: Still with bibasilar rales, left greater than right. Upper lungs clear to auscultation. No wheezing. Extremities: Peripheral pulses intact. No clubbing or cyanosis. Lower extremity edema somewhat worse than yesterday, 2 to 3+. Neurologic: The patient is somewhat hard of hearing. Tremor noted, primarily on the right. No clear focal deficits. Psychiatric: The patient with flat affect, but normal mood. Awake, alert, cooperative. Speech is slow but appropriate. ASSESSMENT AND PLAN: 1. Fever and dyspnea, likely pneumonia. The patient presented with fever, dyspnea, borderline low oxygen saturations. Imaging most consistent with pneumonia. May have some aspect of diastolic congestive heart failure as well. Leukocytosis was significantly elevated on admission but has now normalized with a couple days of antibiotics. Currently on vancomycin and Zosyn which we will continue for now. Hopefully, he will be able to go back [facility] or Tuesday. 2. Atrial fibrillation with rapid ventricular response. Shortly after admission patient went into atrial fibrillation with rapid ventricular response. He has now converted back to largely sinus rhythm, although he continues to have pretty frequent PACs and PVCs. Cardiology following. Patient currently on Eliquis and diltiazem. 3. Lower extremity edema, likely acute on chronic diastolic congestive heart failure. The patient does not appear to have a lot of fluid on his chest CT, but definitely has worsened lower extremity edema. May have some aspect of venous stasis, but reportedly has a history of some level of diastolic congestive heart failure. We will go ahead and give him a dose of Lasix and see if that improves his edema. 4. Hyperkalemia and hypokalemia. The patient's initial potassium was elevated, but that resolved rapidly. Subsequently, it dropped low and had to be repleted. Now on the low end of normal. We will keep an eye on that. Suspect we will have to give him more before he leaves the hospital. 5. Elevated creatinine. Patient with mildly elevated creatinine just after admission, but that has resolved. We will monitor in the setting of diuresis. 6. Benign prostatic hypertrophy. Continue home tamsulosin. 7. Parkinson's. Continue home Sinemet, gabapentin, Depakote, and Cymbalta. 8. Hyponatremia. Fairly mild and pretty stable. We will monitor but no need for acute intervention at this time. GRANT
[2019-07-28] MEDS ORDERED: CITRATE OF MAGNESIA PO ONE (17:56)
--- NOTE | 2019-07-28 18:17 | Diag Imaging Result Doc PS360 ---
EXAM: KUB ABDOMEN HISTORY: probably constipation. vs ileus. TECHNIQUE: Two views COMPARISON: None. FINDINGS: Air-filled loops of small bowel and colon. There is stool in the rectum. No organomegaly. No abnormal abdominal calcifications. Right pelvic phlebolith. IMPRESSION: Findings likely represent an ileus. No significant constipation. Electronically signed by Joseluis Connors 07/28/2019 6:15 PM
[2019-07-28] MEDS ORDERED: DULCOLAX PO ONE (18:26)
[2019-07-28] MEDS: NAMENDA PO SCH (21:11)
[2019-07-28] MEDS: DEPAKOTE ER PO SCH (21:11)
[2019-07-28] MEDS: MIRALAX PO SCH (21:12)
[2019-07-29] MEDS: ZOSYN 3.375 GM in NS 50 ML IV SCH ×4 (00:48→17:18)
[2019-07-29] MEDS: MORPHINE IV PRN ×2 (02:32→06:31)
[2019-07-29] MEDS: VANCOMYCIN 1,800 MG in NS 500 ML IV SCH ×2 (05:17→22:59)
[2019-07-29 06:27] LABS: BASO# 0.02 X1000 (0.0-0.2); BASO% 0.5 % (0.0-0.8); EOS# 0.05 X1000 (0.0-0.7); EOS% 1.2 % (0.0-10.0); HEMATOCRIT 26.1 % (42.0-52.0); HEMOGLOBIN 8.3 g/dL (14.0-18.0); IMM GRAN# 0.02 X1000 (0.0-0.04); IMM GRAN% 0.5 % (0.0-0.5); LYMPH# 0.72 X1000 (1.2-3.4); LYMPH% 16.7 % (20.5-51.1); MCHC 31.8 g/dL (33-37); MCV 91.3 FL (81-99); MONO# 0.35 X1000 (0.11-0.59); MONO% 8.1 % (1.7-9.3); MPV 8.5 FL (7.4-10.4); NEUT# 3.16 X1000 (1.4-6.5); PLT 176 X1000 (130-400); RBC 2.86 XMIL (4.7-6.1); RDW 13.2 % (11.5-14.5); WBC 4.32 X1000 (4.8-10.8)
--- NOTE | 2019-07-29 08:57 | Diag Imaging Result Doc PS360 ---
CHEST-PORTABLE - 07/29/2019 INDICATION: pneumonia, chf COMPARISON: 07/27/2019 FINDINGS: Lung volumes are severely low with central crowding. There is stable cardiomegaly and pulmonary vascular congestion. Stable patchy bibasilar infiltrates, nonspecific. IMPRESSION: No change from prior. Electronically signed by eLo Greenwood 07/29/2019 8:55 AM
--- NOTE | 2019-07-29 08:57 | Diag Imaging Result Doc PS360 ---
KUB ABDOMEN - 07/29/2019 INDICATION: ileus COMPARISON: None FINDINGS: The colon is mildly hyperinflated but this appears nonspecific. This is probably within normal limits. There is mild rectal stool impaction. Small bowel gas appears normal. IMPRESSION: Nonspecific findings. Electronically signed by Leo Greenwood 07/29/2019 8:54 AM
[2019-07-29] MEDS: SINEMET 25/100 PO SCH ×4 (09:09→20:54)
[2019-07-29] MEDS: CYMBALTA PO SCH (09:09)
[2019-07-29] MEDS: FLOMAX PO SCH (09:09)
[2019-07-29] MEDS: ELIQUIS PO SCH ×2 (09:09→20:54)
[2019-07-29] MEDS: MIRALAX PO SCH ×2 (09:10→20:55)
[2019-07-29] MEDS: ASPIRIN EC PO SCH (09:10)
[2019-07-29] MEDS: NEURONTIN PO SCH ×3 (09:10→17:18)
[2019-07-29] MEDS: CARDIZEM CD PO SCH (09:10)
[2019-07-29 09:28] LABS: AGAP 15; BUN 15 mg/dL (8-22); CALCIUM 8.3 mg/dL (8.8-10.2); CHLORIDE 93 mmol/L (98-107); COSMO 260; CREATININE 0.9 mg/dL (0.7-1.2); ESTIMATED GFR > 60; GLUCOSE 99 mg/dL (70-104); POTASSIUM 3.9 mmol/L (3.5-5.1); SODIUM 129 mmol/L (136-145); TCO2 21 mmol/L (25-35)
[2019-07-29] MEDS ORDERED: DULCOLAX PR ONE (10:12)
[2019-07-29 12:50] LABS: HEMATOCRIT 36.4 % (42.0-52.0); HEMOGLOBIN 11.6 g/dL (14.0-18.0)
--- NOTE | 2019-07-29 15:24 | PROGRESS NOTE ---
DATE: 07/29/2019 INTERVAL HISTORY: The patient is still a little somnolent but less so than yesterday. Had one episode of vomiting this morning. It has not been repeated. Complains primarily of diffuse mild abdominal pain. Respiratory status pretty stable. Still with stable tremor. REVIEW OF SYSTEMS: Twelve point review of systems negative except as per interval history. LABS: WBC 4.3, hemoglobin 11.6, hematocrit 36.4. Sodium 129, potassium 3.9, BUN 15, creatinine 0.9, glucose 99. IMAGING: Abdomen from yesterday afternoon with likely ileus. X-ray this morning with mild hyperinflation of the colon that is nonspecific. Mild rectal stool impaction. Chest x-ray essentially stable with mild bibasilar infiltrates. VITALS: T-max 98.1 degrees, pulse 85, respirations 18, blood pressure 125/80, O2 saturation 95% on 2 L by nasal cannula. PHYSICAL EXAMINATION: General: No acute distress. Chronically ill-appearing. Vitals: As above. HEENT: Normocephalic, atraumatic. Moist mucous membranes. No cervical adenopathy. Cardiovascular: Mildly irregular. Normal rate. No murmurs noted. Pulmonary: Bibasilar rales approximately stable to slightly improved. Left remains greater than right. Upper lungs remain clear. Extremities: Peripheral pulses intact. No clubbing or cyanosis. Lower extremity edema roughly stable at 2 to 3+. Neurologic: The patient remains hard of hearing. Tremor noted, which remains worse on the right. No new focal deficits. Psychiatric: Flat affect. Normal mood. Awake, alert, and cooperative. Abdomen: Distended, somewhat tympanic but actually pretty good bowel sounds and nontender. ASSESSMENT AND PLAN: 1. Fever and dyspnea, likely pneumonia. The patient presented with fever, dyspnea, and borderline low oxygen saturations. Imaging was consistent with pneumonia. Given severe lower extremity edema, he may have some aspect of acute on chronic diastolic congestive heart failure as well. He had significant leukocytosis on admission, which has normalized. On antibiotics with vancomycin and Zosyn, which we will continue for now. If his other issues can be resolved, then he may be able to go back to long-term care in the next 48 hours. 2. Atrial fibrillation with rapid ventricular response. Shortly after admission, the patient went into atrial fibrillation with rapid ventricular response. He has now been converted back to largely sinus rhythm, although he remains a little irregular on exam with frequent premature atrial contractions and premature ventricular contractions on the monitor. Cardiology following. He is on Eliquis and diltiazem. 3. Lower extremity edema, likely acute on chronic diastolic congestive heart failure. The patient does not appear to have a lot of fluid on his lungs but definitely has significant lower extremity edema. Gave a dose of Lasix yesterday without as much diuresis as I would like. We will give a higher dose of Lasix today and monitor response. 4. Hyperkalemia and hypokalemia. The patient's initial potassium was elevated. Subsequently, it dropped low and had to be repleted. Fairly stable since then. Monitor labs. 5. Hyponatremia, roughly stable and mild. Monitor. 6. Likely ileus. Patient with abdominal distention. Pretty good bowel sounds but no bowel movement thus far. He has not had much response to oral MiraLAX and Dulcolax. We will give Dulcolax suppository and monitor. If we still do not get a response, then we may have to give an enema. Repeat abdominal imaging in the morning. 7. Benign prostatic hypertrophy. Continue home tamsulosin. 8. Parkinson's. Continue home Sinemet, gabapentin, Depakote, and Cymbalta.
[2019-07-29] MEDS: LASIX IV SCH (17:18)
[2019-07-29] MEDS: DEPAKOTE ER PO SCH (20:54)
[2019-07-29] MEDS: NAMENDA PO SCH (20:54)
[2019-07-30] MEDS: ZOSYN 3.375 GM in NS 50 ML IV SCH ×4 (00:06→20:04)
[2019-07-30] MEDS: LASIX IV SCH ×2 (03:09→15:21)
[2019-07-30 05:59] LABS: BASO# 0.05 X1000 (0.0-0.2); BASO% 0.7 % (0.0-0.8); EOS# 0.08 X1000 (0.0-0.7); EOS% 1.2 % (0.0-10.0); HEMATOCRIT 36.8 % (42.0-52.0); HEMOGLOBIN 11.7 g/dL (14.0-18.0); IMM GRAN# 0.06 X1000 (0.0-0.04); IMM GRAN% 0.9 % (0.0-0.5); LYMPH# 0.93 X1000 (1.2-3.4); LYMPH% 13.8 % (20.5-51.1); MCH 28.9 PG (27-31); MCHC 31.8 g/dL (33-37); MCV 90.9 FL (81-99); MONO# 0.62 X1000 (0.11-0.59); MONO% 9.2 % (1.7-9.3); MPV 8.7 FL (7.4-10.4); NEUT# 5.02 X1000 (1.4-6.5); NEUT% 74.2 % (42.2-75.2); PLT 280 X1000 (130-400); RBC 4.05 XMIL (4.7-6.1); RDW 13.7 % (11.5-14.5); WBC 6.76 X1000 (4.8-10.8)
[2019-07-30 06:25] LABS: CALCIUM 8.6 mg/dL (8.8-10.2); CREATININE 1.2 mg/dL (0.7-1.2); POTASSIUM 3.1 mmol/L (3.5-5.1)
--- NOTE | 2019-07-30 07:33 | Diag Imaging Result Doc PS360 ---
EXAM: KUB ABDOMEN 07/30/2019 HISTORY: ileus TECHNIQUE: KUB COMMENT: There is marked dilatation of the entire colon with fecal impaction in the rectum. The small bowel and stomach are not distended. IMPRESSION: Fecal impaction. Electronically signed by Joseph Durand 07/30/2019 7:31 AM
[2019-07-30] MEDS: SINEMET 25/100 PO SCH ×4 (09:56→20:04)
[2019-07-30] MEDS: NEURONTIN PO SCH ×3 (09:57→17:13)
[2019-07-30] MEDS: ELIQUIS PO SCH ×2 (09:57→20:04)
[2019-07-30] MEDS: ASPIRIN EC PO SCH (09:57)
[2019-07-30] MEDS: FLOMAX PO SCH (09:57)
[2019-07-30] MEDS: CYMBALTA PO SCH (09:57)
[2019-07-30] MEDS: CARDIZEM CD PO SCH (09:57)
[2019-07-30] MEDS: MIRALAX PO SCH ×2 (09:58→20:04)
[2019-07-30] MEDS: POTASSIUM CHLORIDE 20 MEQ/SWI 20 MEQ/100 ML IVPB IV SCH ×2 (10:00→14:07)
--- NOTE | 2019-07-30 10:18 | EKG Report ---
Test Performed on : 07/28/2019 04:52:31 AM Test Reason : EVAL PHONG Blood Pressure : / mmHG Vent. Rate : 079 BPM Atrial Rate : 079 BPM P-R Int : 160 ms QRS Dur : 084 ms QT Int : 398 ms P-R-T Axes : 072 -32 045 degrees QTc Int : 456 ms Sinus rhythm. with premature atrial complexes. Left axis deviation Low voltage QRS Nonspecific ST and T wave abnormality Abnormal ECG When compared with ECG of 26-JUL-2019 22:25, (Unconfirmed) Sinus rhythm. has replaced Atrial fibrillation. Vent. rate has decreased BY 59 BPM Incomplete right bundle branch block is no longer present Confirmed by Alfredo Campbell MD ([id number]) on 08/01/2019 2:04:13 PM
[2019-07-30] MEDS ORDERED: ZOSYN ONE (10:48)
--- NOTE | 2019-07-30 14:18 | PROGRESS NOTE ---
DATE: 07/30/2019 INTERVAL HISTORY: The patient with no further fever. Atrial fibrillation remains controlled. He is actually in sinus rhythm with occasional PACs and PVCs most of the time. Oxygenation remains pretty good. Still with abdominal distention and discomfort. No other complaints. REVIEW OF SYSTEMS: Twelve point review of systems negative, except as per interval history. LABS: WBC 6.7, hemoglobin 11.7, hematocrit 36.8, platelets 280. Sodium 131, potassium 3.1, BUN 16, creatinine 1.2. VITALS: T-max 98.2 degrees, pulse 100, respirations 22, blood pressure 122/85, O2 saturation 96% on 3 L by nasal cannula. IMAGING: Abdominal x-ray with fecal impaction and marked dilation of the colon. PHYSICAL EXAMINATION: General: No acute distress. Vitals: As above, chronically ill-appearing. HEENT: Normocephalic, atraumatic. Moist mucous membranes. Neck: No cervical adenopathy. Cardiovascular: He remains mildly irregular rhythm, but normal rate. No murmurs noted. Pulmonary: Bibasilar rales, slightly improved. Extremities: Peripheral pulses intact. No clubbing or cyanosis. Slightly improved 2+ to 3+ lower extremity edema. Neurologic: The patient remains hard of hearing. Tremor roughly stable. No new focal deficits. Psychiatric: Flat affect, stable. Normal mood. Awake, alert, cooperative. Abdomen: Remains distended and tympanic. Significant tinkles on auscultation. Nontender. ASSESSMENT AND PLAN: 1. Likely pneumonia, fever and dyspnea. The patient presented with fever, dyspnea, borderline low oxygen saturations. Imaging consistent with pneumonia. He has been on antibiotics with vancomycin and Zosyn, is doing well. Could likely come off oxygen entirely at this point. Anticipate changing over to an antibiotic by mouth, likely Levaquin or doxycycline, on discharge. 2. Atrial fibrillation with rapid ventricular response. Shortly after admission, patient went into atrial fibrillation with rapid ventricular response and was transferred here. He has now been in largely normal sinus rhythm, although with a lot of premature atrial complexes and premature ventricular complexes for at least a couple days now. Cardiology following. On Eliquis, diltiazem. 3. Ileus, colon impaction. The patient with increasing abdominal distention over the last couple days. Initial x-ray consistent with ileus. Most recent one showing rectal impaction and colon dilation. Initially tried laxatives, which have not been effective thus far. We will give patient enemas and see if we can get his bowels moving and his belly less distended. 4. Likely acute on chronic diastolic congestive heart failure. Patient with pretty significant lower extremity edema which is still worse than baseline, but improved from a day or two ago. Does not seem to be affecting his breathing much, but we will continue Lasix to try and get some of the swelling off him. 5. Hyperkalemia and hypokalemia. Patient's potassium high initially, but since then has been intermittently low. Low again this morning at 3.1. We will replete and monitor. 6. Hyponatremia remains essentially stable and mild. Monitor labs, but no need for acute intervention. 7. Parkinson disease. Continue home Sinemet, gabapentin, Depakote, Cymbalta. 8. Benign prostatic hypertrophy. Continue home tamsulosin. 9. Disposition: Respiratory status is doing pretty well. [facility] in the next 24 to 48 hours if his ileus/impaction will resolve.
[2019-07-30] MEDS: DEPAKOTE ER PO SCH (20:04)
[2019-07-30] MEDS: NAMENDA PO SCH (20:04)
[2019-07-30] MEDS ORDERED: VANCOMYCIN 1,800 MG in NS 500 ML IV SCH (21:00)
[2019-07-31] MEDS: ZOSYN 3.375 GM in NS 50 ML IV SCH ×4 (01:52→20:34)
[2019-07-31 06:08] LABS: BASO# 0.05 X1000 (0.0-0.2); BASO% 0.5 % (0.0-0.8); EOS# 0.12 X1000 (0.0-0.7); EOS% 1.3 % (0.0-10.0); HEMATOCRIT 37.6 % (42.0-52.0); HEMOGLOBIN 11.8 g/dL (14.0-18.0); IMM GRAN# 0.15 X1000 (0.0-0.04); IMM GRAN% 1.6 % (0.0-0.5); LYMPH% 15.2 % (20.5-51.1); MCH 28.6 PG (27-31); MCHC 31.4 g/dL (33-37); MCV 91.3 FL (81-99); MONO# 0.74 X1000 (0.11-0.59); MPV 8.9 FL (7.4-10.4); NEUT# 6.78 X1000 (1.4-6.5); NEUT% 73.4 % (42.2-75.2); PLT 302 X1000 (130-400); RBC 4.12 XMIL (4.7-6.1); RDW 13.8 % (11.5-14.5); WBC 9.24 X1000 (4.8-10.8)
[2019-07-31 06:30] LABS: CALCIUM 8.7 mg/dL (8.8-10.2); CREATININE 1.5 mg/dL (0.7-1.2); POTASSIUM 3.1 mmol/L (3.5-5.1)
[2019-07-31] MEDS: MIRALAX PO SCH ×2 (09:12→20:35)
[2019-07-31] MEDS: CARDIZEM CD PO SCH (09:12)
[2019-07-31] MEDS: FLOMAX PO SCH (09:13)
[2019-07-31] MEDS: CYMBALTA PO SCH (09:13)
[2019-07-31] MEDS: NEURONTIN PO SCH ×3 (09:13→17:35)
[2019-07-31] MEDS: SINEMET 25/100 PO SCH ×4 (09:13→20:36)
[2019-07-31] MEDS: ASPIRIN EC PO SCH (09:13)
[2019-07-31] MEDS: ELIQUIS PO SCH ×2 (09:13→20:35)
[2019-07-31] MEDS: LASIX IV SCH (09:13)
[2019-07-31] MEDS ORDERED: KLOR-CON PO ONE (12:35)
[2019-07-31] MEDS ORDERED: RELISTOR SUBQ ONE (12:36)
--- NOTE | 2019-07-31 15:01 | PROGRESS NOTE ---
DATE: 07/31/2019 SUBJECTIVE: The patient has no major complaints. OBJECTIVE: Blood pressure is 126/68, O2 saturation 98 on 2 L. Cardiovascular: Regular rate and rhythm. Pulmonary: Bilateral breath sounds clear to auscultation. GI: Soft, nontender. He is actually extremely distended with a fecal impaction so we will continue to follow. Disposition pending clinical status. Laboratory Data: White count is 9, hemoglobin and hematocrit 11 and 37, platelets 302,000. Creatinine is up to 1.5. PROBLEM LIST: 1. Pneumonia, possible aspiration type. He is on vancomycin and Zosyn. I am going to stop the vancomycin and likely do Zyvox in the meantime or we could probably just stop the vancomycin just because he has got some renal insufficiency. 2. Fecal impaction, ileus. We will need to continue enemas. I am going to try Relistor but I am not entirely sure that will be effective in this situation but to me, he is grossly distended. Not really on any chronic narcotics so I am not entirely sure this is going to be effective at all, but we will need to most likely disimpact him or use enemas. 3. Atrial fibrillation with rapid ventricular response. We will continue treatment. Now, he seems to be doing okay. He is on Cardizem and Eliquis. 4. Acute on chronic congestive heart failure. Appears to be stable currently. 5. Hypokalemia. We will continue to supplement. 6. Parkinsonism is stable, currently on Sinemet. That may be possibly affecting his gut function. We will continue to follow. Repeat labs today and continue to monitor. cc: Victor M Card MD
[2019-07-31] MEDS: FLEET ENEMA PR ONE ×2 (16:17→16:53)
[2019-07-31] MEDS ORDERED: CARDIZEM PO ONE (18:42)
--- NOTE | 2019-07-31 19:56 | EKG Report ---
Test Performed on : 07/31/2019 6:15:24 PM Test Reason : rhythm change Blood Pressure : / mmHG Vent. Rate : 138 BPM Atrial Rate : 058 BPM P-R Int : 000 ms QRS Dur : 094 ms QT Int : 302 ms P-R-T Axes : 000 -27 197 degrees QTc Int : 457 ms Atrial fibrillation. Marked ST abnormality, possible anterolateral subendocardial injury Nonspecific ST and T wave abnormality Inferior leads Abnormal ECG When compared with ECG of 28-JUL-2019 04:52, (Unconfirmed) Atrial fibrillation. has replaced Normal sinus rhythm. ST now depressed in Anterolateral leads Nonspecific T wave abnormality now evident in Inferior leads T wave inversion now evident in Anterolateral leads Confirmed by Alfredo Campbell MD ([id number]) on 08/01/2019 3:49:09 PM
--- NOTE | 2019-07-31 19:56 | EKG Report ---
Test Performed on : 07/31/2019 7:12:48 PM Test Reason : sr vs afib Blood Pressure : / mmHG Vent. Rate : 097 BPM Atrial Rate : 097 BPM P-R Int : 168 ms QRS Dur : 104 ms QT Int : 364 ms P-R-T Axes : 028 -30 039 degrees QTc Int : 462 ms Sinus rhythm. with premature supraventricular complexes. Left axis deviation RSR' or QR pattern in V1 suggests right ventricular conduction delay ST & T wave abnormality, consider anterolateral ischemia Prolonged QT Abnormal ECG When compared with ECG of 31-JUL-2019 18:15, (Unconfirmed) Normal sinus rhythm. has replaced Atrial fibrillation. ST no longer depressed in Inferior leads T wave inversion less evident in Lateral leads Confirmed by Alfredo Campbell MD ([id number]) on 08/01/2019 3:51:13 PM
[2019-07-31] MEDS: LACTULOSE PO SCH (20:35)
[2019-07-31] MEDS: NAMENDA PO SCH (20:36)
[2019-07-31] MEDS: DEPAKOTE ER PO SCH (20:36)
[2019-08-01] MEDS: ZOSYN 3.375 GM in NS 50 ML IV SCH ×3 (02:11→13:28)
[2019-08-01 06:15] LABS: BASO# 0.03 X1000 (0.0-0.2); BASO% 0.4 % (0.0-0.8); EOS# 0.13 X1000 (0.0-0.7); EOS% 1.8 % (0.0-10.0); HEMATOCRIT 37.2 % (42.0-52.0); HEMOGLOBIN 11.7 g/dL (14.0-18.0); IMM GRAN# 0.18 X1000 (0.0-0.04); IMM GRAN% 2.6 % (0.0-0.5); LYMPH# 0.82 X1000 (1.2-3.4); LYMPH% 11.6 % (20.5-51.1); MCH 28.7 PG (27-31); MCHC 31.5 g/dL (33-37); MCV 91.4 FL (81-99); MONO# 0.58 X1000 (0.11-0.59); MONO% 8.2 % (1.7-9.3); MPV 8.4 FL (7.4-10.4); NEUT% 75.4 % (42.2-75.2); PLT 325 X1000 (130-400); RBC 4.07 XMIL (4.7-6.1); RDW 13.9 % (11.5-14.5); WBC 7.04 X1000 (4.8-10.8)
[2019-08-01 06:47] LABS: CALCIUM 9.1 mg/dL (8.8-10.2); CREATININE 1.6 mg/dL (0.7-1.2); POTASSIUM 3.1 mmol/L (3.5-5.1)
[2019-08-01] MEDS: CARDIZEM CD PO SCH (09:21)
[2019-08-01] MEDS: ASPIRIN EC PO SCH (09:21)
[2019-08-01] MEDS: CYMBALTA PO SCH (09:21)
[2019-08-01] MEDS: FLOMAX PO SCH (09:21)
[2019-08-01] MEDS: NEURONTIN PO SCH ×3 (09:21→17:46)
[2019-08-01] MEDS: MIRALAX PO SCH ×2 (09:21→21:37)
[2019-08-01] MEDS: SINEMET 25/100 PO SCH ×4 (09:21→21:36)
[2019-08-01] MEDS: LACTULOSE PO SCH ×2 (09:21→21:36)
[2019-08-01] MEDS: ELIQUIS PO SCH ×2 (09:21→21:36)
--- NOTE | 2019-08-01 09:56 | Diag Imaging Result Doc PS360 ---
EXAM: ABDOMEN FLAT/UPRIGHT 08/01/2019 HISTORY: ileus/fecal impaction TECHNIQUE: Flat and upright abdomen COMMENT: There is gas throughout the colon. The fecal impaction which was seen in the rectum on 07/30/2019 has apparently been cleared. The degree of gaseous dilatation of the colon has not changed appreciably however. Otherwise there has been no significant change. IMPRESSION: Colonic ileus. Electronically signed by Joseph Durand 08/01/2019 9:53 AM
[2019-08-01] MEDS: CLINIMIX E 4.25%-5% SOLUTION 1,000 ML IV SCH ×2 (16:31→21:36)
--- NOTE | 2019-08-01 16:33 | PROGRESS NOTE ---
DATE: 08/01/2019 SUBJECTIVE: He is still minimally verbal. OBJECTIVE: Vital Signs: Blood pressure is 127/78, heart rate 79, respiratory rate 22, temperature 98.2 degrees, O2 saturation 96% percent on 2 L. Cardiovascular: Regular rate and rhythm. Pulmonary: Bilateral breath sounds clear to auscultation. GI: Soft, still very distended, very tight. He had tympanic bowel sounds kind of throughout. LABORATORY DATA: White count is 7, hemoglobin 11, hematocrit 37, platelets 325,000. Potassium 3.1. Creatinine is up to 1.6. PROBLEM LIST: 1. Aspiration-type pneumonia. He is on Zosyn and vancomycin. I am going to stop the vancomycin because he has some renal insufficiency. We may have to dose adjust the Zosyn. His GFR is around 42, which gives us a 3a renal failure. 2. Hypokalemia. We will continue to supplement and follow. 3. Ileus is not resolved with his fecal impaction removal. He is not on any chronic narcotics. I am not sure if this is related to Parkinsonism and he has a colonic ileus just due to chronic constipation and disuse or Parkinsonism. We will get a Gastroenterology opinion and follow. DISPOSITION: Pending his clinical status. cc: Victor M Card MD
[2019-08-01] MEDS: ZOSYN 2.25 GM in NS 50 ML IV SCH ×2 (16:41→22:05)
--- NOTE | 2019-08-01 16:58 | GENERAL SURGERY CONSULTATION ---
DATE: 08/01/2019 REQUESTING PHYSICIAN: Dr. Card. REASON FOR CONSULTATION: Consult is concerning persistent ileus. HISTORY OF PRESENT ILLNESS: An 79-year-old gentleman with a past medical history of Parkinson's and hypertension, who was initially admitted for shortness of breath and pneumonia. He has now had abdominal distention. He has had several x-rays. It looked more like an ileus. They have been giving him enemas. He is now having some productive output. The patient is not particularly verbal at this time. He is not giving any further history. There is no family at the bedside. PAST MEDICAL HISTORY: Includes SVT, hypertension, Parkinson's. PAST SURGICAL HISTORY: Includes appendectomy, hernia repair. HOME MEDICATIONS: In the MAR and reviewed. ALLERGIES: None. SOCIAL HISTORY: Lives at a group home facility. FAMILY HISTORY: Noncontributory and difficult to obtain secondary to patient's mental status. REVIEW OF SYSTEMS: A full 14 systems were reviewed and are negative except as specified in the HPI. PHYSICAL EXAMINATION: Vital Signs: The patient is currently afebrile. His vital signs are stable. General Examination: No acute distress, interactive. HEENT: Normocephalic, atraumatic. Pupils equal, round, reactive to light. Mucous membranes moist. Oropharynx benign. Neck: Supple. Trachea midline. Cardiovascular: Regular rate and rhythm. Lungs: Some coarse sounds noted. Abdomen: Distended, somewhat tympanic. Bowel sounds auscultated. Extremities: Moves all extremities. Neurologic: He can follow and interact. Vascular: All extremities perfused. Skin: No signs of jaundice. LABORATORY: White blood count is normal, hematocrit is 37, platelet count is normal. Remainder of labs reviewed. Of note, his creatinine is 1.6. Imaging reviewed and noted above. ASSESSMENT AND PLAN: An 79-year-old gentleman with an ileus. 1. Multiple medical comorbidities including pneumonia, atrial fibrillation, acute on chronic congestive heart failure, and progress is being managed by the hospitalist. 2. Ileus. At this time, I think he has had some improvement. He had a significant bowel movement while he I was in there. He does have bowel sounds. At this point, would monitor him. May consider getting gastroenterology involved to do a decompressive colonoscopy versus a rectal tube but at this time, no immediate plans for surgical intervention. I appreciate the consult. I will continue to follow. Truman#: [id number] cc: Ricky Gould MD
[2019-08-01] MEDS: NAMENDA PO SCH (21:36)
[2019-08-01] MEDS: DEPAKOTE ER PO SCH (21:36)
[2019-08-02 05:36] LABS: BASO# 0.04 X1000 (0.0-0.2); BASO% 0.5 % (0.0-0.8); EOS# 0.15 X1000 (0.0-0.7); EOS% 1.9 % (0.0-10.0); HEMATOCRIT 39.1 % (42.0-52.0); HEMOGLOBIN 12.3 g/dL (14.0-18.0); IMM GRAN# 0.12 X1000 (0.0-0.04); IMM GRAN% 1.5 % (0.0-0.5); LYMPH# 0.88 X1000 (1.2-3.4); LYMPH% 10.9 % (20.5-51.1); MCH 28.9 PG (27-31); MCHC 31.5 g/dL (33-37); MONO# 0.64 X1000 (0.11-0.59); MPV 8.9 FL (7.4-10.4); NEUT# 6.21 X1000 (1.4-6.5); NEUT% 77.2 % (42.2-75.2); PLT 367 X1000 (130-400); RBC 4.25 XMIL (4.7-6.1); RDW 14.2 % (11.5-14.5); WBC 8.04 X1000 (4.8-10.8)
--- NOTE | 2019-08-02 05:57 | GENERAL SURGERY PROGRESS NOTE ---
DATE: 08/02/2019 SUBJECTIVE: The patient seems to be doing okay. Again, his verbal responses are somewhat hard to understand. OBJECTIVE: Vital Signs: The patient is currently afebrile. His vital signs are stable. General: No acute distress. HEENT: Normocephalic, atraumatic. Pupils equal, round, and reactive to light. Mucous membranes are moist. Oropharynx benign. Neck: Supple. Trachea midline. Cardiovascular: Regular rate and rhythm. Lungs: Grossly clear. Abdomen: Tympanic, distended, does not appear to be tender. Bowel sounds auscultated. Extremities: Moves all extremities. Neurologic: Grossly intact. Skin: No signs of jaundice. Vascular: All extremities perfused. LABORATORY: White blood count is normal, hematocrit 39, platelet count normal. ASSESSMENT AND PLAN: An 79-year-old gentleman with a bowel obstruction versus ileus. Bowel obstruction versus ileus: At this time, he does have bowel sounds which seem to be relatively stable today compared to yesterday. I suspect he may need some degree of a decompressive colonoscopy or rectal tube to allow continued output. I recommend potentially getting GI involved. His gaseous distention is up to almost 10 cm and looks like his right colon. At this point, continue supportive care and maybe get the opinion of GI. cc: Ricky Gould MD
[2019-08-02] MEDS: ZOSYN 2.25 GM in NS 50 ML IV SCH ×3 (06:07→16:54)
[2019-08-02 06:09] LABS: CALCIUM 9.5 mg/dL (8.8-10.2); CREATININE 1.4 mg/dL (0.7-1.2); MAGNESIUM 2.3 mg/dL (1.5-2.7); POTASSIUM 3.1 mmol/L (3.5-5.1)
[2019-08-02] MEDS: CLINIMIX E 4.25%-5% SOLUTION 1,000 ML IV SCH (06:50)
[2019-08-02] MEDS: CYMBALTA PO SCH (09:20)
[2019-08-02] MEDS: FLOMAX PO SCH (09:20)
[2019-08-02] MEDS: ELIQUIS PO SCH (09:20)
[2019-08-02] MEDS: SINEMET 25/100 PO SCH ×2 (09:20→14:10)
[2019-08-02] MEDS: ASPIRIN EC PO SCH (09:20)
[2019-08-02] MEDS: NEURONTIN PO SCH ×3 (09:20→16:53)
[2019-08-02] MEDS: MIRALAX PO SCH ×2 (09:21→21:09)
[2019-08-02] MEDS: LACTULOSE PO SCH ×2 (09:21→21:10)
[2019-08-02] MEDS: CARDIZEM CD PO SCH (09:22)
[2019-08-02] MEDS ORDERED: GLYCERIN ADULT PR ONE (14:15)
[2019-08-02] MEDS ORDERED: MILK OF MAGNESIA PO ONE (14:18)
--- NOTE | 2019-08-02 14:41 | GASTROENTEROLOGY CONSULTATION ---
DATE: 08/02/2019 IMPRESSION AND PLAN: This is an 79-year-old gentleman who was admitted to the hospital with shortness of breath. He is currently being treated for aspiration pneumonia. During hospitalization, he was found to have distended colon. The distended colon most likely appears to be multifactorial. Hypokalemia has a major role to play in his symptoms on his presentation. However, additional issues such as Parkinson's disease, medications such as diltiazem and immobility added to that aerophagia is contributing to his Andree like picture of his colon. To treat, I would recommend to replenish potassium to keep it close to 4. I would advise to start Dulcolax suppository at least once today, and then continue on a laxative such as Milk of Magnesia 30 mL p.o. every day. To reduce the effect of aerophagia, I would recommend Phazyme or simethicone 1 to 2 p.o. t.i.d. Repeat abdominal x-ray in the morning. If these measures do not work, decompressive colonoscopy can be entertained, but of course it carries a very high risk because of the endoscopy with poor prep may be problematic. I will continue to follow the patient with you. HISTORY: This is an 79-year-old gentleman who is currently at a long term, was admitted to the hospital with fever, shortness of breath, and lower extremity edema. He has multiple medical problems including Parkinson's disease, and has history of arrhythmia. During hospitalization, he was found to have distended abdomen. Further workup revealed a dilated colon. The patient is not complaining of any abdominal pain. He has had good bowel movements yesterday noted by Dr. Gould. He has been tolerating his diet. He has not been having any nausea or vomiting. He denies any blood or mucus in his stool. PAST MEDICAL HISTORY: Significant for hypertension, Parkinson's disease, and history of SVT. PAST SURGICAL HISTORY: He has had appendectomy and herniorrhaphy. MEDICATIONS: Prior to his hospitalization, he was on Flomax, Klor-Con, Remeron, metoprolol, Namenda, Linzess, gabapentin, Lasix, fluticasone, Cymbalta, Depakote, Sinemet, and aspirin. ALLERGIES: No known drug allergies. SOCIAL HISTORY: He currently is living at a nursing facility. He does not smoke. Does not drink. He does illicit drugs. FAMILY HISTORY: Noncontributory. REVIEW OF SYSTEMS: As per HPI as above. PHYSICAL EXAMINATION: Vital Signs: Temperature 97.8 degrees, pulse 76, breathing 21, and blood pressure 151/87. General: On examination, this is an elderly gentleman lying in bed. He is conscious. He is slightly tachypneic. He is mouth breathing. HEENT: Head is atraumatic, normocephalic. Eyes: Conjunctivae is normal. Sclerae anicteric. Nares are patent. No discharge noted. Mouth: Buccal mucosa is moist. Throat is normal. Neck: Supple. No lymphadenopathy or thyromegaly. HEENT: Head is atraumatic normocephalic is normal. Sclerae anicteric. Nares are patent. No discharge. Mouth buccal mucosa is moist. Throat is normal. Chest: Bilaterally symmetrical. It is moving with respirations. Breath sounds audible bilaterally. No rhonchi or crepitations could be heard. Heart: Audible. No murmur could be appreciated. Abdomen: Distended, and slightly tense. On percussion, the abdomen was resonant. No rebound tenderness or guarding noted. Bowel sounds are audible. No pedal edema, cyanosis, or clubbing was noted. LABORATORIES: Reviewed which showed WBC of 8.04, hemoglobin 12.3, hematocrit 39.1, MCV 92.0, and platelets were 367,000. Sodium 138, potassium 3.1, chloride 95, bicarb 29, BUN 34, and creatinine 1.4. Abdominal x-ray done today shows dilated colon with a fecal impaction that was done prior to his bowel movement. IMPRESSION AND PLAN: As mentioned above. cc: Gokul Ruffin MD
--- NOTE | 2019-08-02 16:46 | PROGRESS NOTE ---
DATE: 08/02/2019 SUBJECTIVE: Patient has no major complaints. OBJECTIVE: Vital signs: Blood pressure is 136/76, heart rate is 77, respiratory rate of 19, temperature 97.9 degrees, 97% saturation. Cardiovascular: Regular rate and rhythm. Pulmonary: Bilateral breath sounds. Clear to auscultation. GI: Soft, nontender, nondistended. Bowel sounds are positive. LABORATORY DATA: White count 8, hemoglobin and hematocrit 12 and 39, platelets 367,000. Potassium 3.1. Creatinine is down to 1.4. PROBLEM LIST: 1. Ileus, akinetic colon. I am not sure if he has [place] syndrome. He is much more distended today than yesterday. I am pretty worried about dilation. We will get another repeat film tomorrow. I am going to cut back on his Sinemet to 3 times a day instead of 4. He is at least somewhat verbal today, but he is just grossly distended. I just worry about perforation. 2. I agree with Dr. Gould, in any case, that he may have to have decompressive colonoscopy. I do not really know what else we can do. I think Dr. Silva feels that if we can get his potassium corrected that this will help with his gut motility. He is hypokalemic but not profoundly so by any means. I am a little worried about this getting worse. I am going to check plain films tomorrow and we will see how things go. 3. Parkinsonism. Again, I think that is pretty much stable. I am going to cut down on the Sinemet just because of his gut motility issues. 4. Nutrition. He is not getting very much nutrition. We have put him on some Clinimix because he really has been n.p.o. since he has been here. 5. Aspiration-type pneumonia. He is on Zosyn and vancomycin. I am just going to leave him on Zosyn because of aspiration concerns and vancomycin he had some renal insufficiency. This will be day 2 of the Zosyn, but he has been on it since admission, so I think this will probably be day 3. 6. Acute kidney injury. That seems to be better. Trying to avoid nephrotoxic substances. We will continue to follow. cc: Victor M Card MD
[2019-08-02] MEDS: TYLENOL LIQUID PO PRN (16:54)
[2019-08-02] MEDS: MYLICON PO SCH ×2 (18:32→21:09)
[2019-08-02] MEDS: NAMENDA PO SCH (21:09)
[2019-08-02] MEDS: DEPAKOTE ER PO SCH (21:10)
[2019-08-02] MEDS: MORPHINE IV PRN (21:40)
[2019-08-03] MEDS ORDERED: ZOSYN ONE (00:08)
[2019-08-03] MEDS: ZOSYN 2.25 GM in NS 50 ML IV SCH ×3 (00:33→09:48)
[2019-08-03] MEDS: SINEMET 25/100 PO SCH ×4 (00:33→23:47)
--- NOTE | 2019-08-03 06:00 | GENERAL SURGERY PROGRESS NOTE ---
DATE: 08/03/2019 SUBJECTIVE: Discussed the case with the nursing staff. The patient is reporting more pain through the night, had to get some morphine. He did have a bowel movement recorded. OBJECTIVE: Vital Signs: The patient is currently afebrile, his vital signs are stable. General: No acute distress. HEENT: Normocephalic, atraumatic. Pupils equal, round, and reactive to light. Mucous membranes moist. Oropharynx benign. Neck: Supple. Trachea midline. Cardiovascular: Regular rate and rhythm. Lungs: Grossly clear. Abdomen: Distended, tighter, difficult to assess tenderness. Tympanic to percussion. Extremities: Moves all extremities. Neurologic: Grossly intact. Skin: No signs of jaundice. Vascular: All extremities perfused. LABORATORY: None this morning as of yet, but reviewed labs from yesterday. Imaging currently pending. ASSESSMENT AND PLAN: An 79-year-old gentleman with ileus versus pseudo-obstruction. Ileus versus pseudo-obstruction: At this time, we will follow up with an abdominal film. If it is still distended, may recommend that GI do a decompressive colonoscopy. We will continue to follow. No immediate plans for surgical intervention at this time. cc: Ricky Gould MD
--- NOTE | 2019-08-03 07:35 | Diag Imaging Result Doc PS360 ---
EXAM: ABDOMEN FLAT/UPRIGHT HISTORY: sbo TECHNIQUE: Three views COMPARISON: 08/01/2019 FINDINGS: There are air distended loops of bowel which remain. No organomegaly. No abnormal abdominal calcifications. No foreign body. IMPRESSION: Persistent ileus or distal obstruction. Electronically signed by Joseluis Connors 08/03/2019 7:33 AM
[2019-08-03] MEDS ORDERED: DULCOLAX PR ONE (09:15)
[2019-08-03] MEDS: NEURONTIN PO SCH ×3 (09:47→17:56)
[2019-08-03] MEDS: ASPIRIN EC PO SCH (09:47)
[2019-08-03] MEDS: FLOMAX PO SCH (09:47)
[2019-08-03] MEDS: LACTULOSE PO SCH (09:47)
[2019-08-03] MEDS: CARDIZEM CD PO SCH (09:47)
[2019-08-03] MEDS: CYMBALTA PO SCH (09:47)
[2019-08-03] MEDS: MIRALAX PO SCH ×2 (09:47→23:48)
[2019-08-03] MEDS: MYLICON PO SCH ×4 (09:47→23:47)
[2019-08-03] MEDS: MORPHINE IV PRN ×2 (09:53→14:51)
[2019-08-03 10:08] LABS: BASO# 0.07 X1000 (0.0-0.2); BASO% 0.7 % (0.0-0.8); EOS# 0.06 X1000 (0.0-0.7); EOS% 0.6 % (0.0-10.0); HEMATOCRIT 41.3 % (42.0-52.0); HEMOGLOBIN 12.9 g/dL (14.0-18.0); IMM GRAN# 0.09 X1000 (0.0-0.04); IMM GRAN% 0.9 % (0.0-0.5); LYMPH# 0.96 X1000 (1.2-3.4); MCH 28.7 PG (27-31); MCHC 31.2 g/dL (33-37); MCV 91.8 FL (81-99); MONO% 6.2 % (1.7-9.3); MPV 8.9 FL (7.4-10.4); NEUT# 7.85 X1000 (1.4-6.5); NEUT% 81.6 % (42.2-75.2); PLT 441 X1000 (130-400); RDW 14.4 % (11.5-14.5); WBC 9.63 X1000 (4.8-10.8)
[2019-08-03 10:34] LABS: CALCIUM 9.4 mg/dL (8.8-10.2); CREATININE 1.4 mg/dL (0.7-1.2); POTASSIUM 3.1 mmol/L (3.5-5.1)
[2019-08-03] MEDS ORDERED: FLEET ENEMA PR ONE (10:35)
--- NOTE | 2019-08-03 10:53 | PROGRESS NOTE ---
DATE: 08/03/2019 SUBJECTIVE: The patient is complaining of more abdominal pain today. OBJECTIVE: Vital signs: Blood pressure 129/65, heart rate 68, respiratory rate 18, temperature 98.3 degrees. Cardiovascular: Regular rate and rhythm. Pulmonary: Bilateral breath sounds clear to auscultation. Gastrointestinal: Nontender. Not soft, it is it is kind of hard, but it is from dilation. He is tympanic in all 4 quadrants. He has kind of rushes and tinkles kind of sounds. LABORATORY DATA: White count is 9, hemoglobin and hematocrit 12 and 41, platelets 441,000. Depakote level 43. I am still waiting on his chemistry from today. IMAGING: His x-ray still shows persistent ileus or distal obstruction, in any case akinetic colon. ASSESSMENT AND PLAN: 1. [place] syndrome. He is as much if not possibly more distended today. I am just very concerned about possible perforation. Dr. Gould and Dr. Ruffin are on the case. I will discuss with Dr. Ruffin about possible decompressive colonoscopy. 2. Parkinsonism, which appears to be stable. I may cut his Sinemet down to twice a day. 3. Protein calorie malnutrition. We will continue Clinimix and follow. 4. Aspiration-type pneumonia. He is on Zosyn which will be day 3. 5. Acute kidney injury. I am waiting on repeat labs today. Prognosis is still guarded because of his multiple other issues. cc: Victor M Card MD
[2019-08-03] MEDS ORDERED: DIPRIVAN 1% ONE (11:02)
--- NOTE | 2019-08-03 11:10 | GASTROENTEROLOGY PROGRESS NOTE ---
DATE: 08/03/2019 SUBJECTIVE: Since yesterday, the patient's condition has not improved in fact has deteriorated. He continues to have severe abdominal distention and complains of abdominal pain. He has required morphine last night. He has had a rectal tube placed in since yesterday and has had small amount of stool which is mostly liquid stool. Other than that, he has not had any substantial bowel movements. The nurses have been turning him in his bed, but despite all the measures, he has not improved. OBJECTIVE: Vital signs temperature 98.3 degrees, pulse 68 per minute, breathing of 18, blood pressure 129/65. He is on 2 L nasal cannula and oxygen saturation is 93%. Abdomen is significantly distended, tender and slightly tender. Bowel sounds are audible. LABORATORIES: Reviewed which shows his potassium remained low at 3.1. Abdominal x-ray shows severe distention of both small and large bowel. In fact x-ray appearance is worse since yesterday. IMPRESSION: Abdominal distention with gaseous distention of the small and large bowel. The patient has not responded to the treatment rendered so far although potassium remains low that would have caused this is distention and ileus. Potassium is being replenished. In the meantime I will proceed with a colonoscopy to decompress the colon if possible and further plans made accordingly. cc: Gokul Ruffin MD
[2019-08-03] MEDS ORDERED: ZEMURON ONE ×2 (11:32→11:34)
[2019-08-03] MEDS ORDERED: BREVIBLOC ONE (11:33)
[2019-08-03] MEDS ORDERED: XYLOCAINE-MPF 2% ONE (11:34)
[2019-08-03] MEDS ORDERED: QUELICIN (DOSE) ONE (11:34)
--- NOTE | 2019-08-03 11:56 | ENDOSCOPY OPERATIVE NOTE ---
[facility] ENDOSCOPY OPERATIVE NOTE , COLONOSCOPY PROCEDURE REPORT PATIENT NAME: Ryan Wise ADMISSION DATE: 08/03/2019 MR #: [id number] BIRTHDATE: 1940 SURGEON: Gokul Ruffin MD FRONT DESK MANAGER: Li Cruz PROCEDURE DATE: 08/03/2019 STATUS: inpatient INDICATIONS: The patient is a 79 yr old male here for a colonoscopy due to general abdominal pain, a n abnormal imaging results in the digestive tract, and Distended colon and small bowel. PROCEDURE PERFORMED: Colonoscopy, diagnostic MEDICATIONS: Per Anesthesia PREP TYPE: GoLytely
[2019-08-03] MEDS: DIPRIVAN 1% 1,000 MG/100 ML BOTTLE IV SCH ×3 (12:35→23:44)
[2019-08-03 12:48] LABS: ALLEN TEST YES; BLOOD TYPE ARTERIAL; HCO3-(ACT) 28.7 mmoll (20.0-26.0); O2(CT) 16.4 mL/dL (15.0-23.0); O2HB 93.7 % (95.0-99.0); PO2(98.6) 69 mmHg (60-100); SAMPLE BLOOD; SAO2 96.7 % (95.0-100.0); SRATE 16 BPM; THB 12.4 g/dL (11.5-17.4); TVOL 500 mL; pH(98.6) 7.38 (7.35-7.45)
[2019-08-03 12:51] LABS: MODALITY VENTILATOR; PCO2(98.6) 53 mmHg (35-45)
--- NOTE | 2019-08-03 13:07 | Diag Imaging Result Doc PS360 ---
EXAM: CHEST-PORTABLE INDICATION: tube placement TECHNIQUE: One view COMPARISON: 07/29/2019 FINDINGS: There is a newly placed ET tube. The tip projects over the trachea and above the joni at about the T4 level. There is a newly placed NG tube. The tip projects well below the diaphragm and is assumed to be in the lumen of the stomach in the expected position. Pulmonary venous congestion is probably slightly worse than the previous study. There is infiltrate throughout the left lung with a basilar predominance that is probably slightly worse. There may be a small left effusion. IMPRESSION: 1.Interval placement of ET tube and NG tube as described. 2.Apparent worsening of pulmonary venous congestion and infiltrate throughout the left lung and possible development of a small left effusion. Electronically signed by Ru Castillo 08/03/2019 1:05 PM
[2019-08-03] MEDS: MILK OF MAGNESIA PO SCH (13:37)
[2019-08-03] MEDS: PROTONIX IV SCH (14:22)
[2019-08-03] MEDS: CARDIZEM PO SCH ×2 (14:22→23:48)
[2019-08-03] MEDS: SODIUM CHLORIDE 0.9% INJ SCH (14:22)
[2019-08-03] MEDS: VANCOMYCIN ORAL SOLN NG SCH ×2 (14:23→23:49)
[2019-08-03] MEDS: POTASSIUM CHLORIDE 20 MEQ/SWI 20 MEQ/100 ML IVPB IV SCH ×2 (14:23→19:32)
[2019-08-03] MEDS ORDERED: LASIX IV ONE (15:34)
[2019-08-03] MEDS: DUONEB (A & A) INH SCH ×3 (15:39→23:50)
--- NOTE | 2019-08-03 15:52 | EKG Report ---
Test Performed on : 08/03/2019 3:44:06 PM Test Reason : afib Blood Pressure : / mmHG Vent. Rate : 114 BPM Atrial Rate : 108 BPM P-R Int : 166 ms QRS Dur : 088 ms QT Int : 328 ms P-R-T Axes : 034 -42 053 degrees QTc Int : 452 ms Poor data quality - Undetermined rhythm - suspect sinus tachycardia with sinus arrhythmia/ supraventricular complexes Left axis deviation ST & T wave abnormality, consider anterolateral ischemia Abnormal ECG When compared with ECG of 31-JUL-2019 19:12, T wave inversion more evident in Lateral leads Confirmed by Alfredo Campbell MD ([id number]) on 08/04/2019 5:45:50 PM
[2019-08-03] MEDS ORDERED: DUONEB (A & A) INH ONE ×2 (16:05)
--- NOTE | 2019-08-03 16:16 | Diag Imaging Result Doc PS360 ---
EXAM: ABDOMEN FLAT/UPRIGHT INDICATION: possible perf TECHNIQUE: 3 views COMPARISON: 08/03/2019 FINDINGS: There are persistent gas distended loops of small bowel throughout the abdomen. The degree of distention is approximately stable as compared to the previous study. However, on the previous study there was colonic distention that has improved significantly. Although slight motion artifact somewhat limits fine details, I can identify no large volume free abdominal gas. The abdomen is essentially stable, otherwise. IMPRESSION: 1.Improvement of colonic distention but approximately stable small bowel distention as described. 2.No large volume free abdominal gas is appreciated on this study. Electronically signed by Ru Castillo 08/03/2019 4:14 PM
[2019-08-03] MEDS: SOLU-MEDROL IV SCH (16:23)
[2019-08-03] MEDS: MAXIPIME 1 GM in NS 50 ML IV SCH (17:54)
--- NOTE | 2019-08-03 18:13 | PULMONOLOGY CONSULTATION ---
DATE: 08/03/2019 REQUESTING PHYSICIAN: Victor M Card MD REASON FOR CONSULT: Respiratory failure. HISTORY OF PRESENT ILLNESS: This is an 79-year-old gentleman with a history of Parkinson disease, SVT and hypertension, who presented to the emergency room via EMS from a halfway facility for 4 days of fever, shortness of breath, lower extremity edema and generalized body aches and cough. Chest x-ray did not show pneumonia, although it did show some aspect of heart failure. He went into atrial fibrillation/RVR and was transferred to [facility]. He was evaluated by Cardiology. CT scan revealed bibasilar interstitial edema. It was felt that he had left basilar pneumonia, for which he was started on vancomycin and Zosyn for antibiotic coverage. He was placed on Eliquis and diltiazem for his atrial fibrillation with rapid ventricular response per Cardiology. On 07/28 he had some episodes of vomiting with diffuse abdominal pain. He was found to likely have an ileus, with very little response to MiraLAX and Dulcolax. He did have a fecal impaction removal. Ileus did not resolve; therefore, Gastroenterology was consulted. He underwent a colonoscopy to decompress the colon on 08/02. He aspirated during the procedure. He was ultimately intubated, sent to ICU, and Pulmonology has been consulted. PAST MEDICAL HISTORY: Parkinson disease, hypertension, SVT. PAST SURGICAL HISTORY: Appendectomy and hernia repair. SOCIAL HISTORY: He is a resident at an extended care facility. ALLERGIES: No known drug allergies. REVIEW OF SYSTEMS: Unable to obtain from the patient as he is intubated and sedated. PHYSICAL EXAMINATION: This is an 79-year-old gentleman who is lying on the bed in ICU in no distress. Vital signs: Blood pressure is 130/65 with heart rates that are running from 70s to 100. Respirations are 10 to 12 with O2 saturations 85% to 89%. Eyes: Pupils are equal, round and react to light. Sclerae are anicteric. Neck is supple, with trachea midline.Cardiovascular: Regular rate and rhythm. S1 and S2 are appreciated. He is tachycardic. Pulmonary: He does have some rhonchi and wheezes scattered throughout. Chest rises and falls symmetrically with respiration. Respirations are per ventilator. Gastrointestinal: Abdomen is distended. It is firm, with hypoactive bowel sounds in all 4 quadrants. NG tube is in place, with brown secretions draining. Genitourinary: Cooper is patent with dark eduar urine draining. Neurologic: The patient is sedated with propofol per protocol. HEENT: The patient is intubated with a 7.6 tube, 23 cm at the lip. Ventilator PEEP is 12, FiO2 is 100%, tidal volume 600. LABORATORY DATA: WBC is 9.6 with hemoglobin 12.9, hematocrit 41.3 and platelets of 441,000. Sodium 137, potassium 3.1, BUN 42, creatinine 1.4 with a glucose of 130. PH is 7.38 with pCO2 of 53, pO2 of 69 and bicarbonate 28.7. This is on 100%, tidal volume 500, PEEP of 5, and rate of 16. DIAGNOSTIC DATA: Chest x-ray revealed interval placement of ET tube and NG tube. Worsening pulmonary venous congestion and infiltrate throughout the left lung, with possible development of a small left effusion. Abdominal x-ray revealed no free air. ASSESSMENT: 1. Acute hypoxemic respiratory failure. 2. Aspiration pneumonia. 3. Andree syndrome. 4. Parkinson disease. 5. Protein-calorie malnutrition. PLAN: 1. We will continue with mechanical ventilation. 2. Continue with propofol per protocol. 3. Antibiotic of vancomycin, Flagyl, Maxipime. 4. Continue steroids q.12 hours. 5. We will diurese with Lasix 40 IV b.i.d. 6. We will get a stool. 7. Bronchodilators. 8. Gastric acid suppression with Protonix. Get chest x-ray and ABGs in the morning. 9. The patient is Do Not Resuscitate/Allow Natural level 2. Thank you for allowing us to participate in this patient's care. Dictated by JC Yang for Lazarus Glasgow MD cc: JC Yang MD
[2019-08-03] MEDS: FLAGYL 500 MG/NS 500 MG/100 ML IVPB IV SCH (18:27)
[2019-08-03] MEDS ORDERED: LEVOPHED 8 MG in D5 1/2 NS 250 ML IV SCH (20:00)
[2019-08-03] MEDS: NAMENDA PO SCH (23:48)
[2019-08-03] MEDS: LASIX IV SCH (23:48)
[2019-08-04] MEDS: VANCOMYCIN ORAL SOLN NG SCH ×4 (03:30→21:13)
[2019-08-04] MEDS: DUONEB (A & A) INH SCH ×5 (04:07→19:45)
[2019-08-04 04:53] LABS: ALLEN TEST YES; BE 8.1 mmoll (-3.0-3.0); BLOOD TYPE ARTERIAL; HCO3-(ACT) 31.3 mmoll (20.0-26.0); METHB 1.2 % (0.0-1.5); O2(CT) 16.1 mL/dL (15.0-23.0); O2HB 97.6 % (95.0-99.0); PCO2(98.6) 41 mmHg (35-45); PO2(98.6) 214 mmHg (60-100); SAMPLE BLOOD; SAO2 100.1 % (95.0-100.0); SRATE 16 BPM; THB 11.4 g/dL (11.5-17.4); TVOL 600 mL
[2019-08-04 04:54] LABS: MODALITY VENTILATOR
[2019-08-04] MEDS: CARDIZEM PO SCH ×4 (05:03→21:13)
[2019-08-04] MEDS: MAXIPIME 1 GM in NS 50 ML IV SCH ×2 (05:03→16:53)
[2019-08-04] MEDS: SINEMET 25/100 PO SCH ×3 (05:04→21:14)
[2019-08-04] MEDS: SOLU-MEDROL IV SCH ×2 (05:04→16:53)
[2019-08-04] MEDS: NS IV SCH ×2 (05:04→14:01)
[2019-08-04] MEDS: DEPACON IV SCH ×2 (05:04→14:01)
[2019-08-04] MEDS: FLAGYL 500 MG/NS 500 MG/100 ML IVPB IV SCH ×4 (05:05→22:12)
[2019-08-04 07:00] LABS: BASO# 0.02 X1000 (0.0-0.2); BASO% 0.1 % (0.0-0.8); HEMATOCRIT 34.8 % (42.0-52.0); HEMOGLOBIN 10.8 g/dL (14.0-18.0); IMM GRAN# 0.07 X1000 (0.0-0.04); IMM GRAN% 0.3 % (0.0-0.5); LYMPH# 0.52 X1000 (1.2-3.4); LYMPH% 2.1 % (20.5-51.1); MCH 28.6 PG (27-31); MCV 92.3 FL (81-99); MONO# 0.41 X1000 (0.11-0.59); MONO% 1.6 % (1.7-9.3); MPV 9.3 FL (7.4-10.4); NEUT# 24.19 X1000 (1.4-6.5); NEUT% 95.9 % (42.2-75.2); PLT 307 X1000 (130-400); RBC 3.77 XMIL (4.7-6.1); RDW 14.5 % (11.5-14.5); WBC 25.21 X1000 (4.8-10.8)
[2019-08-04 07:36] LABS: CALCIUM 8.6 mg/dL (8.8-10.2); CREATININE 1.7 mg/dL (0.7-1.2); POTASSIUM 3.2 mmol/L (3.5-5.1)
[2019-08-04 07:38] LABS: BANDS 25 % (0-1); LYMPHS 1 % (21-51); MONO 1 % (1-9); SEGS 73 % (42-75)
--- NOTE | 2019-08-04 07:49 | Diag Imaging Result Doc PS360 ---
EXAM: CHEST-PORTABLE INDICATION: asp pneumonia TECHNIQUE: One view COMPARISON: 08/03/2019 FINDINGS: Support tubes and lines are in stable positions. There is continued worsening of the infiltrates seen throughout the left lung. There is probably a milder infiltrate at medial right lung base that is essentially stable. No other new consolidation is identified. Cardiac silhouette is stable. IMPRESSION: Interval worsening of consolidation throughout the left lung. Electronically signed by Ru Castillo 08/04/2019 7:46 AM
[2019-08-04] MEDS: MILK OF MAGNESIA PO SCH (08:31)
[2019-08-04] MEDS: LASIX IV SCH (08:31)
[2019-08-04] MEDS: MYLICON PO SCH ×4 (08:31→21:14)
[2019-08-04] MEDS: NEURONTIN PO SCH ×3 (08:31→21:14)
[2019-08-04] MEDS: ASPIRIN EC PO SCH (08:32)
[2019-08-04] MEDS: MIRALAX PO SCH ×2 (08:32→21:14)
[2019-08-04] MEDS: DIPRIVAN 1% 1,000 MG/100 ML BOTTLE IV SCH ×3 (10:16→21:15)
[2019-08-04] MEDS: PROTONIX IV SCH (12:23)
[2019-08-04] MEDS: SODIUM CHLORIDE 0.9% INJ SCH (12:23)
--- NOTE | 2019-08-04 16:26 | PROGRESS NOTE ---
DATE: 08/04/2019 SUBJECTIVE: Patient has no complaints. OBJECTIVE: Vital signs: Blood pressure is 116/47, heart rate of 86, respiratory rate of 18. Cardiovascular: Regular rate and rhythm. Pulmonary: Bilateral breath sounds diminished at bases. GI: Soft, nontender, nondistended. Bowel sounds are positive. LABORATORY DATA: White count is 25, hemoglobin and hematocrit 10 and 34, platelets 307,000. PH 7.5, pCO2 41, PaO2 214. Potassium 3.2, creatinine 1.7. PROBLEM LIST: 1. Acute hypoxic respiratory failure due to pneumonia versus volume overload, most likely combination of both. He has improved somewhat, much better than I anticipated based on yesterday's numbers. His PaO2 is climbed to 214, that was on 100%, from 69 yesterday, so we are working on weaning him. His chest x-ray looks a little worse as far as consolidation, but clinically he has improved. Appreciate urgent pulmonary evaluation. We were able to adjust his vent settings, and he improved significantly and continue pulmonary toilet and follow. I am going to decrease his diuretic just a little bit because of his bump in his kidney function. 2. Andree syndrome pseudo-obstruction with current issues. We will continue treatment. He is much less enlarged today, dilated. His abdominal exam is soft. He has got NG decompression. We will repeat his films tomorrow and follow. 3. Parkinsonism. I have cut down his Sinemet to twice a day, just because of the anticholinergic kind of effects on his gut. 4. Protein calorie malnutrition. He is on Clinimix. 5. Aspiration-type pneumonia possibly. We will continue cefepime and Flagyl. 6. Clostridium difficile. We are still waiting on a stool sample in order to get that situated because there was some evidence of colitis. DISPOSITION: Pending clinical status, but prognosis is guarded because of his age and comorbidities, but there is certainly a chance that things can turn around quickly. cc: Victor M Card MD
[2019-08-04] MEDS: POTASSIUM CHLORIDE 20 MEQ/SWI 20 MEQ/100 ML IVPB IV SCH ×2 (16:53→21:13)
--- NOTE | 2019-08-04 18:33 | PULMONOLOGY PROGRESS NOTE ---
DATE: 08/04/2019 SUBJECTIVE: The patient is sitting up in the bed. He has no complaints. OBJECTIVE.: Vital Signs: Blood pressure is 107/50 with heart rate of 89, respirations 16, temperature 98.2, with 02 saturations that are 96% to 97% on 70% FiO2. General: The patient is lying in the bed. He is sedated. He is in no distress. Cardiovascular: Regular rate and rhythm. S1 and S2 are appreciated. Pulmonary: He has rhonchi and wheezes scattered throughout. Chest rise and fall symmetric with respiration. Respirations are per ventilator. Gastrointestinal.: Abdomen is distended, soft with hypoactive bowel sounds in all 4 quadrants. NG tube is in place with brown secretions draining. Genitourinary: Cooper is patent with dark eduar urine draining. Neurologic: He is sedated on a propofol drip. LABS: WBCs 25.2 with hemoglobin 10.1, hematocrit 34.8, platelets of 307. Sodium 141, potassium 3.2, BUN 49, creatinine 1.7 with a glucose of 141. ABGs: PH of 7.5 with a pCO2 of 41, pO2 of 214, and bicarb of 31.3. Chest x-ray revealed worsening of consolidation throughout the left lung. ASSESSMENT: This is an 79-year-old gentleman with: 1. Acute hypoxemic respiratory failure. 2. Aspiration pneumonia. 3. [place] syndrome. 4. Parkinson's disease. 5. Protein calorie malnutrition. PLAN: 1. Will continue mechanical ventilation at present, SC/PC, FiO2 of 70%, rate of 16, tidal volume of 600 with PEEP of 12. 2. Continue propofol per protocol. 3. Continue vancomycin, Flagyl, Maxipime for antibiotic coverage. 4. Continue steroids every 12 hours. 5. Continue diuresis with Lasix 40 b.i.d. 6. Continue bronchodilators. 7. Gastric acid suppression with Protonix. 8. Code status. Patient is a DO NOT RESUSCITATE level 2. 9. Prognosis is remains poor. Dictated by JC Yang for Lazarus Glasgow MD cc: JC Yang MD
--- NOTE | 2019-08-04 20:02 | GENERAL SURGERY PROGRESS NOTE ---
DATE: 08/04/2019 SUBJECTIVE: Patient seems to be doing about the same per the nursing staff. He seems softer in his abdomen. OBJECTIVE: Vital Signs: Patient is currently afebrile. Pulse 88, blood pressure 105/49, O2 saturation 96% on the ventilator. General: Sedated on the ventilator. Cardiovascular: Regular rate and rhythm. Lungs: Referred airway noises. Abdomen: Soft, less tight, still distended. Extremities: Intact. LABORATORY: White blood cell count is 25, hematocrit 34. ABG reviewed. Chest x-ray: Worsening consolidation to the left lung. ASSESSMENT AND PLAN: 79-year-old gentleman with Andree-like syndrome with likely aspiration pneumonia. 1. [place]'s. At this time, he seems softer. Would recommend discontinuing the nasogastric tube decompression and monitoring him. His overall prognosis is probably poor to guarded at best. 2. Aspiration pneumonia at this time which is probably contributing to his leukocytosis. He is on broad-spectrum antibiotics. We will continue to monitor him. cc: Ricky Gould MD
[2019-08-04] MEDS: DULCOLAX PR SCH (21:13)
[2019-08-05] MEDS: DUONEB (A & A) INH SCH ×6 (00:05→19:55)
[2019-08-05] MEDS: CARDIZEM PO SCH ×4 (02:13→20:04)
[2019-08-05] MEDS: DEPACON IV SCH ×2 (02:13→14:36)
[2019-08-05] MEDS: NS IV SCH ×2 (02:13→14:36)
[2019-08-05] MEDS: VANCOMYCIN ORAL SOLN NG SCH ×4 (02:13→20:05)
[2019-08-05] MEDS: MAXIPIME 1 GM in NS 50 ML IV SCH ×3 (03:52→17:33)
[2019-08-05] MEDS: SOLU-MEDROL IV SCH ×3 (03:52→16:25)
[2019-08-05 04:37] LABS: ALLEN TEST YES; BE 6.1 mmoll (-3.0-3.0); BLOOD TYPE ARTERIAL; HCO3-(ACT) 29.7 mmoll (20.0-26.0); O2(CT) 17.4 mL/dL (15.0-23.0); O2HB 97.6 % (95.0-99.0); PCO2(98.6) 43 mmHg (35-45); PO2(98.6) 145 mmHg (60-100); SAMPLE BLOOD; SRATE 16 BPM; THB 12.5 g/dL (11.5-17.4); TVOL 600 mL; pH(98.6) 7.46 (7.35-7.45)
[2019-08-05] MEDS: FLAGYL 500 MG/NS 500 MG/100 ML IVPB IV SCH ×4 (04:37→22:47)
[2019-08-05 04:38] LABS: MODALITY VENTILATOR
--- NOTE | 2019-08-05 06:46 | GENERAL SURGERY PROGRESS NOTE ---
DATE: 08/05/2019 SUBJECTIVE: Discussed case with nurse. The patient seems to be about the same. He did have a liquid bowel movement, but it was very liquid and no real formed aspect to it. His chest x-ray looks like he has still got considerable consolidation on the left side. His abdominal film appears to have some gaseous distention. OBJECTIVE: Vital Signs: Patient is currently afebrile. Vital signs have been stable. General: Sedated on the ventilator. Cardiovascular: Regular rate and rhythm. Lungs: Coarse sounds noted and decreased breath sounds on the left. Abdomen: Soft, less distended. LABORATORY: Currently pending from this morning. Imaging as noted above. ASSESSMENT AND PLAN: An 79-year-old gentleman with [place]-like syndrome with possible aspiration pneumonia. 1. Andree's. At this time, continue current treatment. Continue NG tube decompression. He is having some bowel movements. They are checking him for C diff. We will just continue to monitor. 2. Aspiration pneumonia. At this time, continue the antibiotics as done by the Pulmonary team. cc: Ricky Gould MD
[2019-08-05 07:32] LABS: CALCIUM 8.7 mg/dL (8.8-10.2); CREATININE 1.6 mg/dL (0.7-1.2); MAGNESIUM 2.4 mg/dL (1.5-2.7); POTASSIUM 2.9 mmol/L (3.5-5.1)
[2019-08-05 07:35] LABS: BASO# 0.01 X1000 (0.0-0.2); BASO% 0.1 % (0.0-0.8); HEMATOCRIT 31.9 % (42.0-52.0); HEMOGLOBIN 9.9 g/dL (14.0-18.0); IMM GRAN# 0.08 X1000 (0.0-0.04); IMM GRAN% 0.4 % (0.0-0.5); LYMPH% 3.1 % (20.5-51.1); MCH 28.6 PG (27-31); MCV 92.2 FL (81-99); MONO% 3.1 % (1.7-9.3); MPV 9.8 FL (7.4-10.4); NEUT# 18.38 X1000 (1.4-6.5); NEUT% 93.3 % (42.2-75.2); PLT 305 X1000 (130-400); RBC 3.46 XMIL (4.7-6.1); RDW 14.8 % (11.5-14.5); WBC 19.67 X1000 (4.8-10.8)
--- NOTE | 2019-08-05 08:21 | Diag Imaging Result Doc PS360 ---
EXAM: ABDOMEN FLAT/UPRIGHT INDICATION: sbo TECHNIQUE: 2 views COMPARISON: 08/03/2019 FINDINGS: Gaseous distention of small bowel appears to have improved somewhat. Colonic distention is approximately stable. No large volume free abdominal gas is appreciated. An NG tube is in place with the tip projecting below the diaphragm and assumed to be in the lumen of the stomach. IMPRESSION: Interval slight improvement of gaseous distention of small bowel. Electronically signed by Ru Castillo 08/05/2019 8:18 AM
--- NOTE | 2019-08-05 08:22 | Diag Imaging Result Doc PS360 ---
EXAM: CHEST-PORTABLE INDICATION: dyspnea TECHNIQUE: One view COMPARISON: 08/04/2019 FINDINGS: Support tubes and lines are in stable positions. Extensive infiltrates seen throughout the left lung and milder infiltrate at the medial right lung base are approximately stable given slight differences in positioning. No new consolidation is identified. Cardiac silhouette is stable. IMPRESSION: Essentially stable chest. Electronically signed by Ru Castillo 08/05/2019 8:19 AM
[2019-08-05] MEDS: MILK OF MAGNESIA PO SCH (09:36)
[2019-08-05] MEDS: MIRALAX PO SCH ×2 (09:36→20:04)
[2019-08-05] MEDS: MYLICON PO SCH ×4 (09:37→20:04)
[2019-08-05] MEDS: NEURONTIN PO SCH ×2 (09:37→20:03)
[2019-08-05] MEDS: DULCOLAX PR SCH ×2 (09:38→20:04)
[2019-08-05] MEDS: SINEMET 25/100 PO SCH ×2 (09:38→20:04)
[2019-08-05] MEDS: LASIX IV SCH (09:38)
[2019-08-05 10:05] LABS: BANDS 2 % (0-1); LYMPHS 2 % (21-51); SEGS 94 % (42-75)
[2019-08-05] MEDS: DIPRIVAN 1% 1,000 MG/100 ML BOTTLE IV SCH ×3 (10:29→22:25)
[2019-08-05] MEDS: SODIUM CHLORIDE 0.9% INJ SCH (12:11)
[2019-08-05] MEDS: PROTONIX IV SCH (12:11)
--- NOTE | 2019-08-05 13:08 | GASTROENTEROLOGY PROGRESS NOTE ---
DATE: 08/05/2019 SUBJECTIVE: Mr. Wise remains intubated, and has an NG tube in place. He would open his eyes on calling his name. OBJECTIVE: Vital Signs: Temperature 97.7 degrees, pulse 75, breathing 21, and blood pressure 119/60. He is on ventilator. Abdomen: Slightly distended, but soft. It is nontender. He does have tympanic bowel sounds. LABORATORIES: Reviewed which showed WBC down to 19.67, hemoglobin 9.9, hematocrit 31.9, MCV 92.2, and platelets were 305. Potassium is 2.9. IMPRESSION: [place]'s most likely combination of things, hypokalemia, and Parkinson's disease. Other medications, immobility, all that is adding to the sluggish or non working colon. We need to continue to replenish potassium to keep it more than 3.5 if possible. In the meantime, he is going to be continued on antibiotic for his pneumonia. Since he did not have much of NG output, I would recommend to clamp it. In fact, use it for p.o. medications. Not much to add. I would be available if needed. cc: Gokul Ruffin MD
[2019-08-05] MEDS ORDERED: KLOR-CON NG ONE (15:34)
[2019-08-05] MEDS: CLINIMIX E 4.25%-5% SOLUTION 1,000 ML IV SCH (16:07)
[2019-08-05] MEDS: POTASSIUM CHLORIDE 20 MEQ/SWI 20 MEQ/100 ML IVPB IV SCH ×2 (16:22→19:43)
--- NOTE | 2019-08-05 16:39 | PROGRESS NOTE ---
DATE: 08/05/2019 SUBJECTIVE: Patient has no major complaints. OBJECTIVE: Blood pressure is 116/66, heart rate of 66, respiratory rate of 18, temperature was 97.8 degrees.Cardiovascular: Regular rate and rhythm. Pulmonary: Bilateral breath sounds clear to auscultation. GI: Soft, nontender. He is somewhat distended but a lot better than he has been. LABORATORY DATA: White count is down to 19, hemoglobin and hematocrit 9 and 31 platelets, 305,000, pH 7.46, pCO2 43, PaO2 145, potassium 2.9, creatinine 1.6. PROBLEM LIST: 1. Acute hypoxic respiratory failure. We will continue to monitor. He seems to be doing okay. He is down to 50%. Chest x-ray is stable, certainly not worse. Pulmonary is evaluating him. 2. [place] syndrome pseudoobstruction. His abdominal exam is good but there is still no bowel movements, although they are being recorded we still do not have a Clostridium difficile. 3. Parkinsonism. He is on Sinemet, we are going to continue to follow. 4. Protein calorie malnutrition. We will resume Clinimix, for some reason I thought he had been on Clinimix but I do not think he is on anything now, start tube feeds when available. 5. Volume overload. Will continue diuretics. His kidney function is stable, will continue. DISPOSITION: Prognosis guarded but again he is showing slow steady improvement as far as decreasing O2 requirement so will continue to monitor. cc: Victor M Card MD
--- NOTE | 2019-08-05 18:46 | PULMONOLOGY PROGRESS NOTE ---
DATE: 08/05/2019 SUBJECTIVE: Mr. Wise continues to be intubated and sedated. OBJECTIVE: Vital Signs: Blood pressure is 115/53, with a heart rate of 76, respirations are 19, temperature is 97.7 degrees, with O2 saturations 96 to 97 percent on 50% FiO2. Cardiovascular: Regular rate and rhythm. S1 and S2 are appreciated. Pulmonary: Breath sounds are clear with no increased work of breathing noted. Gastrointestinal: Abdomen is soft, distended, softer, with tympanic bowel sounds in all 4 quadrants. Labs: WBC is 19.6, with hemoglobin 9.9, hematocrit 31.9, and platelets of 305,000. Sodium 140, potassium 2.9, BUN 60, creatinine 1.6, with a glucose of 146. ABGs, pH is 7.46, with pCO2 of 43, PO2 of 145, and bicarb of 29.7. Chest x-ray is unchanged with extensive infiltrates throughout the left lung and infiltrates in the right middle lung. IMPRESSION: This is an 79-year-old gentleman with: 1. Acute hypoxemic respiratory failure. 2. Aspiration pneumonia. 3. Andree syndrome. 4. Parkinson's disease. 5. Protein calorie malnutrition. PLAN: 1. We will continue mechanical ventilation. At present, he is on PRVC, FiO2 at 50%, rate of 16, tidal volume 600, with PEEP of 12. 2. Continue propofol per protocol. 3. Continue current antibiotic regimen. 4. Continue steroids every 12 hours. 5. Continue diuresis with Lasix b.i.d. 6. Continue bronchodilators. 7. Gastric acid suppression with Protonix. 8. Code status. Patient is a Do Not Resuscitate level 2. 9. Prognosis remains poor. Dictated by JC Yang for Lazarus Glasgow MD cc: JC Yang MD
[2019-08-06] MEDS: DUONEB (A & A) INH SCH ×7 (00:10→23:26)
[2019-08-06] MEDS: DIPRIVAN 1% 1,000 MG/100 ML BOTTLE IV SCH ×3 (02:08→17:51)
[2019-08-06] MEDS: CARDIZEM PO SCH ×4 (02:09→21:18)
[2019-08-06] MEDS: CLINIMIX E 4.25%-5% SOLUTION 1,000 ML IV SCH ×2 (02:09→14:56)
[2019-08-06] MEDS: VANCOMYCIN ORAL SOLN NG SCH ×4 (02:10→21:19)
[2019-08-06] MEDS: NS IV SCH ×2 (02:16→14:55)
[2019-08-06] MEDS: DEPACON IV SCH ×2 (02:16→14:55)
[2019-08-06] MEDS: MAXIPIME 1 GM in NS 50 ML IV SCH ×2 (05:01→16:57)
[2019-08-06] MEDS: FLAGYL 500 MG/NS 500 MG/100 ML IVPB IV SCH ×3 (05:01→22:43)
[2019-08-06] MEDS: SOLU-MEDROL IV SCH ×2 (05:01→16:48)
[2019-08-06 05:48] LABS: ALLEN TEST YES; BE 4.4 mmoll (-3.0-3.0); BLOOD TYPE ARTERIAL; HCO3-(ACT) 28.3 mmoll (20.0-26.0); PCO2(98.6) 43 mmHg (35-45); PO2(98.6) 81 mmHg (60-100); SAMPLE BLOOD; SRATE 16 BPM; TVOL 600 mL; pH(98.6) 7.44 (7.35-7.45)
[2019-08-06 05:50] LABS: PHOSPHORUS 3.6 mg/dL (2.7-4.5)
[2019-08-06 05:51] LABS: MODALITY VENTILATOR
[2019-08-06 06:23] LABS: BASO# 0.01 X1000 (0.0-0.2); BASO% 0.1 % (0.0-0.8); EOS# 0.01 X1000 (0.0-0.7); EOS% 0.1 % (0.0-10.0); HEMATOCRIT 32.8 % (42.0-52.0); HEMOGLOBIN 10.2 g/dL (14.0-18.0); IMM GRAN# 0.08 X1000 (0.0-0.04); IMM GRAN% 0.6 % (0.0-0.5); LYMPH# 0.42 X1000 (1.2-3.4); LYMPH% 3.1 % (20.5-51.1); MCH 28.7 PG (27-31); MCHC 31.1 g/dL (33-37); MCV 92.1 FL (81-99); MONO# 0.41 X1000 (0.11-0.59); MPV 9.8 FL (7.4-10.4); NEUT# 12.84 X1000 (1.4-6.5); NEUT% 93.1 % (42.2-75.2); PLT 323 X1000 (130-400); RBC 3.56 XMIL (4.7-6.1); RDW 14.9 % (11.5-14.5); WBC 13.77 X1000 (4.8-10.8)
[2019-08-06 06:29] LABS: CALCIUM 8.9 mg/dL (8.8-10.2); CREATININE 1.2 mg/dL (0.7-1.2)
--- NOTE | 2019-08-06 06:34 | GENERAL SURGERY PROGRESS NOTE ---
DATE: 08/06/2019 SUBJECTIVE: Nursing staff reports he is about the same. They have clamped his NG tube. OBJECTIVE: Vital Signs: The patient is currently afebrile. Vital signs are stable. General Examination: Sedated, on the ventilator. Cardiovascular: More regular at this moment. Abdomen: Soft. Less distended. Some faint bowel sounds auscultated. Lungs: Referred airway noises. Laboratory: ABG reviewed. ASSESSMENT AND PLAN: An 79-year-old gentleman with Andree's-like syndrome and possible aspiration pneumonia. 1. Andree's. At this time, he seems to be improving. His nasogastric tube is clamped. We will continue to follow. 2. Aspiration pneumonia. At this time, defer to the hospitalist. cc: Ricky Gould MD
--- NOTE | 2019-08-06 06:51 | Diag Imaging Result Doc PS360 ---
CHEST-PORTABLE - 08/06/2019 INDICATION: dyspnea COMPARISON: 08/05/2019 FINDINGS: Support tubes are stable and in good position. There has been significant improvement in the bilateral infiltrates. There are residual infiltrates throughout the left lung diffusely, and a small focal infiltrate in the right lung base. Stable cardiomegaly. Stable low lung volumes. No large pleural effusion. IMPRESSION: Significant improvement from prior. Electronically signed by Leo Greenwood 08/06/2019 6:49 AM
[2019-08-06 08:13] LABS: EOS 1 % (1-10); LYMPHS 5 % (21-51); MONO 4 % (1-9); SEGS 89 % (42-75)
--- NOTE | 2019-08-06 08:35 | EKG Report ---
Test Performed on : 08/06/2019 08:17:53 AM Test Reason : CONFIRM RHYTHM Blood Pressure : / mmHG Vent. Rate : 062 BPM Atrial Rate : 062 BPM P-R Int : 148 ms QRS Dur : 102 ms QT Int : 452 ms P-R-T Axes : 018 -21 028 degrees QTc Int : 458 ms Sinus rhythm. with premature atrial complexes. / SVT Low voltage QRS Nonspecific T wave abnormality Abnormal ECG When compared with ECG of 03-AUG-2019 15:44, ST no longer depressed in Lateral leads T wave inversion no longer evident in Anterolateral leads Premature atrial complexes/ SVT now present Confirmed by Alfredo Campbell MD ([id number]) on 08/07/2019 2:00:19 PM
[2019-08-06] MEDS: MILK OF MAGNESIA PO SCH (11:25)
[2019-08-06] MEDS: MIRALAX PO SCH ×2 (11:25→21:18)
[2019-08-06] MEDS: NEURONTIN PO SCH ×2 (11:26→21:18)
[2019-08-06] MEDS: LASIX IV SCH (11:31)
[2019-08-06] MEDS: DULCOLAX PR SCH ×2 (11:31→21:19)
[2019-08-06] MEDS: SINEMET 25/100 PO SCH ×2 (11:33→21:18)
[2019-08-06] MEDS: PROTONIX IV SCH (11:34)
[2019-08-06] MEDS: MYLICON PO SCH ×4 (11:40→21:19)
[2019-08-06 13:55] LABS: ALLEN TEST YES; BE 6.4 mmoll (-3.0-3.0); BLOOD TYPE ARTERIAL; HCO3-(ACT) 29.8 mmoll (20.0-26.0); METHB 1.8 % (0.0-1.5); O2(CT) 13.8 mL/dL (15.0-23.0); O2HB 90.9 % (95.0-99.0); PCO2(98.6) 41 mmHg (35-45); PO2(98.6) 58 mmHg (60-100); SAMPLE BLOOD; SAO2 94.3 % (95.0-100.0); THB 10.8 g/dL (11.5-17.4); pH(98.6) 7.48 (7.35-7.45)
[2019-08-06 13:56] LABS: MODALITY VENTILATOR
--- NOTE | 2019-08-06 13:58 | Diag Imaging Result Doc PS360 ---
KUB ABDOMEN - 08/06/2019 INDICATION: distention COMPARISON: 08/05/2019 FINDINGS: There is been worsening in the extensive gas distention of the small bowel. No evidence of free air. No abnormal calcifications. IMPRESSION: Worsening small bowel obstruction. Electronically signed by Leo Greenwood 08/06/2019 1:56 PM
--- NOTE | 2019-08-06 15:33 | PROGRESS NOTE ---
DATE: 08/06/2019 SUBJECTIVE: Patient has no major complaints. OBJECTIVE: Vital Signs: Blood pressure 120/60, heart rate of 69, respiratory rate of 19, temperature 98.1 degrees. Cardiovascular: Regular rate and rhythm. Pulmonary: Bilateral breath sounds clear to auscultation. GI: Soft, nontender, nondistended. Bowel sounds were positive. LABORATORY DATA: White count is 13, hemoglobin and hematocrit 10 and 32, platelets 322,000. PH 7.48, pCO2 41, PaO2 58, he was on CPAP. Potassium is at 3. Creatinine is at 1.2. Magnesium of 3. PROBLEM LIST: 1. Acute hypoxic respiratory failure due to aspiration pneumonia, possible volume overload. Weaning oxygen. Chest x-ray seems to be getting better although his small bowel obstruction is getting worse. 2. [place] syndrome. Per x-ray today, his bowel obstruction is worse. There is more dilation. He has got a nasogastric tube down. We are not doing tube feeds, so we probably need to hold tube feeds now that I think about it because his bowel obstruction looks worse. I thought we could resume them, but I do not think he is going to tolerate them very well and we are still waiting for a stool sample. Stool samples have been recorded. There was a stool Clostridium difficile sent down yesterday, which was negative. Did not really need to repeat it then, but okay. 3. Protein calorie malnutrition. I think it can be Clinimix again with his x-rays being worse. We will have to hold off right now. cc: Victor M Card MD
[2019-08-06] MEDS: POTASSIUM CHLORIDE 20 MEQ/SWI 20 MEQ/100 ML IVPB IV SCH ×2 (15:42→17:50)
--- NOTE | 2019-08-06 16:38 | PULMONOLOGY PROGRESS NOTE ---
DATE: 08/06/2019 SUBJECTIVE: The patient is arousable. He will open his eyes. He will not follow commands. Baseline is not known to this practitioner. OBJECTIVE: Vital Signs: The patient has been afebrile for the last 24 hours. Blood pressure 122/56, heart rate 97, respiratory rate 23, oxygen saturation 95%, but gradually drifted down to 88% on a spontaneous breathing trial with the rate increased to 40. HEENT: Pupils are equal and reactive. Oropharynx appears clear but endotracheal tube is in place. Neck: Supple. Chest: Reveals crackles in both lung bases. Cardiac exam: Regular rate. Normal S1. Normal S2. Abdomen: [id number] distended with increased tympany. Extremities: Reveal trace to 1+ peripheral edema. LABORATORIES: Chest x-ray reveals decreased infiltrates bilaterally. Abdominal x-ray reveals increasing small bowel obstruction. Arterial blood gas following breathing trial, pH 7.48, pCO2 of 41, PO2 of 58. IMPRESSIONS: An 79-year-old with: 1. Hypoxemic respiratory failure. 2. Aspiration pneumonia. 3. Parkinson disease. 4. Protein calorie malnutrition. 5. Small bowel obstruction. DISCUSSION: An 79-year-old with problems outlined above. The patient has failed a spontaneous breathing trial. With worsening small bowel obstruction, I will place his ventilator to low intermittent suction. He will continue Clinimix. He is on propofol for sedation. I will re- evaluate him for extubation tomorrow. PLAN: 1. Continue mechanical ventilation. 2. Low intermittent suction. 3. Continue Flagyl for colitis seen colonic biopsies. 4. Continue Clinimix. CRITICAL CARE TIME: Time spent in critical care management, 30+ minutes. cc: Lazarus Glasgow MD
[2019-08-07] MEDS: MORPHINE IV PRN (00:23)
[2019-08-07] MEDS: CLINIMIX E 4.25%-5% SOLUTION 1,000 ML IV SCH ×3 (00:23→20:26)
[2019-08-07] MEDS: DIPRIVAN 1% 1,000 MG/100 ML BOTTLE IV SCH ×4 (00:23→21:47)
[2019-08-07] MEDS: DUONEB (A & A) INH SCH ×6 (03:26→22:40)
[2019-08-07] MEDS: CARDIZEM PO SCH ×4 (03:55→20:26)
[2019-08-07] MEDS: VANCOMYCIN ORAL SOLN NG SCH ×4 (03:55→20:27)
[2019-08-07] MEDS: DEPACON IV SCH ×2 (04:01→15:45)
[2019-08-07] MEDS: NS IV SCH ×2 (04:01→15:45)
[2019-08-07] MEDS: FLAGYL 500 MG/NS 500 MG/100 ML IVPB IV SCH ×4 (04:01→22:09)
[2019-08-07] MEDS: SOLU-MEDROL IV SCH (04:07)
[2019-08-07] MEDS: MAXIPIME 1 GM in NS 50 ML IV SCH ×2 (05:04→18:27)
[2019-08-07 05:48] LABS: ALLEN TEST YES; BE 4.4 mmoll (-3.0-3.0); BLOOD TYPE ARTERIAL; HCO3-(ACT) 28.3 mmoll (20.0-26.0); METHB 0.9 % (0.0-1.5); MODALITY VENTILATOR; O2(CT) 14.3 mL/dL (15.0-23.0); O2HB 93.6 % (95.0-99.0); PCO2(98.6) 39 mmHg (35-45); PO2(98.6) 66 mmHg (60-100); SAMPLE BLOOD; SAO2 96.3 % (95.0-100.0); SRATE 10 BPM; THB 10.8 g/dL (11.5-17.4); TVOL 600 mL; pH(98.6) 7.47 (7.35-7.45)
[2019-08-07 06:26] LABS: HEMATOCRIT 26.9 % (42.0-52.0); MCH 32.5 PG (27-31); MCHC 33.5 g/dL (33-37); MCV 97.1 FL (81-99); MPV 10.3 FL (7.4-10.4); RBC 2.77 XMIL (4.7-6.1); RDW 14.8 % (11.5-14.5); WBC 11.8 X1000 (4.8-10.8)
--- NOTE | 2019-08-07 06:30 | GENERAL SURGERY PROGRESS NOTE ---
DATE: 08/07/2019 SUBJECTIVE: Discussed case with the nurse. The patient did have a bowel movement yesterday but, apparently his abdominal films show worsening abdominal distention. His NG tube is placed back to low wall suction, but not much has come out. OBJECTIVE: Vital Signs: Patient is currently afebrile. Vital signs are stable. General: Sedated on the ventilator. Cardiovascular: Regular rate and rhythm. Lungs: Some coarse airway noises noted. Abdomen: Distended but likely increased from yesterday. LABORATORY: ABG's reviewed. ASSESSMENT AND PLAN: An 79-year-old gentleman with Andree's like syndrome. 1. Andree's. At this time, I agree with putting his NG tube back to low wall intermittent suction and continue to monitor him. His most recent KUB shows more of a small bowel distention. This could just be an ileus. Regardless, I do not think he would tolerate any kind of surgical intervention so I would just continue to monitor him for right now. 2. Multiple medical comorbidities currently being managed by the other specialties. cc: Ricky Gould MD
[2019-08-07 07:15] LABS: CALCIUM 8.4 mg/dL (8.8-10.2); CREATININE 1.2 mg/dL (0.7-1.2); MAGNESIUM 2.8 mg/dL (1.5-2.7); PHOSPHORUS 5.2 mg/dL (2.7-4.5); POTASSIUM 4.6 mmol/L (3.5-5.1); PREALBUMIN 31.9 mg/dL (20-40)
--- NOTE | 2019-08-07 07:43 | Diag Imaging Result Doc PS360 ---
EXAM: CHEST-PORTABLE HISTORY: vent patient TECHNIQUE: Single view COMPARISON: 08/06/2019 FINDINGS: No change in the endotracheal tube or nasogastric tube. The lungs are poorly expanded. There are dense infiltrates throughout the left lung on the current exam. There are smaller infiltrates in the mid right lung. The heart remains prominent. Small left pleural effusion. IMPRESSION: Interval worsening 'W Electronically signed by Joseluis Connors 08/07/2019 7:41 AM
[2019-08-07] MEDS: LASIX IV SCH ×2 (08:05→20:26)
[2019-08-07] MEDS: DULCOLAX PR SCH ×2 (08:06→20:27)
[2019-08-07] MEDS: MILK OF MAGNESIA PO SCH (08:06)
[2019-08-07] MEDS: NEURONTIN PO SCH ×2 (08:06→20:27)
[2019-08-07] MEDS: MYLICON PO SCH ×4 (08:06→20:28)
[2019-08-07] MEDS: SINEMET 25/100 PO SCH ×2 (08:06→20:26)
[2019-08-07] MEDS: MIRALAX PO SCH ×2 (08:11→20:26)
--- NOTE | 2019-08-07 11:52 | PULMONOLOGY PROGRESS NOTE ---
DATE: 08/07/2019 SUBJECTIVE: The patient remains poorly responsive. He remains on mechanical ventilation. OBJECTIVE: Vital Signs: The patient has been afebrile for the last 24 hours. Blood pressure 137/71, heart rate 80, respiratory rate 22, oxygen saturation 93%. HEENT: Pupils are equal. Oropharynx appears clear, but endotracheal tube is in position. Neck: Supple. Chest: The chest reveals coarse rhonchi bilaterally. Cardiac: S1-S2. Abdomen: The abdomen remains distended, with increased tympany. Extremities: Slightly cool to the touch. DIAGNOSTIC DATA: Chest x-ray reveals worsening infiltrate throughout the left lung. White blood count 11.8, hemoglobin 9.7, platelet count 337,000. Sodium 134, potassium 4.6, chloride 94, bicarbonate 24, BUN 72, creatinine 1.2, glucose 317. Arterial blood gas reveals a pH of 7.47, a pCO2 of 39, and a pO2 of 66. IMPRESSION: An 79-year-old with: 1. Hypoxemic respiratory failure. 2. Aspiration pneumonia. 3. Parkinson's disease, with component of dementia. 4. Small-bowel obstruction. 5. Protein calorie malnutrition. PLAN: 1. Continue mechanical ventilation. With worsening status he is not a candidate for weaning at this juncture. 2. Continue NG to low intermittent suction, with follow up abdominal film tomorrow. 3. Continue Clinimix. 4. Continue current antibiotics. 5. Repeat sputum culture. PROGNOSIS: The prognosis is guarded to poor given age and current physiologic status. TIME SPENT: Time spent in critical care management, 40 minutes. cc: Lazarus Glasgow MD
--- NOTE | 2019-08-07 14:40 | PROGRESS NOTE ---
DATE: 08/07/2019 SUBJECTIVE: The patient has no major complaints. OBJECTIVE: Blood pressure 137/71, heart rate of 80, respiratory rate of 22, temperature 98.3 degrees, 93% on 50%. Cardiovascular: Regular rate and rhythm. Pulmonary: Diminished throughout. GI: Soft, nontender, nondistended. Bowel sounds diminished but positive but his abdominal examination is still somewhat that he is distended but it is not terrible. Laboratory Data: White count is 11, hemoglobin and hematocrit 9 and 26, platelets 337,000. PH 7.47, pCO2 of 39, PaO2 of 66. Sodium 134, BUN 72, creatinine 1.2, phosphorus is 5.8. PROBLEM LIST: 1. Acute hypoxic respiratory failure due to aspiration pneumonia, possible volume overload. We are going to continue to treat. His x-ray looks worse today. I think he may benefit from some diuresis. He is on broad-spectrum antibiotics. Pulmonary is following. He is not ready for any extubation at this point with his x-ray worsening. He is still on 50% which is down from 100 initially where he had trouble keeping his saturations up but I think he may benefit from a little bit of diuretic. 2. [place] pseudoobstruction. I am going to bump up his diuretics. He is already on 40 daily. 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 We will repeat his films tomorrow. 3. Parkinsonism. We will continue his medications as tolerated. 4. Disposition pending improvement. Prognosis is still guarded. He is a Do Not Resuscitate 2 which is essentially nothing except for the ventilator. He is on some steroids which he had some pretty significant wheezing but we will probably back down on that a little bit because I am not entirely sure. He is not having wheezing now. Disposition pending clinical status but again, his prognosis is overall guarded. cc: Victor M Card MD
[2019-08-07] MEDS: PROTONIX IV SCH (15:44)
[2019-08-08] MEDS: DIPRIVAN 1% 1,000 MG/100 ML BOTTLE IV SCH ×6 (03:03→21:53)
[2019-08-08] MEDS: VANCOMYCIN ORAL SOLN NG SCH ×4 (03:04→20:04)
[2019-08-08] MEDS: CARDIZEM PO SCH ×4 (03:04→20:03)
[2019-08-08] MEDS: DEPACON IV SCH ×2 (03:06→14:02)
[2019-08-08] MEDS: NS IV SCH ×2 (03:06→14:02)
[2019-08-08] MEDS: FLAGYL 500 MG/NS 500 MG/100 ML IVPB IV SCH ×4 (03:07→21:53)
[2019-08-08] MEDS: DUONEB (A & A) INH SCH ×5 (03:35→19:30)
[2019-08-08 04:47] LABS: HEMATOCRIT 32.5 % (42.0-52.0); HEMOGLOBIN 10.2 g/dL (14.0-18.0); MCH 29.3 PG (27-31); MCHC 31.4 g/dL (33-37); MCV 93.4 FL (81-99); MPV 9.6 FL (7.4-10.4); RBC 3.48 XMIL (4.7-6.1); RDW 14.9 % (11.5-14.5); WBC 8.64 X1000 (4.8-10.8)
[2019-08-08 05:00] LABS: ALLEN TEST YES; BE 7.7 mmoll (-3.0-3.0); BLOOD TYPE ARTERIAL; HCO3-(ACT) 30.9 mmoll (20.0-26.0); METHB 1.4 % (0.0-1.5); MODALITY VENTILATOR; O2(CT) 14.6 mL/dL (15.0-23.0); O2HB 95.6 % (95.0-99.0); PCO2(98.6) 43 mmHg (35-45); PO2(98.6) 87 mmHg (60-100); SAMPLE BLOOD; SAO2 98.5 % (95.0-100.0); SRATE 10 BPM; THB 10.8 g/dL (11.5-17.4); TVOL 600 mL; pH(98.6) 7.48 (7.35-7.45)
[2019-08-08] MEDS: MAXIPIME 1 GM in NS 50 ML IV SCH ×2 (05:34→18:04)
[2019-08-08 05:39] LABS: CALCIUM 8.6 mg/dL (8.8-10.2); CREATININE 1.2 mg/dL (0.7-1.2); POTASSIUM 4.6 mmol/L (3.5-5.1)
--- NOTE | 2019-08-08 05:49 | GENERAL SURGERY PROGRESS NOTE ---
DATE: 08/08/2019 SUBJECTIVE: The patient seems to be doing about the same. Nursing staff reports no major changes. He apparently is not a good candidate for weaning trials. OBJECTIVE: Vital Signs: The patient is currently afebrile. Vital signs are stable. General: Sedated on the ventilator. Cardiovascular: Regular rate and rhythm. Lungs: Coarse sounds noted. Abdomen: Soft, some distention, but overall it is better than it was. LABORATORY: ABG reviewed. White blood cell count reviewed. ASSESSMENT AND PLAN: An 79-year-old gentleman with Andree's-like syndrome versus small-bowel obstruction. Andree's versus small-bowel: At this time we will continue current treatment. He is having some small bowel movements. Radiographically, he seems to be doing about the same. From a surgical point of view, just would continue to monitor him. cc: Ricky Gould MD
--- NOTE | 2019-08-08 06:58 | Diag Imaging Result Doc PS360 ---
CHEST-PORTABLE - 08/08/2019 INDICATION: dyspnea COMPARISON: 08/07/2019 FINDINGS: Support tubes are stable and in good position. Stable dense infiltrate diffusely throughout the left lung. Stable patchy infiltrate at the perihilar right lung. Stable low lung volumes. Stable cardiomegaly. IMPRESSION: No change from prior. Electronically signed by Leo Greenwood 08/08/2019 6:56 AM
--- NOTE | 2019-08-08 06:58 | Diag Imaging Result Doc PS360 ---
ABDOMEN FLAT/UPRIGHT - 08/08/2019 INDICATION: sbo COMPARISON: 08/06/2019 FINDINGS: There is a nasogastric tube in good position in the stomach. There has been significant improvement in the numerous gas-distended loops of small bowel. There is significant colon gas now. No free air. IMPRESSION: Significant improvement in the small bowel obstruction. Electronically signed by Leo Greenwood 08/08/2019 6:55 AM
[2019-08-08] MEDS: CLINIMIX E 4.25%-5% SOLUTION 1,000 ML IV SCH ×2 (08:00→17:16)
[2019-08-08] MEDS ORDERED: NS 250 ML ONE (08:57)
[2019-08-08] MEDS: MIRALAX PO SCH ×2 (09:01→20:03)
[2019-08-08] MEDS: DULCOLAX PR SCH ×2 (09:01→20:03)
[2019-08-08] MEDS: MYLICON PO SCH ×4 (09:01→20:03)
[2019-08-08] MEDS: MILK OF MAGNESIA PO SCH (09:01)
[2019-08-08] MEDS: NEURONTIN PO SCH ×2 (09:01→20:03)
[2019-08-08] MEDS: SINEMET 25/100 PO SCH ×2 (09:01→20:03)
[2019-08-08] MEDS: SOLU-MEDROL IV SCH (09:02)
[2019-08-08] MEDS: LASIX IV SCH ×2 (09:17→20:02)
[2019-08-08 09:37] LABS: HEMOGLOBIN A1C 5.7 % (4.8-6.0)
[2019-08-08 09:53] LABS: INR 1.16; PROTIME 14.9 Seconds (11.0-16.0)
[2019-08-08] MEDS: PROTONIX IV SCH (13:07)
--- NOTE | 2019-08-08 14:44 | PROGRESS NOTE ---
DATE: 08/08/2019 INTERVAL HISTORY: The patient remains intubated and sedated. Afebrile overnight. No acute events. REVIEW OF SYSTEMS: Unable to obtain secondary to patient's mental status. LABS: WBC 8.6, hemoglobin 10.2, hematocrit 32.5, platelets 299,000. INR 1.16. ABG with pH 7.48, pCO2 of 43, PO2 of 87 on the ventilator. Sodium 142, potassium 4.6, BUN 80, creatinine 1.2, glucose 138 to 169. IMAGING: Chest x-ray with essentially stable dense infiltrates throughout the left lung and less dense infiltrates on the right. Abdomen with fairly significant improvement in small-bowel obstruction. VITALS: T-max 99.1 degrees, pulse 69, respirations 20, blood pressure 107/65, O2 saturation 93% on the ventilator. PHYSICAL EXAMINATION: General: No acute distress. Intubated and sedated. Vitals: As above. HEENT: Normocephalic, atraumatic. Cardiovascular: Regular rate and rhythm. Pulmonary: Significantly decreased breath sounds throughout. A few scattered rhonchi. Abdomen: Minimally distended. Nontender. Bowel sounds markedly decreased. Extremities: Peripheral pulses intact. There is 2+ lower extremity edema. A little bit of upper extremity edema as well, slightly worse on the left. Neurologic: Examination limited by mental status but pupils are equal, round, and reactive to light. No facial asymmetry. Psychiatric: Patient is sedated. : Cooper catheter in place. ASSESSMENT AND PLAN: 1. Acute hypoxic respiratory failure, pneumonia, likely chronic diastolic congestive heart failure. The patient's respiratory status is roughly stable. Still requiring fairly high oxygenation with oxygen requirements 50 to 60 percent on the ventilator. Decent diuresis yesterday but not much effect on his lungs. Kidneys appeared to be tolerating it though, so we will go and continue diuresis for now and monitor. On antibiotics with vancomycin, cefepime, and Flagyl, which we will continue for now. 2. Small bowel obstruction, improving a little bit on most recent imaging. If it continues to improve, hopefully, we will be able to start him on some tube feeds in the next day or two. Surgery on board and assisting. 3. Acute kidney injury on likely chronic kidney disease 3. The patient has had creatinine as low as 0.9, but appears to usually hang around 1.2, which is what he has been at for the last 3 days. Continue to monitor closely in the setting of aggressive diuresis. 4. Hyperglycemia. Patient with no previous diagnosis of diabetes but does have some fairly significant hyperglycemia here. May be steroid-induced, but we will check an A1c, trend his sugars, and start on sliding scale if needed. 5. Parkinson's disease. Once he is able to take oral intake, we will restart his home Sinemet. 6. Benign prostatic hypertrophy. Restart home Flomax once he is able to take oral intake.
--- NOTE | 2019-08-08 15:41 | Diag Imaging Result Doc PS360 ---
EXAM: CHEST-PORTABLE HISTORY: PICC line placement TECHNIQUE: Single view COMPARISON: 6:04 AM FINDINGS: Interval placement of a right-sided PICC line. The tip lies near the junction of the superior vena cava and right atrium. No change in the endotracheal tube or nasogastric tube. There are infiltrates throughout the left lung which persists. IMPRESSION: Right-sided PICC line in good position Electronically signed by Joseluis Connors 08/08/2019 3:38 PM
--- NOTE | 2019-08-08 16:11 | PULMONOLOGY PROGRESS NOTE ---
DATE: 08/08/2019 SUBJECTIVE: The patient remains sedated and on mechanical ventilation. He has mild increased work of breathing. OBJECTIVE: HEENT: Pupils are equal and react to light. Oropharynx appears clear. Neck is supple. Chest reveals diffuse rhonchi with decreased breath sounds in the left lung. Cardiac Examination: S1, S2. Abdomen is obese and soft. Extremities reveal 1+ peripheral edema. Laboratories: Arterial blood gas reveals a pH of 7.48, pCO2 of 43, PO2 of 87, on a respiratory rate of 10 and an FIO2 of 600. Microbiology reveals no growth in the sputum. White blood count 8.6, hemoglobin 10.2, platelet count 299,000. Glucose 165. Chest x-ray, no change. IMPRESSION: An 79-year-old with: 1. Acute hypoxemic respiratory failure. 2. Aspiration pneumonia. 3. Parkinson's disease with dementia. 4. Resolving small-bowel obstruction. 5. Protein calorie malnutrition. PLAN: 1. Continue mechanical ventilation. He is not a candidate for weaning or extubation today. 2. Initiate tube feeds with improvement in abdomen and radiographic status of the abdomen. 3. Continue current antibiotics. 4. Overall prognosis is guarded to poor. cc: Lazarus Glasgow MD
[2019-08-09] MEDS: NS IV SCH ×2 (02:04→14:00)
[2019-08-09] MEDS: CARDIZEM PO SCH ×4 (02:04→21:40)
[2019-08-09] MEDS: DEPACON IV SCH ×2 (02:04→14:00)
[2019-08-09] MEDS: DIPRIVAN 1% 1,000 MG/100 ML BOTTLE IV SCH ×5 (02:05→21:38)
[2019-08-09] MEDS: VANCOMYCIN ORAL SOLN NG SCH ×4 (02:06→21:41)
[2019-08-09] MEDS: DUONEB (A & A) INH SCH ×6 (03:35→23:45)
[2019-08-09 05:02] LABS: ALLEN TEST YES; BE 6.3 mmoll (-3.0-3.0); BLOOD TYPE ARTERIAL; HCO3-(ACT) 29.7 mmoll (20.0-26.0); METHB 1.2 % (0.0-1.5); O2HB 93.7 % (95.0-99.0); PCO2(98.6) 41 mmHg (35-45); PO2(98.6) 71 mmHg (60-100); SAMPLE BLOOD; SAO2 96.4 % (95.0-100.0); SRATE 10 BPM; THB 17.5 g/dL (11.5-17.4); TVOL 600 mL; pH(98.6) 7.48 (7.35-7.45)
[2019-08-09] MEDS: FLAGYL 500 MG/NS 500 MG/100 ML IVPB IV SCH ×4 (05:02→21:39)
[2019-08-09] MEDS: MAXIPIME 1 GM in NS 50 ML IV SCH ×2 (05:02→17:12)
[2019-08-09 05:03] LABS: MODALITY VENTILATOR
[2019-08-09 05:36] LABS: HEMATOCRIT 33.9 % (42.0-52.0); HEMOGLOBIN 10.5 g/dL (14.0-18.0); MCH 29.1 PG (27-31); MCV 93.9 FL (81-99); MPV 10.2 FL (7.4-10.4); RBC 3.61 XMIL (4.7-6.1); RDW 14.9 % (11.5-14.5)
[2019-08-09 05:59] LABS: CALCIUM 8.2 mg/dL (8.8-10.2); CREATININE 1.3 mg/dL (0.7-1.2); MAGNESIUM 2.8 mg/dL (1.5-2.7); PHOSPHORUS 4.5 mg/dL (2.7-4.5)
--- NOTE | 2019-08-09 06:01 | GENERAL SURGERY PROGRESS NOTE ---
DATE: 08/09/2019 SUBJECTIVE: Patient seems to be doing about the same. Nursing staff reports no major changes. He has had tube feeds going currently, but his residuals have been over 100 and he is only getting tube feeds at 20 mL/h. His abdominal film showed significant improvement yesterday. OBJECTIVE: Vital Signs: Patient is currently afebrile. Vital signs are stable. General: Sedated on the ventilator. Cardiovascular: Relatively regular, but there is some PACs. Lungs: Coarse sounds noted. Abdomen: Soft, a little more distended and a little tighter today compared to yesterday. ASSESSMENT AND PLAN: An 79-year-old gentleman with small-bowel obstruction versus [place]'s. Small bowel obstruction versus [place]'s. At this time, continue current treatment. Unsure how well he is tolerating tube feeds, so we will need to continue to monitor his residuals. If his residuals are over 200 and he is only getting 20 mL/h., I am concerned that he is not probably tolerating his tube feeds at all. We will continue to monitor him. cc: Ricky Gould MD
--- NOTE | 2019-08-09 06:49 | Diag Imaging Result Doc PS360 ---
CHEST-PORTABLE - 08/09/2019 INDICATION: vent protocol COMPARISON: 08/08/2019 FINDINGS: Support lines and tubes are stable and in good position. Stable diffuse infiltrate throughout the left lung. Stable hazy infiltrate in the right upper lobe. Heart size remains normal. Lung volumes are low. IMPRESSION: No change from prior. Electronically signed by Leo Greenwood 08/09/2019 6:47 AM
[2019-08-09] MEDS: MILK OF MAGNESIA PO SCH (08:01)
[2019-08-09] MEDS: SOLU-MEDROL IV SCH (08:01)
[2019-08-09] MEDS: MIRALAX PO SCH ×2 (08:02→21:39)
[2019-08-09] MEDS: DULCOLAX PR SCH ×2 (08:02→21:39)
[2019-08-09] MEDS: MYLICON PO SCH ×4 (08:02→21:43)
[2019-08-09] MEDS: NEURONTIN PO SCH ×2 (08:02→21:40)
[2019-08-09] MEDS: SINEMET 25/100 PO SCH ×2 (08:02→21:39)
[2019-08-09] MEDS: LASIX IV SCH ×2 (08:03→21:38)
[2019-08-09] MEDS: CLINIMIX E 4.25%-5% SOLUTION 1,000 ML IV SCH (09:12)
[2019-08-09] MEDS: PROTONIX IV SCH (13:05)
--- NOTE | 2019-08-09 14:00 | PROGRESS NOTE ---
DATE: 08/09/2019 INTERVAL HISTORY: The patient remains intubated and sedated. Currently on tube feeds, but last residual was about 150. He is only on 20 an hour so not sure how well he is tolerating that. He remains afebrile. No acute events overnight. REVIEW OF SYSTEMS: Unable to obtain secondary to patient mental status. LABS: WBC 9, hemoglobin 10.5, hematocrit 33.9, platelets 283,000. ABG with pH 7.48, pCO2 41, PO2 71 on ventilator with 70% oxygen. Sodium 143, potassium 4, BUN 88, creatinine 1.3, glucose 148 to 179. VITAL SIGNS: T-max 98.7 degrees, pulse 71, respirations 19, blood pressure 112/67. O2 saturation 94% on ventilator with 70% oxygen. IMAGING STUDIES: Chest x-ray, approximately the same with diffuse infiltrates throughout the left lung and some in the right upper lung as well. PHYSICAL EXAMINATION: General: No acute distress, ill appearing, intubated, sedated. Vitals: As above. HEENT: Normocephalic, atraumatic. NG and ET tubes in place. Cardiovascular: Regular rate and rhythm currently. Pulmonary: Still with moderately decreased breath sounds throughout and fairly diffuse rhonchi, perhaps a little more on the left than the right. Abdomen: Minimally distended, nontender. Bowel sounds remain decreased. Extremities: Peripheral pulses intact, 2+ lower extremity edema and trace upper extremity edema, roughly stable. Neurologic: Limited by mental status and sedation, but pupils equal, round, reactive to light. No facial asymmetry. No clear focal deficits. Psychiatric: Patient is sedated, sedated. : Cooper catheter remains in place. ASSESSMENT AND PLAN: 1. Acute hypoxic respiratory failure, pneumonia, likely chronic diastolic congestive heart failure. O2 oxygen slightly increased today, but overall respiratory status about the same. Some diuresis yesterday but not as good as the day before. Thus far, the diuresis has not seemed to have made much of a difference to his lung function. We will continue Lasix 60 b.i.d. for 1 more day to see if we get good effect but will likely stop that tomorrow if does not appear to be doing anything. The patient remains on antibiotics with vancomycin and cefepime, which we will continue. Prognosis remains guarded. We will also continue steroids although I am not really sure how much it is doing. He really has not had any wheezing to speak of. 2. Likely small bowel obstruction versus [place]'s. Most recent abdominal film appear to be improving, so patient was started on tube feeds at a lower rate. Residuals approximately 150 this morning, though, despite low rate of approximately 20, so not sure how well he is going to tolerate tube feeds. If residuals continue to trend up, by any significant amount, we will have to stop those. 3. Acute kidney injury on likely chronic kidney disease 3. Baseline somewhere between 0.9 and 1.2. Has been essentially at baseline the last 3 to 4 days. We will continue to monitor in the setting of diuresis. 4. Hyperglycemia. No previous diagnosis of diabetes. A1c within normal limits. Suspect this is steroid induced. We will continue to monitor and start sliding scale as needed. 5. Parkinson's. Restart Sinemet once he is able to take p.o. Continue home valproate. 6. Benign prostatic hypertrophy. Will restart home Flomax once he is able to take p.o. Continue Cooper for now.
--- NOTE | 2019-08-09 19:24 | PULMONOLOGY PROGRESS NOTE ---
DATE: 08/09/2019 SUBJECTIVE: The patient is sedated. He does respond to painful stimuli. OBJECTIVE: Vital Signs: The patient has been afebrile for the last 24 hours. Blood pressure 113/62, heart rate 86, respiratory rate 21, oxygen saturation 96% on 70% FiO2. HEENT: Pupils are equal and reactive. Oropharynx appears clear. Neck: Supple. Chest: Reveals coarse rhonchi bilaterally with decreased breath sounds in the left chest. Cardiac exam: S1, S2. Abdomen: Soft. Extremities: Reveal 1 to 2+ peripheral edema. IMAGING: Chest x-ray reveals diffuse infiltrate predominantly in the left lung with some minor infiltrate in the right upper lobe. LABORATORY DATA: White blood count 9.0, hemoglobin 10.5, platelet count 283,000. Arterial blood gas reveals a pH of 7.48, pCO2 of 41, pO2 of 71. MICROBIOLOGY: Sputum culture is pending. IMPRESSION: An 79-year-old with: 1. Acute hypoxemic respiratory failure. 2. Parkinson disease with dementia. 3. Aspiration pneumonia. 4. Resolving small-bowel obstruction. 5. Protein calorie malnutrition. DISCUSSION: An 79-year-old with problems outlined above. His prognosis remains poor. He has not had clinical improvement over the last 48 to 72 hours. PLAN: 1. Continue mechanical ventilation and begin weaning as soon as radiographic and clinical status improves. 2. Continue tube feeds as tolerated. He is having slight increase in residuals. 3. Continue current antibiotics. 4. Prognosis is poor. If his son elects to withdraw support, that can be initiated. TIME SPENT IN CRITICAL CARE MANAGEMENT: 35 minutes. cc: Lazarus Glasgow MD
[2019-08-10] MEDS: DIPRIVAN 1% 1,000 MG/100 ML BOTTLE IV SCH ×7 (00:35→22:38)
[2019-08-10] MEDS: VANCOMYCIN ORAL SOLN NG SCH ×4 (01:07→21:34)
[2019-08-10] MEDS: CLINIMIX E 4.25%-5% SOLUTION 1,000 ML IV SCH ×3 (01:07→13:43)
[2019-08-10] MEDS: CARDIZEM PO SCH ×4 (01:07→21:33)
[2019-08-10] MEDS: DEPACON IV SCH ×2 (02:04→14:05)
[2019-08-10] MEDS: NS IV SCH ×2 (02:04→14:05)
[2019-08-10] MEDS: DUONEB (A & A) INH SCH ×5 (03:25→19:39)
[2019-08-10] MEDS: FLAGYL 500 MG/NS 500 MG/100 ML IVPB IV SCH ×4 (03:35→21:33)
[2019-08-10 04:53] LABS: ALLEN TEST YES; BE 8.8 mmoll (-3.0-3.0); BLOOD TYPE ARTERIAL; HCO3-(ACT) 31.8 mmoll (20.0-26.0); METHB 1.1 % (0.0-1.5); O2(CT) 14.7 mL/dL (15.0-23.0); O2HB 95.8 % (95.0-99.0); PCO2(98.6) 46 mmHg (35-45); PO2(98.6) 87 mmHg (60-100); SAMPLE BLOOD; SAO2 98.4 % (95.0-100.0); SRATE 10 BPM; THB 10.8 g/dL (11.5-17.4); TVOL 600 mL; pH(98.6) 7.47 (7.35-7.45)
[2019-08-10 04:54] LABS: MODALITY VENTILATOR
[2019-08-10] MEDS: MAXIPIME 1 GM in NS 50 ML IV SCH ×2 (05:04→18:16)
--- NOTE | 2019-08-10 06:17 | GENERAL SURGERY PROGRESS NOTE ---
DATE: 08/10/2019 SUBJECTIVE: Nursing staff reports his residuals have gone up, and have been over 300. Essentially, what tube feeds would have been, and the residuals look like tube feeds. His tube feeds have been on hold. OBJECTIVE: Vital Signs: Patient is currently afebrile. Vital signs are stable. General: Sedated on the ventilator. Cardiovascular: Mostly regular right now. Lungs: Coarse sounds noted. Abdomen: More distended today, and more tympanic compared to yesterday. LABORATORY: ABG reviewed. Abdominal film pending for this morning. ASSESSMENT AND PLAN: An 79-year-old gentleman with small bowel obstruction versus Andree's. Small bowel obstruction versus Andree's. At this time, we will place his NG tube to low water intermittent suction and stop his tube feeds. He does not seem to be tolerating it. His amount of residuals essentially mean that he has not removed any of his tube feeds through. We will continue to follow while he is in the hospital. cc: MD GRANT Noonan
[2019-08-10 06:23] LABS: BASO# 0.04 X1000 (0.0-0.2); BASO% 0.4 % (0.0-0.8); HEMATOCRIT 35.5 % (42.0-52.0); HEMOGLOBIN 10.7 g/dL (14.0-18.0); IMM GRAN# 0.24 X1000 (0.0-0.04); IMM GRAN% 2.3 % (0.0-0.5); LYMPH# 0.68 X1000 (1.2-3.4); LYMPH% 6.5 % (20.5-51.1); MCH 28.2 PG (27-31); MCHC 30.1 g/dL (33-37); MCV 93.7 FL (81-99); MONO# 0.41 X1000 (0.11-0.59); MONO% 3.9 % (1.7-9.3); MPV 10.5 FL (7.4-10.4); NEUT# 9.06 X1000 (1.4-6.5); NEUT% 86.9 % (42.2-75.2); PLT 281 X1000 (130-400); RBC 3.79 XMIL (4.7-6.1); RDW 14.8 % (11.5-14.5); WBC 10.43 X1000 (4.8-10.8)
--- NOTE | 2019-08-10 06:48 | Diag Imaging Result Doc PS360 ---
EXAM: KUB ABDOMEN INDICATION: SBO TECHNIQUE: One view COMPARISON: 08/08/2019 FINDINGS: The NG tube is in stable position. There is worsening gaseous distention of the transverse colon. However, there is now no significant small bowel distention. No large volume free abdominal gas is identified on this limited single view. IMPRESSION: Worsened gaseous distention of the transverse colon but no significant small bowel distention identified on the current study. Electronically signed by Ru Castillo 08/10/2019 6:46 AM
--- NOTE | 2019-08-10 06:54 | Diag Imaging Result Doc PS360 ---
EXAM: CHEST-PORTABLE INDICATION: intubated TECHNIQUE: One view COMPARISON: 08/09/2019 FINDINGS: Support tubes and lines are in stable positions. Diffuse hazy infiltrates throughout the left lung and infiltrate at the right upper lobe are stable. No new consolidation is identified. Cardiac silhouette is stable. IMPRESSION: Stable chest. Electronically signed by Ru Castillo 08/10/2019 6:52 AM
[2019-08-10 07:04] LABS: CALCIUM 8.2 mg/dL (8.8-10.2); CREATININE 1.4 mg/dL (0.7-1.2); POTASSIUM 4.3 mmol/L (3.5-5.1)
[2019-08-10] MEDS: SINEMET 25/100 PO SCH ×2 (08:06→21:33)
[2019-08-10] MEDS: DULCOLAX PR SCH ×2 (08:06→21:31)
[2019-08-10] MEDS: LASIX IV SCH ×2 (08:06→21:33)
[2019-08-10] MEDS: MIRALAX PO SCH ×2 (08:06→21:31)
[2019-08-10] MEDS: MILK OF MAGNESIA PO SCH (08:06)
[2019-08-10] MEDS: SOLU-MEDROL IV SCH (08:07)
[2019-08-10] MEDS: NEURONTIN PO SCH ×2 (08:07→21:32)
[2019-08-10] MEDS: MYLICON PO SCH ×4 (08:08→21:32)
[2019-08-10] MEDS: LOPRESSOR IV PRN ×4 (09:01→22:39)
--- NOTE | 2019-08-10 09:55 | Extremity Venous Study ---
PROCEDURE NAME: Venous U/S Left Arm - 08/08/2019 REFERRING PHYSICIAN: Dr. Moreria. READING PHYSICIAN: Dr. Rodriguez. DEPUTY GRAND JURY: Yvrose. INDICATION: Left arm swelling. FINDINGS: The deep and superficial veins of the left upper extremity were imaged throughout their course. They are compressible, patent without thrombus. INTERPRETATION: No DVT or SVT of the left upper extremity. cc: Chip Rodriguez MD
--- NOTE | 2019-08-10 09:56 | EKG Report ---
Test Performed on : 08/10/2019 08:56:48 AM Test Reason : TACHY Blood Pressure : / mmHG Vent. Rate : 172 BPM Atrial Rate : 133 BPM P-R Int : 000 ms QRS Dur : 086 ms QT Int : 284 ms P-R-T Axes : 000 -27 142 degrees QTc Int : [address] & T wave abnormality, consider anterolateral ischemia Abnormal ECG No previous ECGs available Confirmed by Yvette VITAL, Dayton Barrera ([id number]) on 08/14/2019 9:36:56 AM
[2019-08-10] MEDS: SODIUM CHLORIDE 0.9% INJ SCH (12:07)
[2019-08-10] MEDS: PROTONIX IV SCH (12:07)
--- NOTE | 2019-08-10 12:57 | PROGRESS NOTE ---
DATE: 08/10/2019 SUBJECTIVE: This morning Mr. Wise continues to be in the Critical Care Unit. He is currently intubated. Per the nursing staff, he has not been tolerating his tube feedings, and this was discontinued early on today and he was hooked to suctioning. I understand a lot of the tube feeding just came out. OBJECTIVELY: Vital Signs: Current vital signs, blood pressure is 101/80, pulse of 170, respirations 22, temperature is 98.9 degrees. The patient is saturating 98%. General: Mr. Wise is an 79-year-old male. He is in bed, currently intubated and sedated. Mucosa is pink and moist. Anicteric. Acyanotic. Neck: Supple. Respiratory System: There are transmitted sounds from the ventilator. There are some crackles in the posterior lung [place]. Cardiovascular: Very tachycardic, feels to be irregular, but no murmurs. Gastrointestinal: The abdomen is soft, protuberant. Some edema in the lateral aspect of the abdominal wall. Extremities: About 2+ pedal edema. Central Nervous System: Patient is intubated and sedated. Pupils are equal and they are reactive. Input and Output: The patient's input and output, urine output was [id number]. He is currently still positive balance of 410 during the hospital stay. DIAGNOSTIC DATA: A KUB this morning shows worsening gaseous distention of the transverse colon, but no significant small bowel distention. A chest x-ray showed diffuse hazy infiltrates throughout the lungs and infiltrate in the left upper lobe. No new consolidation. The pathology report from the colon did show active colitis with ulcerative debris. ASSESSMENT AND PLAN: 1. Acute hypoxemic respiratory failure. The patient continues to be on the mechanical ventilation. Pulmonary Medicine is on board. 2. Colon distention concerning for [place] syndrome versus bowel obstruction. Nasogastric tube is in place. 3. Acute renal failure with creatinine up to 1.4. We will continue to monitor. 4. History of Parkinson disease. 5. Benign prostatic hypertrophy. The patient continues with the Flomax. 6. Fluid overload. We will continue with the diuretic therapy. 7. Irregular tachyarrhythmia concerning for atrial fibrillation. The patient is actually on oral Cardizem and Lopressor. Unfortunately, his heart rate continues to be remarkably high, and we are going to start him on Cardizem drip. 8. Nutritional needs. At this point, Mr. Wise will be nothing by mouth. We will continue to stimulate his gut from below. We will continue with the Clinimix. I will add lipid infusion for 24 hours and then we will reevaluate his gastrointestinal tract. cc: Sotero Kasper MD
[2019-08-10] MEDS ORDERED: LIPOSYN 20% 250 ML IV SCH (13:30)
--- NOTE | 2019-08-10 13:44 | PROGRESS NOTE ---
DATE: 08/10/2019 SUBJECTIVE: The patient is intubated, sedated on assist control ventilation. OBJECTIVE: Vital signs: Noted. Blood pressure is 106/79, pulse ox is 95 percent. Head and neck: Trachea midline. ET tube is in place. Chest: Reduced entry bilaterally. Cardiac: S1, S2. Abdomen: Nontender. Extremities: Lower limb examination, +2 pedal edema. Neurologic exam: Sedated. DIAGNOSTIC DATA: Creatinine 1.4. CMP noted. Hemoglobin 10.7. CBC noted. The pH is 7.47, pCO2 46, and PO2 87 on assist control rate of 10, FiO2 70%, tidal volume 600, PEEP of 5. Chest x-ray from today was reviewed and showed stable chest. ASSESSMENT AND PLAN: This is an 79-year-old man with Parkinson disease and Andree syndrome and small-bowel obstructions, aspiration pneumonia and respiratory failure. 1. Respiratory failure. We titrated assist-control ventilation for patient needs. We will closely monitor responses. He failed weaning trials today. 2. Aspiration pneumonia and antibiotics were ordered. I will monitor response to those. 3. Small bowel obstructions, and surgery is following and he is NPO and on NG tube suction. 4. DVT and GI prophylaxis. 5. We will monitor his creatinine. 6. Atrial fibrillation. Cardizem drip is on and off and we will monitor the response and titrate accordingly. Currently, it is on standby. Thank you for the courtesy of this consultation. Critical care evaluation time is 35 minutes. cc: Kaylee Shah MD MTDD
[2019-08-11] MEDS: DIPRIVAN 1% 1,000 MG/100 ML BOTTLE IV SCH ×6 (01:02→16:18)
[2019-08-11] MEDS: CARDIZEM PO SCH ×2 (01:02→09:56)
[2019-08-11] MEDS: VANCOMYCIN ORAL SOLN NG SCH ×2 (01:03→08:00)
[2019-08-11] MEDS: MORPHINE IV PRN (01:03)
[2019-08-11] MEDS: NS IV SCH ×2 (01:30→15:00)
[2019-08-11] MEDS: DEPACON IV SCH ×2 (01:30→15:00)
[2019-08-11] MEDS: DUONEB (A & A) INH SCH ×8 (02:19→23:35)
[2019-08-11] MEDS ORDERED: NS 500 ML IV ONE (02:55)
[2019-08-11] MEDS ORDERED: LEVOPHED 8 MG in D5 1/2 NS 250 ML IV SCH (03:30)
[2019-08-11] MEDS: FLAGYL 500 MG/NS 500 MG/100 ML IVPB IV SCH ×2 (03:39→09:47)
[2019-08-11] MEDS: CARDIZEM 100 MG/NS 100 MG/100 ML IVPB IV SCH ×2 (03:40→09:47)
[2019-08-11] MEDS: CLINIMIX E 4.25%-5% SOLUTION 1,000 ML IV SCH ×2 (03:40→16:19)
[2019-08-11 04:40] LABS: URINE SOURCE CATH
[2019-08-11] MEDS: MAXIPIME 1 GM in NS 50 ML IV SCH (04:59)
[2019-08-11 05:10] LABS: ALLEN TEST YES; BE 6.2 mmoll (-3.0-3.0); BLOOD TYPE ARTERIAL; HCO3-(ACT) 29.7 mmoll (20.0-26.0); METHB 1.5 % (0.0-1.5); O2(CT) 7.9 mL/dL (15.0-23.0); O2HB 91.8 % (95.0-99.0); PCO2(98.6) 43 mmHg (35-45); PO2(98.6) 62 mmHg (60-100); SAMPLE BLOOD; SAO2 94.3 % (95.0-100.0); SRATE 10 BPM; TVOL 600 mL; pH(98.6) 7.46 (7.35-7.45)
[2019-08-11 05:11] LABS: MODALITY VENTILATOR
[2019-08-11 05:38] LABS: BILIRUBIN URINE NEGATIVE (NEGATIVE); BLOOD URINE MODERATE (NEGATIVE); COLOR YELLOW; GLUCOSE URINE NEGATIVE (NEGATIVE); KETONE URINE NEGATIVE (NEGATIVE); LEUKOCYTES URINE NEGATIVE (NEGATIVE); NITRITE URINE NEGATIVE (NEGATIVE); PROTEIN URINE 30 mg/dL (NEGATIVE); SP GRAVITY URINE 1.024; TURBIDITY URINE HAZY (CLEAR); UROBILINOGEN URINE NORMAL (NORMAL)
[2019-08-11 05:44] LABS: UR EPITHELIAL CELLS <10 /HPF (<10); URINE RBC <10 /HPF (<10); URINE WBC <10 /HPF (<10)
[2019-08-11 05:56] LABS: URINE CASTS NONE SEEN; URINE CRYSTALS NONE SEEN; URINE SMALL ROUND CELLS NONE SEEN; URINE YEAST PRESENT
[2019-08-11 05:57] LABS: URINE BACTERIA 3+ /HPF
--- NOTE | 2019-08-11 07:40 | Diag Imaging Result Doc PS360 ---
CHEST-PORTABLE - 08/11/2019 INDICATION: mechanical ventilator COMPARISON: 08/10/2019 FINDINGS: Support lines and tubes are stable and in good position. Stable severely low lung volumes. Stable significant infiltrate throughout the left lung diffusely. There is slight worsening patchy infiltrate throughout the right lung. IMPRESSION: Slight worsening patchy infiltrate throughout the right lung. Electronically signed by Leo Greenwood 08/11/2019 7:37 AM
[2019-08-11 09:29] LABS: BASO# 0.04 X1000 (0.0-0.2); BASO% 0.3 % (0.0-0.8); EOS# 0.01 X1000 (0.0-0.7); EOS% 0.1 % (0.0-10.0); HEMOGLOBIN 11.6 g/dL (14.0-18.0); IMM GRAN# 0.27 X1000 (0.0-0.04); LYMPH# 0.85 X1000 (1.2-3.4); LYMPH% 6.4 % (20.5-51.1); MCH 28.6 PG (27-31); MCHC 30.5 g/dL (33-37); MCV 93.6 FL (81-99); MONO# 0.39 X1000 (0.11-0.59); MPV 10.8 FL (7.4-10.4); NEUT# 11.64 X1000 (1.4-6.5); NEUT% 88.2 % (42.2-75.2); PLT 261 X1000 (130-400); RBC 4.06 XMIL (4.7-6.1); RDW 14.8 % (11.5-14.5)
[2019-08-11] MEDS: NEURONTIN PO SCH (09:47)
[2019-08-11] MEDS: LASIX IV SCH ×2 (09:47→21:53)
[2019-08-11] MEDS: SOLU-MEDROL IV SCH (09:47)
[2019-08-11] MEDS: SINEMET 25/100 PO SCH ×2 (09:48→21:54)
[2019-08-11] MEDS: MILK OF MAGNESIA PO SCH (09:49)
[2019-08-11] MEDS: MIRALAX PO SCH ×2 (09:49→21:54)
[2019-08-11] MEDS: DULCOLAX PR SCH ×2 (09:49→21:54)
[2019-08-11 09:53] LABS: ALB/GLOB RATIO 0.7; ALBUMIN 2.5 g/dL (3.5-5.0); CALCIUM 8.5 mg/dL (8.8-10.2); CREATININE 1.5 mg/dL (0.7-1.2); POTASSIUM 4.3 mmol/L (3.5-5.1); TOTAL BILIRUBIN 0.46 mg/dL (0.20-1.00)
[2019-08-11] MEDS: MYLICON PO SCH ×4 (09:56→21:54)
[2019-08-11 10:01] LABS: ANISOCYTOSIS 1+; BASO 1 % (0-1); LARGE PLATELETS OCCASIONAL; LYMPHS 5 % (21-51); MONO 3 % (1-9); POLYCHROM 1+; SEGS 89 % (42-75)
--- NOTE | 2019-08-11 11:53 | PROGRESS NOTE ---
DATE: 08/11/2019 SUBJECTIVE: This morning Mr. Wise continues to be intubated. No new complaints. Per the nursing staff last night however his heart rate continued to be persistently high, so Cardizem drip was restarted and Cardiology has been reconsulted. OBJECTIVE: Vital signs: Blood pressure is 114/71, pulse is currently 145, respirations 24, temperature is 97 degrees. General: Mr. Wise is an 79-year-old gentleman. He is in bed. He is currently intubated and sedated. HEENT: Mucosa is pink and moist. Anicteric. Acyanotic. Neck: Supple. There is positive JVD in the neck. Chest: Air entry is bilaterally reduced with crackles posteriorly. Cardiovascular: Irregularly irregular. I did not hear any murmurs. GI: Abdomen is soft, protuberant. There is mild edema on the lateral aspect of the abdominal wall. Extremities: About 2+ pedal edema. LAB[employer]ER E[employer]ODUCING [employer]: Patient is intubated and sedated. Pupils are equal and they are reactive. The patient will withdraw to painful stimulation. INPUT/OUTPUT: Urine output was 2,750. The patient is currently positive balance of 931. CURRENT MEDICATIONS: Have all been reviewed. He is on cefepime, today is day 8, and metronidazole. LABORATORY DATA: WBC is up to 13.2. All of the rest of chemistries are unremarkable. So far blood cultures have been unremarkable. IMAGING STUDIES: A chest x-ray this morning shows slight worsening, patchy infiltrate throughout the right lung. ASSESSMENT AND PLAN: 1. Acute hypoxemic respiratory failure, presumably a combination of pneumonia and fluid. The patient is still on mechanical ventilation. I understand yesterday they had to go up on FiO2, he is currently 100% on FiO2. 2. Distended colon, concerning for Andree syndrome versus small bowel obstruction. Nasogastric tube is in place for upper GI decompression. Surgery is following. 3. Acute renal failure. Creatinine is 1.4. We will continue to monitor. He is making adequate urine. 4. History of benign prostatic hypertrophy. 5. Fluid overload. The patient is on diuretic therapy. 6. Irregular tachyarrhythmia with some traces concerning for atrial fibrillation. The patient is currently with rapid ventricular response. He has been started on Cardizem. Cardiology has been reconsulted. 7. Nutritional needs. Mr. Wise continues to be nothing by mouth because he has not been tolerating the tube feedings. He has been transitioned to Clinimix. We are going to continue with this at least for the weekend, and rechallenge the gastrointestinal tract, hopefully on Tuesday, to see if he is able to assimilate the feedings. 8. Multifocal infiltrate, worse on the right side, associated with worsening oxygen demands. Unsure if Mr. Wise has developed another or a different pathogen in the hospital. He has been on cefepime for 8 days, so I am going to discontinue that and put him on meropenem. We will also add Zyvox for possible methicillin-resistant Staphylococcal aureus coverage and we will re-culture his sputum. cc: Sotero Kasper MD
[2019-08-11] MEDS: ZYVOX 600 MG/D5W 600 MG/300 ML IVPB IV SCH ×2 (12:00→21:55)
[2019-08-11] MEDS: MERREM 500 MG in NS 50 ML IV SCH ×2 (12:00→21:53)
[2019-08-11] MEDS: PROTONIX IV SCH (12:25)
[2019-08-11] MEDS: BREVIBLOC 2.5 GM/NS 2.5 GM/250 ML IV.SOLN IV SCH ×3 (13:18→21:41)
--- NOTE | 2019-08-11 13:20 | CARDIOLOGY PROGRESS NOTE ---
DATE: 08/11/2019 SUBJECTIVE: Mr. Wise is intubated, sedated, not responsive to verbal or physical stimuli. OBJECTIVE: Vital Signs: He is afebrile. Heart rates are in the 130s to 140s. Blood pressure 114/71. Generally: No acute distress. Cardiovascular: He is in a tachycardic and irregular rhythm. He has gross anasarca. His telemetry tracing currently appears most suggestive of atrial fibrillation. Chest: Coarse breath sounds diffusely. No increased work of breathing on mechanical ventilation. Abdomen: Protuberant, soft. PERTINENT DATA: His white count is 13.2, hematocrit 38, platelet count 261. He has a left shift. Sodium is 143, potassium 4.3, BUN 118, creatinine is 1.5. His BUN has been increasing steadily essentially since the ; it is now 118. His creatinine is 1.5. ProBNP 7937. ASSESSMENT: Mr. Wise is an 79-year-old gentleman with respiratory failure. Presently on the ventilator. PLAN: His I's and O's appear to be matched relatively well over the last few days. Slightly positive, but has over 3 L of urine out each day. Presently, I will stop the diltiazem and place him on esmolol to try to achieve better rate control. We will check a Hemoccult. Laboratories in the morning. cc: Toni Tan MD
--- NOTE | 2019-08-11 14:21 | PROGRESS NOTE ---
DATE: 08/11/2019 SUBJECTIVE: He is intubated, sedated in the intensive care unit being critically monitored. OBJECTIVE: Vital signs: Seen and blood pressure is 89/49 with MAP of 54, pulse oximetry 96 percent on assist-control ventilation. Head and neck: NG tube in place. Chest: Reduced entry. Cardiac: S1, S2. Abdomen: Nontender. Extremities: +3 pedal edema. Neurologic: Sedated. LABS INVESTIGATIONS: CMP serum creatinine 1.5. CBC seen, WBCs 13.2. Chest x- ray was ordered for today and reviewed showing worsening of bilateral infiltrates. ProBNP is 7937. He is already on diuresis with the Lasix 60 mg IV q.12 hours. ASSESSMENT AND PLAN: An 79-year-old man with 1. Chronic Parkinson disease. 2. Aspiration pneumonia. 3. Acute respiratory hypoxic respiratory failure. 4. Congestive heart failure clinically and by elevated proBNP on diuresis. 5. We titrated assist-control ventilation settings. Patient needs monitored. Clinical goals will closely follow up responses. 6. We are titrating sedation per patient needs and close monitoring responses per patient needs and clinical protocols for goals. 7. The patient has shock requiring titrating pressors with Levophed but there are standby for the time being. CRITICAL CARE TIME: 31 minute. cc: Kaylee Shah MD MTDD
[2019-08-11] MEDS ORDERED: LANOXIN IV ONE (17:25)
[2019-08-12] MEDS: BREVIBLOC 2.5 GM/NS 2.5 GM/250 ML IV.SOLN IV SCH ×9 (00:17→22:30)
[2019-08-12] MEDS: DIPRIVAN 1% 1,000 MG/100 ML BOTTLE IV SCH ×6 (02:35→22:58)
[2019-08-12] MEDS: MERREM 500 MG in NS 50 ML IV SCH ×3 (03:19→20:29)
[2019-08-12] MEDS: DEPACON IV SCH ×2 (03:19→14:55)
[2019-08-12] MEDS: NS IV SCH ×2 (03:19→14:55)
[2019-08-12] MEDS: DUONEB (A & A) INH SCH ×6 (03:55→23:30)
[2019-08-12 05:22] LABS: ALLEN TEST YES; BE 2.8 mmoll (-3.0-3.0); BLOOD TYPE ARTERIAL; HCO3-(ACT) 27.1 mmoll (20.0-26.0); METHB 1.2 % (0.0-1.5); O2HB 95.6 % (95.0-99.0); PCO2(98.6) 40 mmHg (35-45); PO2(98.6) 88 mmHg (60-100); SAMPLE BLOOD; SAO2 98.2 % (95.0-100.0); SRATE 10 BPM; THB 12.6 g/dL (11.5-17.4); TVOL 600 mL; pH(98.6) 7.44 (7.35-7.45)
[2019-08-12 05:23] LABS: MODALITY VENTILATOR
[2019-08-12 06:46] LABS: BASO# 0.01 X1000 (0.0-0.2); BASO% 0.1 % (0.0-0.8); HEMATOCRIT 37.1 % (42.0-52.0); HEMOGLOBIN 11.3 g/dL (14.0-18.0); IMM GRAN# 0.15 X1000 (0.0-0.04); IMM GRAN% 1.6 % (0.0-0.5); LYMPH# 0.41 X1000 (1.2-3.4); LYMPH% 4.5 % (20.5-51.1); MCH 28.3 PG (27-31); MCHC 30.5 g/dL (33-37); MONO% 2.2 % (1.7-9.3); MPV 11.6 FL (7.4-10.4); NEUT# 8.44 X1000 (1.4-6.5); NEUT% 91.6 % (42.2-75.2); PLT 224 X1000 (130-400); RBC 3.99 XMIL (4.7-6.1); RDW 14.4 % (11.5-14.5); WBC 9.21 X1000 (4.8-10.8)
[2019-08-12 07:12] LABS: AGAP 15; ALB/GLOB RATIO 0.8; ALBUMIN 2.6 g/dL (3.5-5.0); ALKALINE PHOSPHATASE 90 U/L (32-122); BUN 118 mg/dL (8-22); CALCIUM 8.3 mg/dL (8.8-10.2); CHLORIDE 101 mmol/L (98-107); COSMO 325; CREATININE 1.6 mg/dL (0.7-1.2); ESTIMATED GFR 42; GLUCOSE 203 mg/dL (70-104); GOT 13 U/L (10-34); GPT < 5 U/L (10-44); POTASSIUM 5.1 mmol/L (3.5-5.1); SODIUM 141 mmol/L (136-145); TCO2 25 mmol/L (25-35); TOTAL BILIRUBIN 0.52 mg/dL (0.20-1.00)
[2019-08-12] MEDS: CLINIMIX E 4.25%-5% SOLUTION 1,000 ML IV SCH ×2 (08:00→19:13)
[2019-08-12] MEDS: MILK OF MAGNESIA PO SCH (08:14)
[2019-08-12] MEDS: MIRALAX PO SCH ×2 (08:14→20:28)
[2019-08-12] MEDS: DULCOLAX PR SCH ×2 (08:14→20:29)
[2019-08-12] MEDS: SINEMET 25/100 PO SCH ×2 (08:17→20:31)
[2019-08-12] MEDS: MYLICON PO SCH ×4 (08:17→20:31)
[2019-08-12] MEDS: LASIX IV SCH ×2 (08:18→20:29)
--- NOTE | 2019-08-12 08:32 | Diag Imaging Result Doc PS360 ---
CHEST-PORTABLE - 08/12/2019 INDICATION: dyspnea COMPARISON: 08/11/2019 FINDINGS: Support lines and tubes are stable and in good position. Stable severely low lung volumes. Stable extensive heterogeneous infiltrates bilaterally left greater than right. Heart size remains enlarged. IMPRESSION: No significant change from prior. Electronically signed by Leo Greenwood 08/12/2019 8:30 AM
[2019-08-12] MEDS ORDERED: HEPARIN SUBQ SCH (09:00)
[2019-08-12] MEDS ORDERED: LASIX IV ONE (09:48)
--- NOTE | 2019-08-12 10:24 | GENERAL SURGERY PROGRESS NOTE ---
DATE: 08/12/2019 SUBJECTIVE: He is afebrile. He continues on the ventilator. Heart rate is 124 and irregular blood pressure is 90 systolic. He is stooling. His abdomen is soft. Bowel sounds are present. White count is 9200, hemoglobin 11.3, hematocrit 37, BUN is up to 118. ASSESSMENT: In view of his respiratory status, I think NG suction should continue. He is starting to have bowel movement activity. His abdomen is soft. Bowel sounds are present. No new recommendations currently. cc: Adonis Knox MD
[2019-08-12] MEDS ORDERED: CORDARONE 360 MG/D5W 360 MG/200 ML IV.SOLN IV ONE (11:41)
--- NOTE | 2019-08-12 11:57 | CARDIOLOGY PROGRESS NOTE ---
DATE: 08/12/2019 SUBJECTIVE: Mr. Wise is on the ventilator, sedated. OBJECTIVE: Vital Signs: Afebrile. Heart rates 110s to 130s. Blood pressure 101/67. I's and O's have been significantly more positive in the last 24 hours, positive 2.5 L. General: No acute distress. Cardiovascular: He sounds to be in a irregularly irregular rhythm. He has gross anasarca present. Extremities: Warm and well-perfused extremities. Chest: Exam has coarse breath sounds diffusely. No increased work of breathing. Some expiatory wheezes. Abdomen: Soft, nontender. PERTINENT DATA: Sodium 141, potassium 5.1, BUN 118, creatinine is 1.6, this is roughly stable from yesterday. ProBNP 6116. White count 9.2, hematocrit 37. ASSESSMENT: Mr. Wise is an 79-year-old gentleman currently with respiratory failure, presumed secondary to aspiration pneumonia. Has currently atrial fibrillation. PLAN: We will add in amiodarone today. He is currently on esmolol. We will try to achieve rate control less than 120. He is currently on diuretics. Dr. Beaulieu will be back to see the patient in the morning. cc: Toni Tan MD
[2019-08-12] MEDS: ZYVOX 600 MG/D5W 600 MG/300 ML IVPB IV SCH ×2 (12:07→23:33)
[2019-08-12] MEDS: SODIUM CHLORIDE 0.9% INJ SCH (12:11)
[2019-08-12] MEDS: PROTONIX IV SCH (12:11)
--- NOTE | 2019-08-12 13:27 | PROGRESS NOTE ---
DATE: 08/12/2019 SUBJECTIVE: This morning, Mr. Wise continues to be intubated. No new complaints. Per the nursing staff, he is tolerating the ventilator. OBJECTIVE: Vital Signs: Blood pressure is 119/64, pulse of 128, respirations are 20, temperature is 98.5 degrees. General Examination: Mr. Wise is an 79-year-old, gentleman. He is in bed, currently intubated. HEENT: mucosa is pink and moist. Anicteric. Acyanotic. Neck: Supple. There is positive JVD. Respiratory System: Air entry is bilaterally reduced. There are crackles posteriorly. Cardiovascular: Irregularly irregular. No murmurs. GI: Abdomen is soft. It is protuberant. Some edema in the lateral aspect of the abdominal wall. Extremities: About 2+ pedal edema. SURGICAL ASSISTANT: The patient is intubated but will withdrawal to painful stimulation. Is and Os: Urine output was 2750. Currently positive balance of 931. Laboratory Data: Has all been reviewed. WBC has normalized. Creatinine is up slightly to 1.6. We will continue to monitor. ProBNP is also down to 6116. ASSESSMENT: 1. Acute hypoxemic respiratory failure. Patient continues to be intubated. 2. Distended colon, concerning for Irene syndrome versus small-bowel obstruction. Nasogastric tube is in place. Surgery is on board. 3. Acute kidney injury. We will continue to monitor. Creatinine went up slightly to 1.4. He has continued making adequate urine. We suspect the possibility of underlying cardiorenal syndrome. 4. History of benign prostatic hypertrophy. 5. Fluid overload. The patient is on diuretic therapy. It is secondary to congestive heart failure with preserved ejection fraction. The ejection fraction is 55%. 6. Atrial fibrillation with rapid ventricular response. The patient was initially on a Cardizem drip. This was switched to esmolol. This morning, it has been switched to amiodarone. Cardiology is on board. 7. Multifocal infiltrate, worse on the right, concerning for pneumonia. Patient is on antimicrobial coverage. cc: Sotero Kasper MD
--- NOTE | 2019-08-12 15:14 | PROGRESS NOTE ---
DATE: 08/12/2019 SUBJECTIVE: The patient is on assist-control ventilation in the intensive care unit being critically monitored. OBJECTIVE: Vital signs: Seen. Head and neck: Trachea midline. ET tube is in place. Chest: Reduced entry. Crackles bilaterally. Cardiac: S1 and S2. Abdomen: Nontender. Extremities: Lower limb examination, +3 pedal edema. Neurology: Sedated. LABS AND INVESTIGATIONS: CBC, CMP, chest x-ray where reviewed and also ABGs with creatinine being 1.6, potassium 5.1, hemoglobin 11.3, WBC 9.21, pH 7.44, pCO2 40, PO2 88 on assist control, rate 10, FiO2 100%, PEEP of 8, and tidal volume of 600. A chest x-ray from today was reviewed and showed no significant change from prior. ASSESSMENT AND PLAN: An 79-year-old man with: 1. Aspiration pneumonia. Antibiotics are given and we are following responses clinically and labs closely. 2. Acute respiratory failure. We are adjusting vent settings and monitoring responses closely per clinical protocol and we are monitoring his responses on oxygen saturation and ABG closely. 3. Congestive heart failure and tachycardia. On multiple drips. Amiodarone started also. 4. We are titrating sedation per patient's need and closely monitoring clinical responses and adjusting care protocols. 5. He has high oxygen demand and on assist-control ventilation. CRITICAL CARE TIME: Thirty-five minutes. cc: Kaylee Shah MD
[2019-08-12] MEDS ORDERED: CORDARONE 540 MG in D5W 289.2 ML IV ONE (17:41)
[2019-08-13] MEDS: BREVIBLOC 2.5 GM/NS 2.5 GM/250 ML IV.SOLN IV SCH ×4 (01:20→09:20)
[2019-08-13] MEDS: DEPACON IV SCH (01:52)
[2019-08-13] MEDS: NS IV SCH (01:52)
[2019-08-13] MEDS: DIPRIVAN 1% 1,000 MG/100 ML BOTTLE IV SCH ×3 (02:23→09:10)
[2019-08-13] MEDS: DUONEB (A & A) INH SCH ×3 (03:25→11:49)
[2019-08-13] MEDS: MERREM 500 MG in NS 50 ML IV SCH ×2 (03:36→11:35)
[2019-08-13 04:57] LABS: ALLEN TEST YES; BE 2.4 mmoll (-3.0-3.0); BLOOD TYPE ARTERIAL; HCO3-(ACT) 26.8 mmoll (20.0-26.0); METHB 0.8 % (0.0-1.5); O2(CT) 15.9 mL/dL (15.0-23.0); O2HB 96.7 % (95.0-99.0); PCO2(98.6) 38 mmHg (35-45); PO2(98.6) 90 mmHg (60-100); SAMPLE BLOOD; SAO2 99.6 % (95.0-100.0); SRATE 10 BPM; THB 11.6 g/dL (11.5-17.4); TVOL 600 mL; pH(98.6) 7.45 (7.35-7.45)
[2019-08-13 05:00] LABS: MODALITY VENTILATOR
--- NOTE | 2019-08-13 06:12 | Diag Imaging Result Doc PS360 ---
EXAM: CHEST-PORTABLE HISTORY: dyspnea TECHNIQUE: Single view COMPARISON: 08/12/2019 FINDINGS: No change in the endotracheal tube, nasogastric tube, or the right-sided PICC line. There are dense infiltrates throughout both lungs. These are most prominent in the left lower lobe. There is a small left pleural effusion with basilar atelectasis. IMPRESSION: Interval worsening Electronically signed by Joseluis Connors 08/13/2019 6:09 AM
--- NOTE | 2019-08-13 06:54 | GENERAL SURGERY PROGRESS NOTE ---
DATE: 08/13/2019 SUBJECTIVE: The patient seems to be doing about the same. Nursing staff reports no major changes. They did put him on medication with amiodarone and esmolol for his heart rate, and it seems to have improved. Nursing staff reports that they have put him back on his tube feeds at 20. Initial residuals were high, but now it is more like 20 to 30. OBJECTIVE: Vital Signs: The patient is currently afebrile, heart rate in the 70s, blood pressure stable. General: Sedated on the ventilator. Cardiovascular: Mostly regular. Lungs: Some coarse sounds noted. Abdomen: Soft, less distended than Tuesday, but still with hypoactive bowel sounds. Tube feeds going at 20 mL an hour. LABORATORY DATA: ABG reviewed this morning. ASSESSMENT AND PLAN: An 79-year-old gentleman with acute respiratory failure and small-bowel obstruction. 1. Small-bowel obstruction. At this time, I am not convinced that he has had definitive return of bowel function. He still has an ileus-like sounding on physical exam, and even though his residuals are low, his tube feeds have not been going very high, so I am unsure how well he is still tolerating. His most recent study on abdominal film on 08/10/2019 showed worsening colonic distention, but we have not had a film since then. 2. Acute respiratory failure. At this time, the patient has been ventilated since 08/03/2019, which puts him around 10 days of intubation. Family does not want any more increased intervention if he declines, but may need to consider discussion in the near future about tracheostomy, if they want to proceed with that. cc: Ricky Gould MD
[2019-08-13 07:00] LABS: BASO# 0.04 X1000 (0.0-0.2); BASO% 0.3 % (0.0-0.8); EOS# 0.04 X1000 (0.0-0.7); EOS% 0.3 % (0.0-10.0); HEMATOCRIT 35.8 % (42.0-52.0); IMM GRAN# 0.31 X1000 (0.0-0.04); IMM GRAN% 2.3 % (0.0-0.5); LYMPH# 0.53 X1000 (1.2-3.4); MCH 28.5 PG (27-31); MCHC 30.7 g/dL (33-37); MCV 92.7 FL (81-99); MONO# 0.34 X1000 (0.11-0.59); MONO% 2.6 % (1.7-9.3); MPV 11.8 FL (7.4-10.4); NEUT# 11.97 X1000 (1.4-6.5); NEUT% 90.5 % (42.2-75.2); PLT 233 X1000 (130-400); RBC 3.86 XMIL (4.7-6.1); RDW 14.5 % (11.5-14.5); WBC 13.23 X1000 (4.8-10.8)
[2019-08-13 07:19] LABS: CALCIUM 7.9 mg/dL (8.8-10.2); CREATININE 1.5 mg/dL (0.7-1.2); POTASSIUM 4.8 mmol/L (3.5-5.1)
[2019-08-13 07:26] LABS: BANDS 2 % (0-1); LYMPHS 8 % (21-51); MONO 2 % (1-9); SEGS 88 % (42-75)
[2019-08-13] MEDS: MIRALAX PO SCH (08:15)
[2019-08-13] MEDS: MILK OF MAGNESIA PO SCH (08:15)
[2019-08-13] MEDS: DULCOLAX PR SCH (08:15)
[2019-08-13] MEDS: SINEMET 25/100 PO SCH (08:15)
[2019-08-13] MEDS: LASIX IV SCH (08:15)
[2019-08-13] MEDS: MYLICON PO SCH (08:19)
[2019-08-13] MEDS: PROTONIX IV SCH (11:35)
[2019-08-13] MEDS: ZYVOX 600 MG/D5W 600 MG/300 ML IVPB IV SCH (11:35)
[2019-08-13] MEDS ORDERED: ATIVAN IV PRN (11:48)
[2019-08-13] MEDS ORDERED: ALBUMIN 25% IV SCH (12:00)
--- NOTE | 2019-08-13 12:12 | PROGRESS NOTE ---
DATE: 08/13/2019 SUBJECTIVE: This morning, Mr. Wise continues to be in the Critical Care Unit, remarkably very sick, and he has been desaturating while sitting on 100% FiO2. OBJECTIVE: Current Vital Signs: Blood pressure is 133/72, pulse of 77, respirations 22, temperature 98.0, the patient is saturating 93% on mechanical ventilation. General: Mr. Wise is an 79-year-old, elderly, gentleman. He is in bed. He is currently intubated and sedated. HEENT: Mucosa is pink and moist. Anicteric. Acyanotic. Neck: Supple. There is positive JVD. Respiratory: Air entry is bilaterally reduced. There are diffuse crackles posteriorly. Cardiovascular: Regular rate and rhythm with occasional extrasystolic beats. No murmurs. GI: Abdomen is protuberant. There is edema in the lateral aspect of the abdominal wall. Bowel sounds are remarkably low. Extremities: About 2+ pedal edema, both in the lower extremities and the upper extremities. CORPORATE TECHNICAL RECRUITER: The patient is intubated. Will barely withdraw to painful stimulation. Pupils are equal and they are reactive. The patient's I's and O's show urine output was 3700, total positive balance of 6509 during the hospital course. IMAGING STUDIES: This morning, chest x-ray shows interval worsening. There are dense infiltrates throughout both lungs, most prominent in the left lower lobe. There is also a small left pleural effusion with bibasilar atelectasis. ASSESSMENT: 1. Acute hypoxemic respiratory failure. The patient continues to be intubated. 2. Bilateral multifocal infiltrates concerning for aspiration pneumonia. The patient is on antimicrobial coverage. 3. Distended colon concerning for Andree's syndrome versus small-bowel obstruction. Nasogastric tube is still in place. The patient's abdomen continues to be distended with extremely hypoactive bowel. 4. Acute kidney injury. Creatinine is 1.5 today. 5. History of benign prostatic hypertrophy. 6. Anasarca due to multifactorial etiology, including hypoalbuminemia, congestive heart failure with preserved ejection fraction, and fluid resuscitation. 7. Atrial fibrillation with rapid ventricular response. The patient is currently on both amiodarone and esmolol drip. 8. Congestive heart failure with preserved ejection fraction. In general, Mr. Wise has been intubated for the past 10 days. He continues to need 100% of FiO2, and even on that, he is still saturating borderline. He is extremely volume overloaded, and he has not shown any clinical improvement throughout the hospital course. I have spoken extensively with the son, and also made him aware about the extremely poor prognostic nature of his father's current medical condition. At this point, the family members want us to transition Mr. Wise to comfort care. They want us to extubate him, and transition him to the medical floor on VIDEO PRODUCTION ASSISTANT, and consult palliative nurse for GIP evaluation. I have communicated this to the attending nurse and also to the palliative nurse. cc: Sotero Kasper MD
[2019-08-13] MEDS: MORPHINE IV PRN ×4 (14:20→19:39)
[2019-08-13] MEDS ORDERED: LASIX IV SCH (16:00)
[2019-08-13] MEDS: ATIVAN IV PRN ×4 (16:14→19:39)
--- NOTE | 2019-08-13 16:41 | EKG Report ---
Test Performed on : 08/11/2019 02:57:41 AM Test Reason : ICU. No order in [place] Blood Pressure : / mmHG Vent. Rate : 170 BPM Atrial Rate : 166 BPM P-R Int : 000 ms QRS Dur : 086 ms QT Int : 284 ms P-R-T Axes : 000 -25 043 degrees QTc Int : 477 ms Undetermined rhythm Low voltage QRS Nonspecific ST and T wave abnormality Abnormal ECG When compared with ECG of 11-AUG-2019 01:16, (Unconfirmed) Current undetermined rhythm precludes rhythm comparison, needs review Confirmed by Yvette VITAL, Dayton Barrera ([id number]) on 08/14/2019 9:37:48 AM
--- NOTE | 2019-08-13 16:41 | EKG Report ---
Test Performed on : 08/11/2019 01:16:14 AM Test Reason : ICU No order in MT Blood Pressure : / mmHG Vent. Rate : 179 BPM Atrial Rate : 312 BPM P-R Int : 000 ms QRS Dur : 084 ms QT Int : 276 ms P-R-T Axes : 000 -21 039 degrees QTc Int : 476 ms Undetermined rhythm Low voltage QRS Nonspecific T wave abnormality Abnormal ECG When compared with ECG of 10-AUG-2019 08:56, (Unconfirmed) Current undetermined rhythm precludes rhythm comparison, needs review Confirmed by Yvette VITAL, Dayton Barrera ([id number]) on 08/14/2019 9:37:44 AM
--- NOTE | 2019-08-13 20:44 | PULMONOLOGY PROGRESS NOTE ---
DATE: 08/13/2019 SUBJECTIVE: The patient remains poorly responsive. He remains on mechanical ventilation and is on 100% FiO2. OBJECTIVE: Vital signs: BP 135/69, heart rate 103, respiratory rate 36, oxygen saturation 53%. HEENT: Pupils are sluggish. Oropharynx appears dry. Neck: Supple. Chest: Reveals diffuse bilateral rhonchi. Cardiac exam: S1 and S2. Abdomen: Mildly distended with no bowel sounds present. Extremities: Cool to the touch. IMPRESSION: Unfortunate 79-year-old male with: 1. Acute hypoxemic respiratory failure. 2. Aspiration pneumonia with progressive hypoxemia. 3. Parkinson disease. 4. Dementia. 5. Bowel dysfunction. DISCUSSION: An 79-year-old with problems outlined above. Despite 19 days of hospitalization, he continues [*]. The patient is not going to survive this hospital stay. RECOMMENDATION: Agree with plans for compassionate extubation with comfort measures. cc: Lazarus Glasgow MD
[2019-08-13 22:22] VITALS: BP 117/61
--- NOTE | 2019-08-15 06:26 | DISCHARGE SUMMARY ---
ADMISSION DATE: 07/25/2019 DISCHARGE DATE: 08/13/2019 DATE AND TIME OF : 08/13/2019 at 2100 hours. CONSULTATION DURING THIS ADMISSION: Surgery was consulted. Patient was seen by Dr. Gould. Pulmonary Medicine was consulted; patient was seen by Dr. Glasgow. GI was consulted; patient was seen by Dr. Eldridge. INVASIVE PROCEDURE DONE DURING THIS ADMISSION: Colonoscopy was done by Dr. Ruffin on 08/03/2019. ADMISSION DIAGNOSES: 1. Hyperkalemia. 2. Leukocytosis. 3. Presumed pneumonia. DIAGNOSES AT THE TIME OF : 1. Acute hypoxemic respiratory failure. 2. Bilateral multifocal infiltrate concerning for aspiration pneumonia. 3. Distended colon concerning for Lafayette's syndrome versus small bowel obstruction. 4. Acute kidney injury. 5. Anasarca. 6. Atrial fibrillation with rapid ventricular response. 7. Congestive heart failure with preserved ejection fraction. 8. Parkinson disease. 9. Hypertension. PRESENTING COMPLAINT: Shortness of breath. HISTORY OF PRESENT COMPLAINT: Mr. Wise was an 79-year-old male who is resident of a halfway facility, started having some shortness of breath, body aches, edema, was brought into the emergency room. Initially at [place] he was evaluated. IMAGING STUDIES DONE: Include a chest x-ray which showed global low volumes. A CT scan of the chest was done which showed bibasilar interstitial edema and/or fibrosis. Mr. Wise was seen and transferred to [facility] for higher level of care. HOSPITAL COURSE: Mr. Wise was initially admitted to the medical floor, started on broad- spectrum IV antibiotics, was put on supplemental oxygen and Lasix. At some point during the hospital course, he was found to have a dilated colon. Surgery was consulted and GI was also consulted. He ended up undergoing colonoscopy after which it was presumed that he probably aspirated more. He subsequently got intubated. Unfortunately, he remained on the ventilator for a very long time. He was not able to come up, even on 100% mechanical ventilation. The Palliative Medicine was consulted after other providers felt that his prognosis was remarkably poor, and that there was no indication that he would survive this hospitalization. The family members decided to compassionately extubate him; that was successfully done. Mr. Wise unfortunately succumbed to his illnesses on 08/13/2019 at 2100 hours, where he was pronounced by the 2 ICU nurses. cc: Sotero Kasper MD
== END 2019-08-13 21:00 | disposition expired | DRG 870 ==
LOC: P.ED 17:01 → SUATTDRO 21:35 → P.MEDSURG 21:35 → ICU 07-26 23:44 → 2N 07-29 14:39 → 1N 08-01 09:47 → ICU 08-03 12:08
PROVIDERS: ATTEND Internal Medicine